=== PATIENT | female | born 1970 | race Caucasian/White ===

== ENCOUNTER 2018-12-30 08:37 | Emergency (ER) | payer OTHER ==
[2018-12-30 08:48] VITALS: PULSE 72; RESP 18
[2018-12-30] MEDS ORDERED: MORPHINE SULFATE 4 MG/ML SYRINGE IM STA (09:08)
--- NOTE | 2018-12-30 09:44 | CT ---
EXAMINATION TYPE: CT brain mike emerson con DATE OF EXAM: 12/30/2018 COMPARISON: None. HISTORY: Fall down stairs CT DLP: 1492.6 mGycm Automated exposure control for dose reduction was used. TECHNIQUE: CT scan of the head and cervical spine are performed without contrast. FINDINGS: BRAIN:Central structures are midline. There is no evidence of hydrocephalus. No acute focal lesion, m ass effect or midline shift is seen. I do not see evidence of intracranial blood. Visualized portions of the paranasal sinuses and mastoids are clear. The bony calvarium is intact. IMPRESSION: NORMAL CT SCAN OF THE BRAIN. CERVICAL SPINE: Visualized portions of the lungs are clear. There is right-sided thyromegaly with felix e calcifications within the thyroid gland. There is some shotty deep cervical adenopathy. Prevertebra l soft tissues are otherwise normal. There is a reversal normal cervical lordosis. Alignment is normal. Atlantoaxial relationships are nor mal. There is degenerative disc disease and hypertrophic spondylosis at C4-5 and C5-6. There is uncoverteb ral joint disease present at these levels. The facets are unremarkable. No definite protrusion is see n. No fracture is identified. IMPRESSION: 1. NO ACUTE OSSEOUS LESION. 2. DEGENERATIVE CHANGE. 3. RIGHT-SIDED THYROMEGALY.
--- NOTE | 2018-12-30 10:48 | ED ---
General Adult HPI - General Chief complaint: Fall Stated complaint: fall down stairs Time Seen by Provider: 12/30/18 08:49 Source: patient, RN notes reviewed Mode of arrival: ambulatory Limitations: no limitations - History of Present Illness Initial comments: 48-year-old female presents to the emergency determine for chief complaint of fall. Patient states she woke up this morning and it was dark and she tripped and fell down [address]. Triage note does say 20 but patient confirms that this is 14 and she had her daughter count. Patient states this happened this morning a couple hours ago but she was in pain so she decided to come to the emergency department. Patient did not lose consciousness but did hit her head and neck. Patient is not on any blood thinners. Patient is complaining of right shoulder pain and upper back pain head and neck pain as well as left lower leg pain. Patient denies any abdominal pain. Denies any lower back pain. No chest pain.Patient has no other complaints at this time including shortness of breath, chest pain, abdominal pain, nausea or vomiting, headache, or visual changes. - Related Data Home Medications Medication Instructions Recorded Confirmed predniSONE See Taper PO DAILY 12/30/18 12/30/18 Allergies Allergy/AdvReac Type Severity Reaction Status Date / Time wool Allergy Unknown Verified 12/30/18 09:53 Review of Systems ROS Statement: Those systems with pertinent positive or pertinent negative responses have been documented in the HPI. ROS Other: All systems not noted in ROS Statement are negative. Past Medical History Additional Past Medical History / Comment(s): Colitis History of Any Multi-Drug Resistant Organisms: None Reported Past Surgical History: Section, Orthopedic Surgery Past Psychological History: No Psychological Hx Reported Smoking Status: Current every day smoker Past Alcohol Use History: Rare Past Drug Use History: None Reported General Exam Limitations: no limitations General appearance: alert, in no apparent distress Head exam: Present: atraumatic (I do not see hematoma present on the scalp), normocephalic, normal inspection Eye exam: Present: normal appearance, PERRL, EOMI. Absent: scleral icterus, conjunctival injection, periorbital swelling ENT exam: Present: normal exam, normal oropharynx, mucous membranes moist, TM's normal bilaterally, normal external ear exam Neck exam: Present: normal inspection, tenderness (Tenderness cervical spine.), full ROM. Absent: meningismus, lymphadenopathy Respiratory exam: Present: normal lung sounds bilaterally. Absent: respiratory distress, wheezes, rales, rhonchi, stridor, chest wall tenderness (No chest wall tenderness or ecchymosis present of the chest) Cardiovascular Exam: Present: regular rate, normal rhythm, normal heart sounds. Absent: systolic murmur, diastolic murmur, rubs, gallop, clicks GI/Abdominal exam: Present: soft, normal bowel sounds. Absent: distended, tenderness, guarding, rebound, rigid, other (No ecchymosis present on the abdomen) Extremities exam: Present: other (Patient has mild amount of ecchymosis present to the right shoulder region with flexion and abduction of the right shoulder to about 90. Radial pulse 2+ in the right upper extremity. Sensation intact, hall supervisor strength 5 out of 5. Full range motion of the right elbow, no tenderness in the forearm. Patient also has ecchymosis noted to the left lower anterior tib-fib area. Is able to ambulate on this. Full range motion of the ankle and knee. Tenderness over area of ecchymosis. DP pulse 2+ bilaterally.) Back exam: Present: vertebral tenderness (She does have generalized thoracic spine tenderness, no lumbar spine tenderness, no ecchymosis present.). Absent: CVA tenderness (R), CVA tenderness (L) Neurological exam: Present: alert, oriented X3, CN II-XII intact Psychiatric exam: Present: normal affect, normal mood Course Vital Signs 12/30/18 08:42 Temperature 98 F Pulse Rate 72 Respiratory 18 Rate Blood Pressure 155/80 O2 Sat by Pulse 98 Oximetry Medical Decision Making - Medical Decision Making 48-year-old female presents to the emergency department for a chief complaint of fall down 14 stairs. No loss of consciousness. No blood thinners. Exam as documented. Brain CT shows no evidence of mass effect or midline shift. No evidence of intracranial blood. CT C-spine shows no acute osseous lesions. It does show right-sided thyromegaly which was discussed with patient. C-spine was cleared, collar removed. X-ray of the right humerus, left tib-fib, thoracic spine shows no acute osseous lesion. Chest x-ray shows a normal chest. Patient's pain is improved after morphine. Patient does have a ride home. Patient will follow-up with primary care in 1-2 days. Will return here if she has any worsening symptoms. Disposition Clinical Impression: Fall down stairs, Head injury, Shoulder injury Disposition: HOME SELF-CARE Condition: Good Instructions (If sedation given, give patient instructions): Head Injury (ED), Shoulder Pain (ED) Additional Instructions: Please follow up with primary care in 1-2 days. Take Motrin and Tylenol for pain. If you have any worsening symptoms return here to the emergency department. Is patient prescribed a controlled substance at d/c from ED?: No Referrals: Vishnu Avelar DO [Primary Care Provider] - 1-2 days Time of Disposition: 11:46
--- NOTE | 2018-12-30 10:54 | XR ---
EXAMINATION TYPE: XR chest 2V DATE OF EXAM ORDERED: 12/30/2018 HISTORY: Pain. REFERENCE: None. FINDINGS: The lungs are clear. Pleural spaces are clear. Heart size is normal. IMPRESSION: NORMAL CHEST.
--- NOTE | 2018-12-30 11:02 | XR ---
EXAMINATION TYPE: XR humerus RT , 3 VIEWS DATE OF EXAM ORDERED: 12/30/2018 HISTORY: Pain. COMPARISON: None. FINDINGS: No fracture, dislocation or other acute osseous lesion is seen. IMPRESSION: NO ACUTE OSSEOUS LESION.
--- NOTE | 2018-12-30 11:04 | XR ---
EXAMINATION TYPE: XR thoracic spine complete , 4 VIEWS DATE OF EXAM ORDERED: 12/30/2018 HISTORY: Pain. COMPARISON: None. FINDINGS: There is an S-shaped scoliosis convex to the right the upper thoracic spine and to the lef t in the lower thoracic spine. It is difficult to visualize the mid dorsal spine. Alignment appears m aintained. No definite fractures are seen. The pedicles are intact. Paraspinal soft tissues are joseph l. IMPRESSION: I DO NOT SEE AN ACUTE OSSEOUS LESION AT THIS TIME.
--- NOTE | 2018-12-30 11:06 | XR ---
EXAMINATION TYPE: XR tibia fibula LT , 2 VIEWS DATE OF EXAM ORDERED: 12/30/2018 HISTORY: Pain. COMPARISON: None. FINDINGS: No fracture, dislocation or other long bone lesion is seen. IMPRESSION: NO ACUTE OSSEOUS LESION.
[2018-12-30 11:56] VITALS: BP 130/77; TEMP 98
== END 2018-12-30 11:56 | disposition home or self-care (01) ==
LOC: EC 08:37
DX: S09.90XA Unspecified injury of head, initial encounter (principal); S49.91XA Unspecified injury of right shoulder and upper arm, initial encounter; S19.9XXA Unspecified injury of neck, initial encounter; S29.9XXA Unspecified injury of thorax, initial encounter; S89.92XA Unspecified injury of left lower leg, initial encounter; E01.0 Iodine-deficiency related diffuse (endemic) goiter; F17.200 Nicotine dependence, unspecified, uncomplicated; W10.9XXA Fall (on) (from) unspecified stairs and steps, initial encounter
CPT/HCPCS: 72072; 73060; 73590; 71046; 72125; 70450; 99284; 96372; J2270

== ENCOUNTER → 2019-01-15 | Outpatient (CLI) | payer OTHER ==
--- NOTE | 2019-01-15 12:29 | US ---
EXAMINATION TYPE: US thyroid st tissue head/neck DATE OF EXAM: 01/15/2019 COMPARISON: NONE CLINICAL HISTORY: E04.9 Nontoxic goiter, unspecified. GLAND SIZE: Right Lobe: 4.7 x 2.2 x 2.3 cm Overall Parenchyma: homogenous Left Lobe: 3.8 x 1.5 x 1.4 cm Overall Parenchyma: homogeneous Isthmus Thickness: 0.3 cm NODULES RIGHT: # of nodules measured on right: 1 1. 2.8 X 1.9 x 2.0 cm hypoechoic mixed nodule at the upper pole with well-defined margins; . This nodule is wider than tall and shows intranodular vascularity. Prior size: no prior LEFT: # of nodules measured on left: 0 Tiny 4 mm cyst on left thyroid. ISTHMUS: # of nodules measured in the isthmus: 0 Bilateral neck scanned, no evidence of lymphadenopathy. Nodule right lobe. IMPRESSION: Right-sided thyroid nodule is amenable to fine-needle aspiration if desired
== END | disposition home or self-care (01) ==
LOC: RADUSWWP 10:26
PROVIDERS: ATTEND Family Medicine
DX: E04.1 Nontoxic single thyroid nodule (principal)
CPT/HCPCS: 76536

== ENCOUNTER → 2019-06-10 | Outpatient (CLI) | payer OTHER ==
--- NOTE | 2019-06-10 13:56 | XR ---
EXAMINATION TYPE: XR cervical spine comp DATE OF EXAM: 06/10/2019 COMPARISON: NONE HISTORY: Pain TECHNIQUE: Four views are submitted. FINDINGS: The odontoid is intact. There are no compression deformities. The prevertebral soft tissue structur es are within normal limits. Calcification soft tissue the right neck likely vascular. Severe degene rative disc disease C4-5 and C5-C6 with posterior spondylosis. Foraminal encroachment both levels gre ater at C5-C6. IMPRESSION: 1. Severe degenerative disc disease C5-6 and C4-C5. Bilateral foraminal encroachment. Posterior spond ylosis C5-C6 likely results in canal stenosis recommend follow-up MRI.
== END | disposition home or self-care (01) ==
LOC: RADXRMAIN 13:37
PROVIDERS: ATTEND Family Medicine
DX: M48.02 Spinal stenosis, cervical region (principal); M50.321 Other cervical disc degeneration at C4-C5 level
CPT/HCPCS: 72050

== ENCOUNTER → 2019-06-29 | Outpatient (CLI) | payer OTHER | LOC: RADMRIMAIN 09:50 | PROVIDERS: ATTEND Family Medicine | DX: Z53.9 Procedure and treatment not carried out, unspecified reason (principal) ==

== ENCOUNTER → 2019-07-20 | Outpatient (CLI) | payer OTHER ==
--- NOTE | 2019-07-20 12:44 | MR ---
EXAMINATION TYPE: MR cervical spine wo con DATE OF EXAM: 07/20/2019 COMPARISON: X-ray 06/10/2019 CT scan [birth year]1989 HISTORY: Pain, cervical disc degeneration TECHNIQUE: Multiplanar, multisequence images of the cervical spine were acquired. C2-C3: No evidence for degenerative disc disease. No disc bulge/herniation or protrusion. No Canal stenosis. Foramina are patent bilaterally. C3-C4: No evidence for degenerative disc disease. No disc bulge/herniation or protrusion. No Canal stenosis. Foramina are patent bilaterally. C4-C5: Degenerative disc disease with broad-based disc herniation encroaching upon the anterior dao n of the spinal cord. Bilateral uncovertebral joint hypertrophy contribute to moderate to severe righ t foraminal encroachment and moderate left foraminal encroachment. There is moderate canal stenosis. C5-C6: Degenerative disc disease with uncovertebral joint hypertrophy. Moderate to severe bilateral f oraminal encroachment with mild central canal stenosis. Broad-based disc protrusion results in mild e ffacement of thecal sac. C6-C7: No evidence for degenerative disc disease. No disc bulge/herniation or protrusion. No Canal stenosis. Foramina are patent bilaterally. C7-T1: No evidence for degenerative disc disease. No disc bulge/herniation or protrusion. No Canal stenosis. Foramina are patent bilaterally. Cervical segments are intact. There is normal alignment. Cervical spinal cord is of normal signal. Craniovertebral junction relationships are within normal limits. Loss of the normal cervical lordos is noted. 2 cm right thyroid nodule. IMPRESSION: 1.C4-C5: Degenerative disc disease with broad-based disc herniation encroaching upon the anterior mar gin of the spinal cord. Bilateral uncovertebral joint hypertrophy contribute to moderate to severe ri ght foraminal encroachment and moderate left foraminal encroachment. There is moderate canal stenosis . 2. Degenerative disc disease C5-C6 with uncovertebral joint hypertrophy and moderate to severe bilate ral foraminal encroachment with mild canal stenosis. Broad-based disc protrusion results in mild effa cement of thecal sac. 3. There is a 2 cm right thyroid nodule correlate with ultrasound.
== END | disposition home or self-care (01) ==
LOC: RADMRIMAIN 10:41
PROVIDERS: ATTEND Family Medicine
DX: M48.02 Spinal stenosis, cervical region (principal); M50.31 Other cervical disc degeneration, high cervical region; M50.223 Other cervical disc displacement at C6-C7 level
CPT/HCPCS: 72141

== ENCOUNTER → 2019-10-28 | Outpatient (CLI) | payer SELFPAY | END | disposition home or self-care (01) | DX: R10.11 Right upper quadrant pain (principal) | CPT/HCPCS: 76700 ==

== ENCOUNTER → 2020-09-16 | Outpatient (CLI) | payer OTHER ==
--- NOTE | 2020-09-16 12:33 | XR ---
EXAMINATION TYPE: XR chest 2V DATE OF EXAM: 09/16/2020 COMPARISON: 12/30/2018 INDICATION: Chest pain TECHNIQUE: Frontal and lateral views of the chest are obtained. FINDINGS: The heart size is normal. The pulmonary vasculature is normal. The lungs are clear. IMPRESSION: 1. No acute pulmonary process.
== END | disposition home or self-care (01) ==
LOC: RADXRMAIN 11:55
PROVIDERS: ATTEND Family Medicine
DX: R07.89 Other chest pain (principal)
CPT/HCPCS: 71046

== ENCOUNTER → 2020-12-02 | Day surgery (SDC) | payer OTHER ==
[2020-11-27 15:37] VITALS: BMI 34.7
[~2020-12-02] MED LIST: LACTATED RINGERS 1,000 ML IV SCH; LIDOCAINE 1% (10MG/ML) FOR IV START INTRADERMA PRN; PROPOFOL 10 MG/ML 20 ML VIAL IV ONE
[2020-12-02 10:24] VITALS: TEMP 98.3
--- NOTE | 2020-12-02 11:09 | P.PCN ---
Date of Procedure: 12/02/20 Procedure(s) Performed: BRIEF HISTORY: Patient is a 50-year-old pleasant white female scheduled for an elective colonoscopy as a part of surveillance of long-standing history of ulcerative colitis diagnosed in 2011. Her last colonoscopy was in was in November 2018 which showed mild active colitis and was started on mesalamine. She is scheduled for a repeat surveillance colonoscopy today. Patient is in clinical remission. PROCEDURE PERFORMED: Colonoscopy with random biopsy. PREOPERATIVE DIAGNOSIS: Long-standing history of ulcerative colitis. IV sedation per Anesthesia. PROCEDURE: After informed consent was obtained, the patient, was brought into the endoscopy unit. IV sedation was administered by Anesthesia under continuous monitoring. Digital rectal examination was normal. Initially the Olympus CF-160 flexible video colonoscope was then inserted in the rectum, gradually advanced into the cecum without any difficulty. Careful examination was performed as the scope was gradually being withdrawn. Ileocecal valve and the appendiceal orifice were visualized and appeared normal. Prep was excellent. Mucosa of the cecum, ascending colon, transverse colon, descending colon, sigmoid colon, had diffuse mucosal erythema, cobblestoning of the mucosa loss of mucosal folds and ulcerations CONSISTENT with active colitis. Status post multiple biopsies to rule out dysplasia. There was mild erythema noted in the rectum. Retroflexion was performed in the rectum and no lesions were seen. The patient tolerated the procedure well. IMPRESSION: Diffuse active colitis noted throughout the entire colon with severe mucosal erythema, friability and loss of mucosal folds and haustrations, cobblestoning of the mucosa with mild mucosal narrowing in the sigmoid colon, consistent with with active colitis. Status post multiple random biopsies to rule out dysplasia. RECOMMENDATIONS: Findings of this examination were discussed with the patient well as her family. She was advised to follow with the biopsy results. She'll be seen in office in 2-3 weeks. Reason the biopsy results will consider biologic therapy as part of treatment of active colitis
[2020-12-02 11:24] VITALS: BP 132/78; PULSE 81; RESP 18
== END ==
LOC: ORWHC2ENDO 09:50
PROVIDERS: ATTEND Internal Medicine Gastroenterology
DX: Z12.11 Encounter for screening for malignant neoplasm of colon (principal); K51.90 Ulcerative colitis, unspecified, without complications; E03.9 Hypothyroidism, unspecified; F17.200 Nicotine dependence, unspecified, uncomplicated; Z79.899 Other long term (current) drug therapy
CPT/HCPCS: 81025; 88305; 45380; J2704

== ENCOUNTER → 2020-12-30 | Outpatient (CLI) | payer OTHER ==
[2020-12-30 15:05] LABS: African American GFR (CKD) 99.6 (60.0-200.0); Albumin 3.7 g/dL (3.80-4.90); Albumin/Globulin Ratio 1.68 (1.60-3.17); Anion Gap 6.8 mmol/L (4.00-12.00); BUN/Creat Ratio 12.5 Ratio (12.00-20.00); Calcium 8.9 mg/dL (8.7-10.3); Carbon Dioxide 25.2 mmol/L (21.6-31.8); Globulin 2.2 g/dL (1.6-3.3); Potassium 4.1 mmol/L (3.5-5.5); Total Bilirubin 0.3 mg/dL (0.2-1.2); Total Protein 5.9 g/dL (6.2-8.2)
[2020-12-30 16:25] LABS: Basophils # (A) 0.04 X 10*3/uL (0.00-0.10); Basophils % (A) 0.3 %; Eosinophils # (A) 0.17 X 10*3/uL (0.04-0.35); Eosinophils % (A) 1.3 %; HCT 41.2 % (37.2-46.3); HGB 12.6 g/dL (12.0-15.0); Lymphocytes # (A) 3.56 X 10*3/uL (0.90-5.00); Lymphocytes % (A) 27.9 %; MCH 29.2 pg (27.0-32.0); MCHC 30.6 g/dL (32.0-37.0); MCV 95.6 fL (80.0-97.0); Mean Platelet Volume 10.7 fL (9.5-12.2); Monocytes # (A) 1.15 X 10*3/uL (0.20-1.00); Neutrophils # (A) 7.78 X 10*3/uL (1.80-7.70); Platelet Count 250 X 10*3/uL (140-440); RBC 4.31 X 10*6/uL (4.10-5.20); WBC 12.76 X 10*3/uL (4.50-10.00)
[2020-12-30 17:32] LABS: Hepatitis B Surface AB- Quant <3.5 mIU/mL; Hepatitis B Surface Antibody Non-Reactive (Non-Reactive); Hepatitis B Surface Antigen Non-Reactive (Non-Reactive); Hepatitis C IgG Antibody Non-Reactive (Non-Reactive)
== END | disposition home or self-care (01) ==
LOC: LABWHC1 09:46
PROVIDERS: ATTEND Internal Medicine Gastroenterology
DX: K51.90 Ulcerative colitis, unspecified, without complications (principal)
CPT/HCPCS: 36415; 80053; 85025; 86480; 86706; 86803; 87340

== ENCOUNTER → 2021-11-12 | Outpatient (CLI) | payer OTHER ==
--- NOTE | 2021-11-12 11:30 | XR ---
EXAMINATION TYPE: XR lumbar spine 2 or 3V DATE OF EXAM: 11/12/2021 COMPARISON: None HISTORY: Sciatica TECHNIQUE: Lumbar spine is examined in 3 views FINDINGS: Vertebral body heights are preserved. There are 5 lumbar-type vertebral bodies. The pedicle s are intact. Disc heights are preserved. Alignment is normal. Vascular calcifications within the aor ta. MRI could be performed if additional evaluation would be of benefit. IMPRESSION: 1. Normal three-view lumbar spine
--- NOTE | 2021-11-12 11:34 | XR ---
EXAMINATION TYPE: XR Hip Complete LT DATE OF EXAM: 11/12/2021 COMPARISON: HISTORY: Pain in left hip TECHNIQUE: 2 view left hip FINDINGS: Femoral head articulates with the acetabulum. No acute fracture or dislocation is evident. Joint space appears preserved. Follow up exams can be performed 7-10 days from acute trauma for laurel nued pain. IMPRESSION: 1. No acute osseous abnormality left hip
== END | disposition home or self-care (01) ==
LOC: RADXRMAIN 10:48
PROVIDERS: ATTEND Family Medicine
DX: M25.552 Pain in left hip (principal); M54.31 Sciatica, right side
CPT/HCPCS: 72100; 73502

== ENCOUNTER → 2022-03-04 | Outpatient (CLI) | payer OTHER ==
--- NOTE | 2022-03-04 11:07 | XR ---
EXAMINATION TYPE: XR wrist complete LT DATE OF EXAM: 03/04/2022 CLINICAL HISTORY: pain TECHNIQUE: Frontal, lateral and oblique images of the left wrist are obtained. Scaphoid views also s ubmitted. COMPARISON: None. FINDINGS: There is no acute fracture/dislocation evident. The joint spaces appear within normal parekh its. The overlying soft tissue appears unremarkable. IMPRESSION: There is no acute fracture or dislocation seen. ICD 10 NO FRACTURE, INITIAL EVALUATION
== END | disposition home or self-care (01) ==
LOC: RADXRMAIN 10:22
PROVIDERS: ATTEND Nurse Practitioner Family
DX: M25.532 Pain in left wrist (principal)

== ENCOUNTER → 2022-05-06 | Outpatient (CLI) | payer OTHER ==
[2022-05-06 22:54] LABS: HCT 40.4 % (37.2-46.3); HGB 12.8 g/dL (12.0-15.0); MCH 30.3 pg (27.0-32.0); MCHC 31.7 g/dL (32.0-37.0); MCV 95.5 fL (80.0-97.0); Mean Platelet Volume 9.5 fL (9.5-12.2); NRBC Per 100 WBC 0 /100 WBCS (0.0-0.0); Platelet Count 328 X 10*3/uL (140-440); RBC 4.23 X 10*6/uL (4.10-5.20); RDW 12.5 % (11.5-14.5)
[2022-05-06 23:11] LABS: African American GFR (CKD) 92.2 (60.0-200.0); Anion Gap 12.7 mmol/L (10.00-18.00); Blood Urea Nitrogen 9.1 mg/dL (9.0-27.0); Carbon Dioxide 22.2 mmol/L (20.0-27.5); Non-African American GFR(CKD) 79.6 (60.0-200.0); Potassium 4.5 mmol/L (3.5-5.5)
== END | disposition home or self-care (01) ==
LOC: LABPAT 13:14
PROVIDERS: ATTEND Internal Medicine
DX: Z01.812 Encounter for preprocedural laboratory examination (principal)
CPT/HCPCS: 80051; 82565; 84520; 85027

== ENCOUNTER 2022-05-09 05:36 | Inpatient (IN) | payer OTHER ==
[2022-05-09] MEDS ORDERED: HEPARIN SODIUM,PORCINE 2,500 UNIT in SODIUM CHLORIDE 0.9% 250 ML IRRIGATION PRN (05:58)
[2022-05-09] MEDS ORDERED: ASPIRIN 325 MG TAB PO STA (05:58)
[2022-05-09] MEDS ORDERED: ATORVASTATIN 80 MG TAB PO STA (05:58)
[2022-05-09] MEDS ORDERED: ALPRAZolam 0.25 MG TAB PO PRN (05:58)
[2022-05-09] MEDS ORDERED: NITROGLYCERIN SL TABS 0.4 MG TAB SUBLINGUAL PRN (05:58)
[2022-05-09] MEDS ORDERED: ALPRAZolam 0.5 MG TAB PO PRN (05:58)
[2022-05-09] MEDS ORDERED: HEPARIN SODIUM,PORCINE 10,000 UNIT in SODIUM CHLORIDE 0.9% 1,000 ML IRRIGATION PRN (05:58)
[2022-05-09] MEDS: SODIUM CHLORIDE 0.9% 1,000 ML in EMPTY BAG 1 BAG IV SCH ×2 (06:30→18:46)
[2022-05-09 07:02] LABS: African American GFR (CKD) >90 (>60 ml/min/1.73 sqM); Anion Gap 11 mmol/L; Blood Urea Nitrogen 8 mg/dL (7-17); Calcium 9.1 mg/dL (8.4-10.2); Carbon Dioxide 22 mmol/L (22-30); Chloride 105 mmol/L (98-107); Glucose 106 mg/dL (74-99); Non-African American GFR(CKD) 90 (>60 ml/min/1.73 sqM); Potassium 4.6 mmol/L (3.5-5.1); Sodium 138 mmol/L (137-145)
[2022-05-09] MEDS ORDERED: VERAPAMIL 2.5 MG/ML 2 ML AMP ONE (07:19)
[2022-05-09 07:22] LABS: HCG,Qualitative Serum Not Detected
[2022-05-09] MEDS ORDERED: fentaNYL (PF) 50 MCG/ML 2 ML AMP ONE (07:33)
[2022-05-09] MEDS: MIDAZOLAM 2 MG/2 ML VIAL IV ONE ×2 (07:38→07:50)
[2022-05-09] MEDS ORDERED: fentaNYL (PF) 50 MCG/ML 2 ML AMP IV ONE (07:38)
[2022-05-09] MEDS ORDERED: LIDOCAINE 1% INJ 10MG/ML (30 ML VIAL-PF) SQ ONE (07:41)
[2022-05-09] MEDS: VERAPAMIL SYRINGE (5 MG/10 ML) INTRAARTER ONE ×2 (07:42→07:49)
[2022-05-09] MEDS ORDERED: NITROGLYCERIN 1000MCG/10ML SYRINGE INTRAARTER ONE (07:49)
[2022-05-09] MEDS: HEPARIN SODIUM 1,000 UN/ML (10ML VL) IV ONE ×5 (07:53→08:52)
[2022-05-09] MEDS ORDERED: TICAGRELOR 90 MG TAB ONE (08:20)
[2022-05-09] MEDS ORDERED: TICAGRELOR 90 MG TAB PO ONE (08:20)
[2022-05-09] MEDS: NITROGLYCERIN 1000MCG/10ML SYRINGE INTRACORON ONE ×4 (08:47→09:00)
[2022-05-09] MEDS ORDERED: IOPAMIDOL-370 125ML BTL INJ ONE (08:56)
[2022-05-09] MEDS ORDERED: IOPAMIDOL-370 100ML BTL INJ ONE (09:05)
[2022-05-09] MEDS ORDERED: METOPROLOL SUCCINATE (ER) 25 MG TAB.ER.24H PO STA (09:43)
[2022-05-09] MEDS ORDERED: RIMEGEPANT SULFATE PO PRN (10:16)
[2022-05-09] MEDS ORDERED: RX INFO: IV CONTRAST WAS GIVEN 1 EACH MISC MISCELLANE PRN (10:18)
[2022-05-09] MEDS ORDERED: ZOLPIDEM 5 MG TAB PO PRN (10:18)
[2022-05-09] MEDS ORDERED: MAG HYDROX/AL HYDROX/SIMETH 30 ML CUP PO PRN (10:18)
[2022-05-09] MEDS ORDERED: ATROPINE SULFATE 0.1 MG/ML 10ML SYRINGE IV PRN (10:18)
[2022-05-09] MEDS ORDERED: NITROGLYCERIN-D5W PMX 50 MG in DEXTROSE/WATER 1 250ML.BAG IV SCH (11:15)
--- NOTE | 2022-05-09 13:45 | P.PRCINT ---
Percutaneous Coronary Int. - Percutaneous Coronary Intervention Percutaneous Coronary Intervention: PROCEDURES PERFORMED: Left heart catheterization, bilateral coronary angiography, iFR RCA, PCI proximal RCA with 3.5 x 12mm Xience ARTURO, post dilated with a 3.5 NC, PCI distal RCA with a 3.0 x 12mm Xience ARTURO, CSI rotational atherectomy INDICATION: Chest pain with exertion consistent with angina, equivocal stress test CONSENT:I have discussed the risks, benefits and alternative therapies for the above-mentioned procedure and for both sedation/analgesia as well as necessary blood product administration, if indicated, as they pertain to this patient. The patient has indicated understanding and acceptance of the risks and procedures discussed. PROCEDURE: After the risks, benefits and alternatives of the above mentioned procedure explained in detail with the patient, informed consent was obtained. Patient was taken to the catheterization lab and prepped and draped in usual fashion. 1% lidocaine was used to anesthetize the right radial artery. A 6- Dominican sheath was placed in the right radial artery using modified Seldinger technique. Left coronary angiography was performed with a 5-Dominican JL 3.5 catheter and right coronary angiography was performed with a 5-Dominican JR5 catheter in various views. A 5-Dominican FR5 catheter was inserted into the left ventricle and pressure measurements were obtained. The decision was made to perform iFR of the RCA. Heparin was given for ACT greater than 250. A 6-Dominican AL 0.75 guide was used to engage the RCA. A 0.014 pressure wire was advanced into the proximal RCA and normalize. The wire was advanced 1 cm distal to the proximal lesion in noted to be abnormal at 0.84. Therefore the decision was made to perform PCI of the RCA. A 0.014 BMW wire was advanced into the distal RCA. Predilation was performed with a 2.75 x 8 mm balloon of the proximal and mid lesions. The balloon was noted to have severe underexpansion with significant calcification and therefore the decision was made to perform atherectomy. A 0.014 Viper wire is advanced into the distal RCA and CSI rotational atherectomy was performed for 3 runs low speed to the proximal and mid lesions and one run on high-speed to the proximal lesion. Next balloon angioplasty of the proximal lesion was performed with a 3.25 noncompliant balloon. Next a 3.0 x 12 mm Xience ARTURO was placed in the mid to distal RCA. Next a 3.5 x 12 mm Xience ARTURO was placed in the proximal RCA. The mid to distal portion of the stent was post dilated with a 3.5 NC balloon. Patient did have mild amount of chest discomfort which began after atherectomy which appear related to microvascular dysfunction however excellent angiographic response and chest pain had been improving. Pre-intervention there was 80% proximal RCA and 70% mid to distal RCA stenosis with DELPHINE 3 flow and postintervention there was less than 10% stenosis and DELPHINE-3 flow. The right radial sheath was removed and a TR band was placed with hemostasis achieved. The patient tolerated the procedure well. Patient was transported back to the post catheterization holding area in stable condition. Conscious Sedation: Patient was monitored under the direct supervision of vision of myself for conscious sedation using Versed and fentanyl for a total duration of 86 minutes HEMODYNAMICS: Aortic: 172/77 LV: 180/13, LVEDP 23 SELECTIVE CORONARY ARTERIOGRAPHY: LEFT MAIN: The left main is a large caliber vessel which bifurcates into the LAD and circumflex. There is no significant stenosis. LEFT ANTERIOR DESCENDING CORONARY ARTERY: LAD is a large caliber vessel which wraps around to the apex. There is proximal LAD 40% stenosis and a small caliber diagonal 1 branch with 100% stenosis and left to left collaterals. There are otherwise mild luminal irregularities. LEFT CIRCUMFLEX CORONARY ARTERY: Left circumflex is a moderate caliber vessel without significant stenosis. RIGHT CORONARY ARTERY: The right coronary artery is a large caliber vessel which gives off a PDA and PLV branch and is the dominant vessel. There is proximal RCA 80% stenosis and mid to distal RCA 70% stenosis. FINAL IMPRESSION: 1. CAD as dscribed above including proximal RCA 80%, mid to distal RCA 70%, small caliber diagonal 100% with left to left collaterals, 2. S/p PCI proximal RCA with 3.5 x 12mm Xience ARTURO, post dilated with a 3.5 NC, PCI distal RCA with a 3.0 x 12mm Xience ARTURO, CSI rotational atherectomy 3. Elevated left sided filling pressures PLAN: 1. Aggressive risk factor modification per most recent ACC/AHA guidelines. 2. Continue dual antiplatelets with aspirin and Brillinta for 12 months. 3. If patient continues to have angina, may consider PCI of diagonal branch.
[2022-05-09] MEDS: IBUPROFEN 600 MG TAB PO PRN (19:50)
[2022-05-09] MEDS: TICAGRELOR 90 MG TAB PO SCH (19:51)
[2022-05-09] MEDS ORDERED: BALSALAZIDE DISODIUM 750 MG CAPSULE PO SCH (21:00)
[2022-05-09] MEDS ORDERED: tiZANidine 4 MG TAB PO SCH (21:00)
[2022-05-09] MEDS ORDERED: ATORVASTATIN 80 MG TAB PO SCH (21:00)
[2022-05-09] MEDS ORDERED: ESCITALOPRAM 10 MG TAB PO SCH (21:00)
[2022-05-10] MEDS ORDERED: PANTOPRAZOLE 40 MG TABLET PO SCH (07:30)
[2022-05-10 08:50] LABS: Basophils # (A) 0.1 k/uL (0-0.2); Basophils % (A) 1 %; Eosinophils # (A) 0.3 k/uL (0-0.7); Eosinophils % (A) 4 %; HCT 42.8 % (34.0-46.0); HGB 13.7 gm/dL (11.4-16.0); Hypochromasia Slight; Lymphocytes # (A) 1.2 k/uL (1.0-4.8); Lymphocytes % (A) 19 %; MCH 30.7 pg (25.0-35.0); MCHC 31.9 g/dL (31.0-37.0); MCV 96.1 fL (80.0-100.0); Monocytes # (A) 0.5 k/uL (0-1.0); Monocytes % (A) 8 %; Neutrophils # (A) 4.3 k/uL (1.3-7.7); Neutrophils % (A) 67 %; Platelet Count 343 k/uL (150-450); RBC 4.45 m/uL (3.80-5.40); WBC 6.4 k/uL (3.8-10.6)
[2022-05-10] MEDS ORDERED: ASPIRIN 81 MG PO SCH (09:00)
[2022-05-10] MEDS ORDERED: METOPROLOL SUCCINATE (ER) 25 MG TAB.ER.24H PO SCH (09:00)
[2022-05-10] MEDS ORDERED: MELOXICAM 7.5 MG TAB PO SCH (09:00)
[2022-05-10 09:14] LABS: African American GFR (CKD) >90 (>60 ml/min/1.73 sqM); Anion Gap 12 mmol/L; Blood Urea Nitrogen 9 mg/dL (7-17); Calcium 8.9 mg/dL (8.4-10.2); Carbon Dioxide 20 mmol/L (22-30); Chloride 105 mmol/L (98-107); Glucose 111 mg/dL (74-99); Non-African American GFR(CKD) 85 (>60 ml/min/1.73 sqM); Potassium 4.3 mmol/L (3.5-5.1); Sodium 137 mmol/L (137-145)
[2022-05-10 09:43] VITALS: BP 130/77; PULSE 83; RESP 18; TEMP 98.7
[2022-05-10] MEDS: IBUPROFEN 600 MG TAB PO PRN (10:03)
[2022-05-10] MEDS: TICAGRELOR 90 MG TAB PO SCH (10:03)
[2022-05-10 11:48] VITALS: BMI 34.4
== END 2022-05-10 14:18 | disposition home or self-care (01) | DRG 247 ==
LOC: CATHCVL 05:36 → 3SCARD 09:06
PROVIDERS: ADMIT Internal Medicine; ATTEND Internal Medicine
PROC: 02C03ZZ Extirpation of Matter from Coronary Artery, One Artery, Percutaneous Approach (ICD-10-PCS; principal; 2022-05-09 07:30)
PROC: B2111ZZ Fluoroscopy of Multiple Coronary Arteries using Low Osmolar Contrast (ICD-10-PCS; principal; 2022-05-09 07:30)
PROC: 4A033BC Measurement of Arterial Pressure, Coronary, Percutaneous Approach (ICD-10-PCS; principal; 2022-05-09 07:30)
PROC: 4A023N7 Measurement of Cardiac Sampling and Pressure, Left Heart, Percutaneous Approach (ICD-10-PCS; principal; 2022-05-09 07:30)
PROC: 027035Z Dilation of Coronary Artery, One Artery with Two Drug-eluting Intraluminal Devices, Percutaneous Approach (ICD-10-PCS; principal; 2022-05-09 07:30)
DX: I25.119 Atherosclerotic heart disease of native coronary artery with unspecified angina pectoris (principal); E78.5 Hyperlipidemia, unspecified; Z20.822 Contact with and (suspected) exposure to COVID-19; Z28.310 Unvaccinated for COVID-19; I25.84 Coronary atherosclerosis due to calcified coronary lesion; I49.3 Ventricular premature depolarization; G62.9 Polyneuropathy, unspecified; M54.12 Radiculopathy, cervical region; F17.210 Nicotine dependence, cigarettes, uncomplicated; Z71.6 Tobacco abuse counseling; Z79.1 Long term (current) use of non-steroidal anti-inflammatories (NSAID); Z79.82 Long term (current) use of aspirin; Z79.899 Other long term (current) drug therapy; Z60.2 Problems related to living alone; Z71.3 Dietary counseling and surveillance; Z82.49 Family history of ischemic heart disease and other diseases of the circulatory system
CPT/HCPCS: 80048; 84703; 85025; 87635; 93458; 93799

== ENCOUNTER 2022-09-04 09:15 | Observation (INO) | payer OTHER ==
[2022-09-04] MEDS ORDERED: SODIUM CHLORIDE 0.9% 1,000 ML IV STA (09:29)
[2022-09-04] MEDS ORDERED: METOCLOPRAMIDE 5 MG/ML 2 ML VIAL IVP STA (09:30)
[2022-09-04] MEDS ORDERED: MECLIZINE 12.5 MG TAB PO STA (09:30)
--- NOTE | 2022-09-04 09:38 | ED ---
General Adult HPI - General Chief complaint: Dizziness Stated complaint: Dizziness Time Seen by Provider: 09/04/22 09:23 Source: patient, RN notes reviewed Mode of arrival: ambulatory Limitations: no limitations - History of Present Illness Initial comments: Patient is a pleasant 52-year-old female presenting to the emergency department with concern for dizziness. Onset of symptoms was when she woke this morning. Patient rolled over and suddenly felt spinning. He should states symptoms continue. Patient states symptoms are minimal at rest but severe with upright position and head movements. No history of similar symptoms previous.. Patient did have episode of chest discomfort lasting 10-15 minutes which was somewhat mild and resolved at this time. - Related Data Home Medications Medication Instructions Recorded Confirmed Aspirin [Adult Low Dose Aspirin EC] 81 mg PO DAILY 05/06/22 05/09/22 Escitalopram [Lexapro] 10 mg PO HS 05/06/22 05/09/22 Ibuprofen [Motrin] 600 mg PO TID PRN 05/06/22 05/09/22 Meloxicam [Mobic] 15 mg PO DAILY 05/06/22 05/09/22 Mesalamine 1.2 gm PO HS 05/06/22 05/09/22 Metoprolol Succinate [Metoprolol 25 mg PO DAILY 05/06/22 05/09/22 Succinate ER] Nitroglycerin Sl Tabs [Nitrostat] 0.4 mg SUBLINGUAL Q5M PRN 05/06/22 05/06/22 Nystatin 100,000 Unit/ml Susp 5 ml PO BID 05/06/22 05/09/22 [Mycostatin Oral Susp] Omeprazole [PriLOSEC] 20 mg PO DAILY 05/06/22 05/09/22 Rimegepant Sulfate [Nurtec Odt] 75 mg PO BID PRN 05/06/22 05/09/22 tiZANidine [Zanaflex] 4 mg PO HS 05/06/22 05/09/22 Previous Rx's Medication Instructions Recorded Atorvastatin [Lipitor] 80 mg PO HS #90 tab 05/10/22 Ticagrelor [Brilinta] 90 mg PO BID #60 tab 05/10/22 Allergies Allergy/AdvReac Type Severity Reaction Status Date / Time wool Allergy Rash/Hives Verified 09/04/22 09:22 Review of Systems ROS Statement: Those systems with pertinent positive or pertinent negative responses have been documented in the HPI. ROS Other: All systems not noted in ROS Statement are negative. Constitutional: Denies: fever Eyes: Denies: eye pain ENT: Denies: ear pain Respiratory: Denies: cough Cardiovascular: Reports: chest pain Endocrine: Denies: fatigue Gastrointestinal: Reports: nausea, vomiting. Denies: abdominal pain Genitourinary: Denies: dysuria Neurological: Reports: as per HPI, vertigo. Denies: headache, weakness, numbness, paresthesias, confusion, abnormal gait Past Medical History Past Medical History: Chest Pain / Angina, GI Bleed, Hyperlipidemia, Osteoarthritis (OA), Thyroid Disorder Additional Past Medical History / Comment(s): See Dr Edward's H&P. Chest pain going on 2 yrs, progressively worsening. Plantar Fasciitis. Colitis. Thyroid nodule. Broke neck 3 yrs ago after falling down stairs - " Have a couple of cracks in my neck." Migraines. History of Any Multi-Drug Resistant Organisms: None Reported Past Surgical History: Section, Orthopedic Surgery Additional Past Surgical History / Comment(s): Left arm surgery. Dental work. Past Anesthesia/Blood Transfusion Reactions: No Reported Reaction Additional Past Anesthesia/Blood Transfusion Reaction / Comment(s): Mom PONV. Past Psychological History: Depression Smoking Status: Current some day smoker Past Alcohol Use History: Rare Past Drug Use History: None Reported - Past Family History Mother Family Medical History: AICD/Pacemaker, Cancer Additional Family Medical History / Comment(s): Uterine cancer. General Exam Limitations: no limitations General appearance: alert, in no apparent distress Head exam: Present: atraumatic, normocephalic Eye exam: Present: normal appearance, PERRL, EOMI. Absent: nystagmus Neck exam: Present: normal inspection Respiratory exam: Present: normal lung sounds bilaterally Cardiovascular Exam: Present: regular rate, normal rhythm Expanded Peripheral pulses: 2+: Radial (R), Radial (L), Posterior Tibialis (R), Posterior Tibialis (L), Dorsalis Pedis (R), Dorsalis Pedis (L) GI/Abdominal exam: Present: soft. Absent: tenderness Extremities exam: Present: normal inspection. Absent: pedal edema, calf tenderness Neurological exam: Present: alert, oriented X3, CN II-XII intact. Absent: motor sensory deficit Expanded Neurological exam: Present: protecting the airway Patient oriented to: Present: person, place, time Speech: Present: fluid speech Cranial nerves: EOM's Intact: Normal, Facial Sensation: Normal Cerebellar function: Finger to Nose: Normal Sensory exam: Upper Extremity Light Touch: Normal, Lower Extremity Light Touch: Normal Motor strength exam: RUE: 5, LUE: 5, RLE: 5, LLE: 5 Eye Response: (4) open spontaneously Motor Response: (6) obeys commands Verbal Response: (5) oriented Psychiatric exam: Present: normal affect, normal mood Skin exam: Present: normal color Course Vital Signs 09/04/22 09:16 Temperature 98 F Pulse Rate 85 Respiratory 18 Rate Blood Pressure 172/78 Medical Decision Making - Medical Decision Making Was pt. sent in by a medical professional or institution (, PA, REPAIRER CONTROLLER TESTER, urgent care, hospital, or long term...) When possible be specific @ -No Did you speak to anyone other than the patient for history (EMS, parent, family, police, friend...)? What history was obtained from this source @ -Daughter present and helps provide history including previous cardiac history Did you review nursing and triage notes (agree or disagree)? Why? @ -I reviewed and agree with nursing and triage notes Were old charts reviewed (outside hosp., previous admission, EMS record, old EKG, old radiological studies, urgent care reports/EKG's, long term records)? Report findings @ -Previously admission reviewed Differential Diagnosis (chest pain, altered mental status, abdominal pain women, abdominal pain men, vaginal bleeding, weakness, fever, dyspnea, syncope, headache, dizziness, GI bleed, back pain, seizure, CVA, palpatations, mental health)? @ -And DM differential chest pain.Differential Weakness: Hypoglycemia, shock, sepsis, hyponatremia, anemia, infection, WI, ETOH, adverse medicine reaction, overdose, stroke, this is not meant to be an all-inclusive list.Differential Chest Pain: Stable Angina, Unstable Angina, STEMI, NSTEMI Aortic Dissection, Pneumothorax, Musculoskeletal, Esophageal Spasm GERD, Cholecystitis, Pancreatitis, Zoster, this is not meant to be an all-inclusive list. EKG interpreted by me (3pts min.). @ -As above X-rays interpreted by me (1pt min.). @ -Chest x-ray shows no acute process CT interpreted by me (1pt min.). @ -Report reviewed U/S interpreted by me (1pt. min.). @ -None done What testing was considered but not performed or refused? (CT, X-rays, U/S, labs)? Why? @ -None What meds were considered but not given or refused? Why? @ -None Did you discuss the management of the patient with other professionals (professionals i.e. DrZoya, PA, REPAIRER CONTROLLER TESTER, lab, RT, psych nurse, social media campaign manager, cyber security analyst, teacher, job placement officer, high risk case manager)? Give summary @ -Case discussed with Dr. León, who will admit for Dr. Avelar Was smoking cessation discussed for >3mins.? @ -No Was critical care preformed (if so, how long)? @ -No Were there social determinants of health that impacted care today? How? (Homelessness, low income, unemployed, alcoholism, drug addiction, transportation, low edu. Level, literacy, decrease access to med. care, senior living, rehab)? @ -No Was there de-escalation of care discussed even if they declined (Discuss DNR or withdrawal of care, Hospice)? DNR status @ -No What co-morbidities impacted this encounter? (DM, HTN, Smoking, COPD, CAD, Cancer, CVA, ARF, Chemo, Hep., AIDS, mental health diagnosis, sleep apnea, morbid obesity)? @ -Previous cardiac disease and stenting recently. All Was patient admitted / discharged? Hospital course, mention meds given and route, prescriptions, significant lab abnormalities, going to OR and other pertinent info. @ -Patient reevaluated and around 25% improved. Patient unable to tolerate Antivert and will try again. Patient also will be provided scopolamine. Patient will be admitted for cardiac evaluation and further improvement of vertigo symptoms. Admission orders written. Undiagnosed new problem with uncertain prognosis? @ -No Drug Therapy requiring intensive monitoring for toxicity (Heparin, Nitro, Insulin, Cardizem)? @ -No Were any procedures done? @ -No Diagnosis/symptom? @ -Vertigo, chest pain Acute, or Chronic, or Acute on Chronic? @ -Acute, acute Uncomplicated (without systemic symptoms) or Complicated (systemic symptoms)? @ -Uncomplicated at this time Side effects of treatment? @ -No Exacerbation, Progression, or Severe Exacerbation? @ -No Poses a threat to life or bodily function? How? (Chest pain, [place], [place], pneumonia, PE, COPD, DKA, ARF, appy, cholecystitis, CVA, Diverticulitis, Homicidal, Suicidal, threat to staff... and all critical care pts) @ -Potential threat to both and bodily function if further testing reveals more significant disease - Lab Data Result diagrams: 09/04/22 09:39 09/04/22 09:39 Lab Results 09/04/22 09/04/22 09/04/22 Range/Units 09:39 09:39 09:39 WBC 7.0 (3.8-10.6) k/uL RBC 4.37 (3.80-5.40) m/uL Hgb 11.8 (11.4-16.0) gm/dL Hct 36.2 (34.0-46.0) % MCV 82.7 (80.0-100.0) fL MCH 26.9 (25.0-35.0) pg MCHC 32.5 (31.0-37.0) g/dL RDW 13.9 (11.5-15.5) % Plt Count 306 (150-450) k/uL MPV 6.8 Neutrophils % 76 % Lymphocytes % 13 % Monocytes % 6 % Eosinophils % 3 % Basophils % 1 % Neutrophils # 5.3 (1.3-7.7) k/uL Lymphocytes # 0.9 L (1.0-4.8) k/uL Monocytes # 0.4 (0-1.0) k/uL Eosinophils # 0.2 (0-0.7) k/uL Basophils # 0.0 (0-0.2) k/uL PT 9.7 (9.0-12.0) sec INR 0.9 (<1.2) APTT 19.5 L (22.0-30.0) sec Sodium 139 (137-145) mmol/L Potassium 4.4 (3.5-5.1) mmol/L Chloride 107 (98-107) mmol/L Carbon Dioxide 23 (22-30) mmol/L Anion Gap 9 mmol/L BUN 15 (7-17) mg/dL Creatinine 0.75 (0.52-1.04) mg/dL Est GFR (CKD-EPI)AfAm >90 (>60 ml/min/1.73 sqM) Est GFR (CKD-EPI)NonAf >90 (>60 ml/min/1.73 sqM) Glucose 131 H (74-99) mg/dL Calcium 9.0 (8.4-10.2) mg/dL Magnesium 1.7 (1.6-2.3) mg/dL Total Bilirubin 0.4 (0.2-1.3) mg/dL AST 65 H (14-36) U/L ALT 44 H (4-34) U/L Alkaline Phosphatase 285 H (38-126) U/L Troponin I (0.000-0.034) ng/mL Total Protein 7.3 (6.3-8.2) g/dL Albumin 4.1 (3.5-5.0) g/dL 09/04/22 Range/Units 09:39 WBC (3.8-10.6) k/uL RBC (3.80-5.40) m/uL Hgb (11.4-16.0) gm/dL Hct (34.0-46.0) % MCV (80.0-100.0) fL MCH (25.0-35.0) pg MCHC (31.0-37.0) g/dL RDW (11.5-15.5) % Plt Count (150-450) k/uL MPV Neutrophils % % Lymphocytes % % Monocytes % % Eosinophils % % Basophils % % Neutrophils # (1.3-7.7) k/uL Lymphocytes # (1.0-4.8) k/uL Monocytes # (0-1.0) k/uL Eosinophils # (0-0.7) k/uL Basophils # (0-0.2) k/uL PT (9.0-12.0) sec INR (<1.2) APTT (22.0-30.0) sec Sodium (137-145) mmol/L Potassium (3.5-5.1) mmol/L Chloride (98-107) mmol/L Carbon Dioxide (22-30) mmol/L Anion Gap mmol/L BUN (7-17) mg/dL Creatinine (0.52-1.04) mg/dL Est GFR (CKD-EPI)AfAm (>60 ml/min/1.73 sqM) Est GFR (CKD-EPI)NonAf (>60 ml/min/1.73 sqM) Glucose (74-99) mg/dL Calcium (8.4-10.2) mg/dL Magnesium (1.6-2.3) mg/dL Total Bilirubin (0.2-1.3) mg/dL AST (14-36) U/L ALT (4-34) U/L Alkaline Phosphatase (38-126) U/L Troponin I <0.012 (0.000-0.034) ng/mL Total Protein (6.3-8.2) g/dL Albumin (3.5-5.0) g/dL Disposition Clinical Impression: Chest pain, Vertigo Disposition: ADMITTED IP TO THIS HOSP Is patient prescribed a controlled substance at d/c from ED?: No Referrals: Vishnu Avelar DO [Primary Care Provider] - 1-2 days Time of Disposition: 11:19
[2022-09-04 09:53] LABS: Basophils % (A) 1 %; Eosinophils # (A) 0.2 k/uL (0-0.7); Eosinophils % (A) 3 %; HCT 36.2 % (34.0-46.0); HGB 11.8 gm/dL (11.4-16.0); Lymphocytes # (A) 0.9 k/uL (1.0-4.8); Lymphocytes % (A) 13 %; MCH 26.9 pg (25.0-35.0); MCHC 32.5 g/dL (31.0-37.0); MCV 82.7 fL (80.0-100.0); Mean Platelet Volume 6.8; Monocytes # (A) 0.4 k/uL (0-1.0); Monocytes % (A) 6 %; Neutrophils # (A) 5.3 k/uL (1.3-7.7); Neutrophils % (A) 76 %; Platelet Count 306 k/uL (150-450); RBC 4.37 m/uL (3.80-5.40); RDW 13.9 % (11.5-15.5)
[2022-09-04 10:25] LABS: ALT 44 U/L (4-34); AST 65 U/L (14-36); African American GFR (CKD) >90 (>60 ml/min/1.73 sqM); Albumin 4.1 g/dL (3.5-5.0); Alkaline Phosphatase 285 U/L (38-126); Anion Gap 9 mmol/L; Blood Urea Nitrogen 15 mg/dL (7-17); Carbon Dioxide 23 mmol/L (22-30); Chloride 107 mmol/L (98-107); Glucose 131 mg/dL (74-99); Magnesium 1.7 mg/dL (1.6-2.3); Non-African American GFR(CKD) >90 (>60 ml/min/1.73 sqM); Potassium 4.4 mmol/L (3.5-5.1); Sodium 139 mmol/L (137-145); Total Bilirubin 0.4 mg/dL (0.2-1.3); Total Protein 7.3 g/dL (6.3-8.2)
[2022-09-04 10:29] LABS: INR 0.9 (<1.2); Prothrombin Time 9.7 sec (9.0-12.0)
[2022-09-04 10:34] LABS: Partial Thromboplastin Time 19.5 sec (22.0-30.0)
--- NOTE | 2022-09-04 11:00 | CT ---
EXAMINATION TYPE: CT brain wo con DATE OF EXAM: 09/04/2022 COMPARISON: None HISTORY: dizzy CT DLP: 1099.4 mGycm Automated exposure control for dose reduction was used. FINDINGS: The ventricles, basal cisterns and sulci over the convexities are within normal limits and there is n o mass effect or shift of the midline structures. No abnormal density is seen throughout the brain parenchyma. There is no acute intra or extra-axial h emorrhage. The posterior fossa is grossly normal. The intraorbital contents appear normal and symmetric. There is an air-fluid level within the right maxillary sinus consistent with acute sinusitis. The mastoid air cells are well aerated. IMPRESSION: 1. No acute bleed or mass effect. 2. Acute right maxillary sinusitis.
--- NOTE | 2022-09-04 11:08 | XR ---
EXAMINATION TYPE: XR chest 2V DATE OF EXAM: 09/04/2022 COMPARISON: 09/16/2020 HISTORY: Chest pain TECHNIQUE: Frontal and lateral views of the chest are obtained. FINDINGS: There is no focal air space opacity, pleural effusion, or pneumothorax seen. The cardiac silhouette size is within normal limits. The osseous structures are intact. IMPRESSION: No acute cardiopulmonary process.
[2022-09-04] MEDS ORDERED: SCOPOLAMINE 1 MG/72 HR PATCH TRANSDERM STA (11:16)
[2022-09-04] MEDS ORDERED: NITROGLYCERIN SL TABS 0.4 MG TAB SUBLINGUAL PRN ×2 (11:20→18:56)
[2022-09-04] MEDS ORDERED: ASPIRIN 81 MG PO STA (11:20)
[2022-09-04] MEDS: NITROGLYCERIN OINT 1 INCH/GM PACKET TOPICAL SCH ×3 (11:46→23:27)
--- NOTE | 2022-09-04 13:56 | P.CRDCN ---
History of Present Illness Consult date: 09/04/22 Chief complaint: Dizziness and lightheadedness/chest discomfort History of present illness: This is a 52-year-old female patient with a past medical history significant for coronary artery disease and prior stenting of the RCA was performed in April 2022 as well as hypertension and dyslipidemia. The patient is known to our service and follows with Dr. Edward regularly. She presented to the emergency department complaining of dizziness and lightheadedness. She was in her usual state of health until this morning when she workup complaining of dizziness and lightheadedness related to certain position of her head. She describes the dizziness as a spinning. No associated symptoms of presyncope or syncope and no heart racing or fluttering and no nausea or vomiting. But later after that she started experiencing discomfort in the chest. She describes the discomfort as a pressure/dull kind of discomfort in the middle of the chest with no radiation and no associated symptoms reach she states that the discomfort is clearly diff erent from what she had when she underwent stenting of the right coronary artery. The last heart catheterization was performed in April 2022 when she underwent stenting of the RCA and was found to have [id number] disease involving the left coronary system which has been treated medically. She underwent a workup during this admission including an EKG showing sinus rhythm with no significant ST or T-wave abnormalities and first set of cardiac enzymes came in to be unremarkable. Chest x-ray did not show any acute abnormalities. The rest of the blood work has been unremarkable. Currently the patient is not experiencing any chest pain or chest discomfort but she continues to have d izziness and lightheadedness with turning her head to the left sides. Past Medical History Past Medical History: Chest Pain / Angina, GI Bleed, Hyperlipidemia, Osteoarthritis (OA), Thyroid Disorder Additional Past Medical History / Comment(s): See Dr Edward's H&P. Chest pain going on 2 yrs, progressively worsening. Plantar Fasciitis. Colitis. Thyroid nodule. Broke neck 3 yrs ago after falling down stairs - " Have a couple of cr acks in my neck." Migraines. History of Any Multi-Drug Resistant Organisms: None Reported Past Surgical History: Section, Orthopedic Surgery Additional Past Surgical History / Comment(s): Left arm surgery. Dental work. Past Anesthesia/Blood Transfusion Reactions: No Reported Reaction Additional Past Anesthesia/Blood Transfusion Reaction / Comment(s): Leyla NEALV. Past Psychological History: Depression Smoking Status: Current some day smoker Past Alcohol Use History: Rare Past Drug Use History: None Reported - Past Family History Mother Family Medical History: AICD/Pacemaker, Cancer Additional Family Medical History / Comment(s): Uterine cancer. Medications and Allergies Home Medications Medication Instructions Recorded Confirmed Type Aspirin [Adult Low Dose Aspirin EC] 81 mg PO DAILY 05/06/22 09/04/22 History Escitalopram [Lexapro] 10 mg PO HS 05/06/22 09/04/22 History Ibuprofen [Motrin] 600 mg PO TID PRN 05/06/22 09/04/22 History Meloxicam [Mobic] 15 mg PO DAILY 05/06/22 09/04/22 History Mesalamine 4.8 gm PO DAILY 05/06/22 09/04/22 History Metoprolol Succinate [Metoprolol 25 mg PO DAILY 05/06/22 09/04/22 History Succinate ER] Nitroglycerin Sl Tabs [Nitrostat] 0.4 mg SL Q5M PRN 05/06/22 09/04/22 History Omeprazole [PriLOSEC] 20 mg PO DAILY 05/06/22 09/04/22 History Rimegepant Sulfate [Nurtec Odt] 75 mg PO BID PRN 05/06/22 09/04/22 History tiZANidine [Zanaflex] 4 mg PO HS 05/06/22 09/04/22 History Atorvastatin [Lipitor] 80 mg PO HS #90 tab 05/10/22 09/04/22 Rx Ticagrelor [Brilinta] 90 mg PO BID #60 tab 05/10/22 09/04/22 Rx Allergies Allergy/AdvReac Type Severity Reaction Status Date / Time wool Allergy Rash/Hives Verified 09/04/22 13:32 Physical Exam Vitals: Vital Signs Temp Pulse Resp BP Pulse Ox 09/04/22 13:10 84 15 126/66 99 09/04/22 12:00 84 15 125/66 95 09/04/22 09:16 98 F 85 18 172/78 Intake and Output 09/03/22 09/04/22 09/04/22 22:59 06:59 14:59 Other: Weight 85.275 kg - Constitutional General appearance: no acute distress - Respiratory Respiratory: bilateral: CTA - Cardiovascular Rhythm: regular Heart sounds: normal: S1, S2 Abnormal Heart Sounds: systolic murmur Results 09/04/22 09:39 09/04/22 09:39 Cardiac Enzymes 09/04/22 09/04/22 09/04/22 Range/Units 09:39 09:39 11:54 AST 65 H (14-36) U/L Troponin I <0.012 <0.012 (0.000-0.034) ng/mL Coagulation 09/04/22 Range/Units 09:39 PT 9.7 (9.0-12.0) sec APTT 19.5 L (22.0-30.0) sec CBC 09/04/22 Range/Units 09:39 WBC 7.0 (3.8-10.6) k/uL RBC 4.37 (3.80-5.40) m/uL Hgb 11.8 (11.4-16.0) gm/dL Hct 36.2 (34.0-46.0) % Plt Count 306 (150-450) k/uL Comprehensive Metabolic Panel 09/04/22 Range/Units 09:39 Sodium 139 (137-145) mmol/L Potassium 4.4 (3.5-5.1) mmol/L Chloride 107 (98-107) mmol/L Carbon Dioxide 23 (22-30) mmol/L BUN 15 (7-17) mg/dL Creatinine 0.75 (0.52-1.04) mg/dL Glucose 131 H (74-99) mg/dL Calcium 9.0 (8.4-10.2) mg/dL AST 65 H (14-36) U/L ALT 44 H (4-34) U/L Alkaline Phosphatase 285 H (38-126) U/L Total Protein 7.3 (6.3-8.2) g/dL Albumin 4.1 (3.5-5.0) g/dL Current Medications Generic Name Dose Route Start Last Admin Trade Name Freq PRN Reason Stop Dose Admin Aspirin 325 mg 09/05/22 09:00 Aspirin 325 Mg Tab PO DAILY AGUSTIN Sodium Chloride 1,000 mls @ 75 mls/hr 09/04/22 09:29 09/04/22 10:42 Saline 0.9% IV 09/04/22 22:48 75 mls/hr .[id number] STA Administration Nitroglycerin 0.4 mg 09/04/22 11:20 Nitroglycerin Sl Tabs 0.4 Mg Tab SUBLINGUAL Q5M PRN Chest Pain Nitroglycerin 1 inch 09/04/22 12:00 09/04/22 11:46 Nitroglycerin Oint 1 Inch/Gm Packet TOPICAL 1 inch Q6HR AGUSTIN Administration Intake and Output 09/03/22 09/04/22 09/04/22 22:59 06:59 14:59 Other: Weight 85.275 kg Patient Weight 09/05/22 06:59 Weight 85.275 kg 09/04/22 09:39 09/04/22 09:39 Assessment and Plan Assessment: Assessment #1 dizziness and lightheadedness/vertigo, positional, likely non-cardiac #2 chest discomfort, atypical #3 coronary artery disease #4 hypertension #5 multiple comorbid conditions Plan #1 rule out acute coronary event. We'll follow-up with the serial cardiac enzymes #2 obtain an echocardiogram with Doppler #3 continue the current medical regimen including dual antiplatelet therapy #4 the pressure was elevated when she presented to the hospital. The following blood pressure measurements came in to be within normal limits. Continue monitoring the pressure and adjust medications if we have to #5 further recommendation to follow
--- NOTE | 2022-09-04 18:53 | P.HPIM ---
History of Present Illness H&P Date: 09/04/22 Chief Complaint: Chest pain 52-year-old female patient with a past medical history significant for coronary artery disease and prior stenting of the RCA was performed in April 2022 as well as hypertension and dyslipidemia. The patient is known to our service and follows with Dr. Edward regularly. She presented to the emergency department complaining of dizziness and lightheadedness. She was in her usual state of health until this morning when she workup complaining of dizziness and lightheadedness related to certain position of her head. She describes the di zziness as a spinning. No associated symptoms of presyncope or syncope and no heart racing or fluttering and no nausea or vomiting. But later after that she started experiencing discomfort in the chest. She describes the discomfort as a pressure/dull kind of discomfort in the middle of the chest with no radiation and no associated symptoms reach she states that the discomfort is clearly different from what she had when she underwent stenting of the right coronary artery. The last heart catheterization was performed in April 2022 when she underwent stenting of the RCA and was found to have [id number] disease involving the left coronary system which has been treated medically. She underwent a workup during this admission including an EKG showing sinus rhythm with no significant ST or T-wave abnormalities and first set of cardiac enzymes came in to be unremarkable. Chest x-ray did not show any acute abnormalities. Review of Systems REVIEW OF SYSTEMS: CONSTITUTIONAL: No fever, no malaise, no fatigue. HEENT: No recent visual problems or hearing problems. Denied any sore throat. CARDIOVASCULAR: No chest pain, orthopnea, PND, no palpitations, no syncope. PULMONARY: No shortness of breath, no cough, no hemoptysis. GASTROINTESTINAL: No diarrhea, no nausea, no vomiting, no abdominal pain. NEUROLOGICAL: No headaches, no weakness, no numbness. HEMATOLOGICAL: Denies any bleeding or petechiae. GENITOURINARY: Denies any burning micturition, frequency, or urgency. MUSCULOSKELETAL/RHEUMATOLOGICAL: Denies any joint pain, swelling, or any muscle pain. ENDOCRINE: Denies any polyuria or polydipsia. The rest of the 14-point review of systems is negative. Past Medical History Past Medical History: Chest Pain / Angina, GI Bleed, Hyperlipidemia, Osteoarthritis (OA), Thyroid Disorder Additional Past Medical History / Comment(s): See Dr Edward's H&P. Chest pain going on 2 yrs, progressively worsening. Plantar Fasciitis. Colitis. Thyroid nodule. Broke neck 3 yrs ago after falling down stairs - " Have a couple of cracks in my neck." Migraines. History of Any Multi-Drug Resistant Organisms: None Reported Past Surgical History: Section, Orthopedic Surgery Additional Past Surgical History / Comment(s): Left arm surgery. Dental work. Past Anesthesia/Blood Transfusion Reactions: No Reported Reaction Additional Past Anesthesia/Blood Transfusion Reaction / Comment(s): Mom PONV. Past Psychological History: Depression Smoking Status: Current some day smoker Past Alcohol Use History: Rare Past Drug Use History: None Reported - Past Family History Mother Family Medical History: AICD/Pacemaker, Cancer Additional Family Medical History / Comment(s): Uterine cancer. Medications and Allergies Home Medications Medication Instructions Recorded Confirmed Type Aspirin [Adult Low Dose Aspirin EC] 81 mg PO DAILY 05/06/22 09/04/22 History Escitalopram [Lexapro] 10 mg PO HS 05/06/22 09/04/22 History Ibuprofen [Motrin] 600 mg PO TID PRN 05/06/22 09/04/22 History Meloxicam [Mobic] 15 mg PO DAILY 05/06/22 09/04/22 History Mesalamine 4.8 gm PO DAILY 05/06/22 09/04/22 History Metoprolol Succinate [Metoprolol 25 mg PO DAILY 05/06/22 09/04/22 History Succinate ER] Nitroglycerin Sl Tabs [Nitrostat] 0.4 mg SL Q5M PRN 05/06/22 09/04/22 History Omeprazole [PriLOSEC] 20 mg PO DAILY 05/06/22 09/04/22 History Rimegepant Sulfate [Nurtec Odt] 75 mg PO BID PRN 05/06/22 09/04/22 History tiZANidine [Zanaflex] 4 mg PO HS 05/06/22 09/04/22 History Atorvastatin [Lipitor] 80 mg PO HS #90 tab 05/10/22 09/04/22 Rx Ticagrelor [Brilinta] 90 mg PO BID #60 tab 05/10/22 09/04/22 Rx Allergies Allergy/AdvReac Type Severity Reaction Status Date / Time wool Allergy Rash/Hives Verified 09/04/22 13:32 Physical Exam Vitals: Vital Signs Temp Pulse Resp BP Pulse Ox 09/04/22 12:00 84 15 125/66 95 09/04/22 09:16 98 F 85 18 172/78 Intake and Output 09/03/22 09/04/22 09/04/22 22:59 06:59 14:59 Other: Weight 85.275 kg PHYSICAL EXAMINATION: GENERAL: The patient is alert and oriented x3, not in any acute distress. Well developed, well nourished. HEENT: Pupils are round and equally reacting to light. EOMI. No scleral icterus. No conjunctival pallor. Normocephalic, atraumatic. No pharyngeal erythema. No thyromegaly. CARDIOVASCULAR: S1 and S2 present. No murmurs, rubs, or gallops. PULMONARY: Chest is clear to auscultation, no wheezing or crackles. ABDOMEN: Soft, nontender, nondistended, normoactive bowel sounds. No palpable organomegaly. MUSCULOSKELETAL: No joint swelling or deformity. EXTREMITIES: No cyanosis, clubbing, or pedal edema. NEUROLOGICAL: Gross neurological examination did not reveal any focal deficits. SKIN: No rashes. Results CBC & Chem 7: 09/04/22 09:39 09/04/22 09:39 Labs: Abnormal Lab Results - Last 24 Hours (Table) 09/04/22 09/04/22 09/04/22 Range/Units 09:39 09:39 09:39 Lymphocytes # 0.9 L (1.0-4.8) k/uL APTT 19.5 L (22.0-30.0) sec Glucose 131 H (74-99) mg/dL AST 65 H (14-36) U/L ALT 44 H (4-34) U/L Alkaline Phosphatase 285 H (38-126) U/L Assessment and Plan Assessment: 1. Chest pain rule out acute coronary syndrome - Monitor EKG and trend troponin; recommend obtaining 2-D echo - Patient will continue with dual antiplatelet therapy with aspirin and fell into - Cardiology is consulted for further recommendations 2. Dizziness/right maxillary sinusitis; CT of the head is negative for any acute bleed or mass; does show acute maxillary sinusitis - We will add Antivert 25 mg every 6 hours when necessary; Augmentin 875 mg twice a day for sinusitis 3. Transaminitis; AST/ALT elevated at 65/44; likely related to statin use; monitor renal enzymes closely 4. Coronary artery disease; patient is status post stent placement to RCA in April 2022; remains on aspirin and related to 90 mg twice a day 5. Hyperlipidemia; Lipitor 80 mg by mouth daily at bedtime 6. Hypertension; blood 25 mg daily 7. Depression; Lexapro 10 mg by mouth daily at bedtime
[2022-09-04] MEDS ORDERED: NON FORMULARY DRUG (Rimegepant Sulfate [Nurtec Odt] 75 MG Tablet) PO PRN (18:56)
[2022-09-04] MEDS: TICAGRELOR 90 MG TAB PO SCH (20:14)
[2022-09-04] MEDS: ESCITALOPRAM 10 MG TAB PO SCH (20:14)
[2022-09-04] MEDS: ATORVASTATIN 80 MG TAB PO SCH (20:14)
[2022-09-04] MEDS: MECLIZINE 25 MG TAB PO PRN (20:14)
[2022-09-04] MEDS: tiZANidine 4 MG TAB PO SCH (20:14)
[2022-09-05] MEDS: NITROGLYCERIN OINT 1 INCH/GM PACKET TOPICAL SCH ×4 (05:05→23:44)
[2022-09-05] MEDS: PANTOPRAZOLE 40 MG TABLET PO SCH (06:36)
[2022-09-05] MEDS: ASPIRIN 81 MG PO SCH (08:33)
[2022-09-05] MEDS: MECLIZINE 25 MG TAB PO PRN (08:34)
[2022-09-05] MEDS: METOPROLOL SUCCINATE (ER) 25 MG TAB.ER.24H PO SCH (08:34)
[2022-09-05] MEDS: BALSALAZIDE DISODIUM 750 MG CAPSULE PO SCH ×3 (08:34→20:27)
[2022-09-05] MEDS: TICAGRELOR 90 MG TAB PO SCH ×2 (08:34→20:27)
[2022-09-05 08:50] LABS: Basophils # (A) 0.05 X 10*3/uL (0.00-0.10); Basophils % (A) 0.6 %; Eosinophils % (A) 3.6 %; HCT 34.8 % (37.2-46.3); HGB 10.3 g/dL (12.0-15.0); Immature Grans, Automated 0.2 %; Lymphocytes # (A) 2.03 X 10*3/uL (0.90-5.00); Lymphocytes % (A) 24.2 %; MCH 25.9 pg (27.0-32.0); MCHC 29.6 g/dL (32.0-37.0); MCV 87.4 fL (80.0-97.0); Mean Platelet Volume 9.5 fL (9.5-12.2); Monocytes # (A) 0.87 X 10*3/uL (0.20-1.00); Monocytes % (A) 10.4 %; NRBC Per 100 WBC 0 /100 WBCS (0.0-0.0); Neutrophils # (A) 5.12 X 10*3/uL (1.80-7.70); Platelet Count 330 X 10*3/uL (140-440); RBC 3.98 X 10*6/uL (4.10-5.20); RDW 13.7 % (11.5-14.5); WBC 8.39 X 10*3/uL (4.50-10.00)
[2022-09-05] MEDS ORDERED: ASPIRIN 325 MG TAB PO SCH (09:00)
[2022-09-05 09:02] LABS: African American GFR (CKD) 115.5 (60.0-200.0); BUN/Creat Ratio 18.14 Ratio (12.00-20.00); Blood Urea Nitrogen 12.7 mg/dL (9.0-27.0); Calcium 8.6 mg/dL (8.7-10.3); Carbon Dioxide 23.1 mmol/L (20.0-27.5); Chloride 106 mmol/L (96-109); Chol/HDL Ratio 3.23 Ratio; Glucose 108 mg/dL (70-110); LDL Cholesterol,Calculated 80.3 mg/dL (0.0-131.0); Non-African American GFR(CKD) 99.6 (60.0-200.0); Potassium 4.3 mmol/L (3.5-5.5); Sodium 137 mmol/L (135-145); VLDL Calculation 19.12 mg/dL (5.00-40.00)
--- NOTE | 2022-09-05 09:58 | P.PN ---
Subjective Progress Note Date: 09/05/22 History of present illness: This is a 52-year-old female patient with a past medical history significant for coronary artery disease and prior stenting of the RCA was performed in April 2022 as well as hypertension and dyslipidemia. The patient is known to our service and follows with Dr. Edward regularly. She presented to the emergency department complaining of dizziness and lightheadedness. She was in her usual state of health until this morning when she workup complaining of dizziness and lightheadedness related to certain position of her head. She describes the dizziness as a spinning. No associated symptoms of presyncope or syncope and no heart racing or fluttering and no nausea or vomiting. But later after that she started experiencing discomfort in the chest. She describes the discomfort as a pressure/dull kind of discomfort in the middle of the chest with no radiation and no associated symptoms reach she states that the discomfort is clearly different from what she had when she underwent stenting of the right coronary artery. The last heart catheterization was performed in April 2022 when she underwent stenting of the RCA and was found to have [id number] disease involving the left coronary system which has been treated medically. She underwent a workup during this admission including an EKG showing sinus rhythm with no significant ST or T-wave abnormalities and first set of cardiac enzymes came in to be unremarkable. Chest x-ray did not show any acute abnormalities. The rest of the blood work has been unremarkable. Currently the patient is not experiencing any chest pain or chest discomfort but she continues to have dizziness and lightheadedness with turning her head to the left sides. 09/05 The patient continues to complain of dizziness but no chest pain.patient has been started on Antivert. Echocardiogram is pending. Blood pressure 143/82, heart rate in the 80s, pulse ox 95% on room air. Repeat blood work reveals hemoglobin of 10.3. Potassium 4.3, BUN 12 and creatinine 0.7. Triglycerides 95, cholesterol 144, LDL 80, HDL 44. Troponins negative 3. Physical examination: Gen: This is a 50-year-old female. She is resting in bed appears to be comfortable and in no acute distress. VS: reviewed HEENT: Head is atraumatic, normocephalic. Pupils equal, round. Sclerae is anicteric. NECK: Supple. No JVD. LUNGS: Clear to auscultation. No wheezes or rhonchi. No intercostal retractions. HEART: Regular rate and rhythm. Systolic murmur. ABDOMEN: Soft. No tenderness. EXTREMITIES: No pedal edema. NEUROLOGICAL: Patient is awake, alert and oriented x3. Assessment: dizziness and lightheadedness/vertigo, positional, likely non-cardiac chest discomfort, atypical coronary artery disease hypertension multiple comorbid conditions Plan: ruled out acute coronary event. obtain an echocardiogram with Doppler continue the current medical regimen including dual antiplatelet therapy Monitor blood pressure closely and make changes to her medication regime as appropriate If echocardiogram is within normal limits, patient may be cleared for discharge home. Nurse practitioner note has been reviewed, I agree with documented findings and plan of care. Patient was seen and examined. Objective - Vital Signs Vital signs: Vital Signs Temp 98 F 09/05/22 07:00 Pulse 87 09/05/22 07:00 Resp 16 09/05/22 07:00 BP 143/82 09/05/22 07:00 Pulse Ox 94 L 09/05/22 07:03 FiO2 Intake & Output 09/04/22 09/05/22 09/05/22 18:59 06:59 18:59 Weight 85.275 kg Other: Voiding Method Toilet # Voids 1 2 - Labs CBC & Chem 7: 09/05/22 05:55 09/05/22 05:55 Labs: Abnormal Lab Results - Last 24 Hours (Table) 09/04/22 09/04/22 09/04/22 Range/Units 09:39 09:39 09:39 RBC (4.10-5.20) X 10*6/uL Hgb (12.0-15.0) g/dL Hct (37.2-46.3) % MCH (27.0-32.0) pg MCHC (32.0-37.0) g/dL Lymphocytes # 0.9 L (1.0-4.8) k/uL APTT 19.5 L (22.0-30.0) sec Anion Gap (10.00-18.00) mmol/L Glucose 131 H (74-99) mg/dL Calcium (8.7-10.3) mg/dL AST 65 H (14-36) U/L ALT 44 H (4-34) U/L Alkaline Phosphatase 285 H (38-126) U/L 09/05/22 09/05/22 Range/Units 05:55 05:55 RBC 3.98 L (4.10-5.20) X 10*6/uL Hgb 10.3 L (12.0-15.0) g/dL Hct 34.8 L (37.2-46.3) % MCH 25.9 L (27.0-32.0) pg MCHC 29.6 L (32.0-37.0) g/dL Lymphocytes # (1.0-4.8) k/uL APTT (22.0-30.0) sec Anion Gap 7.90 L (10.00-18.00) mmol/L Glucose (74-99) mg/dL Calcium 8.6 L (8.7-10.3) mg/dL AST (14-36) U/L ALT (4-34) U/L Alkaline Phosphatase (38-126) U/L
[2022-09-05] MEDS ORDERED: BUTALB/APAP/CAFF 50-325-40MG TAB PO PRN (10:18)
[2022-09-05] MEDS ORDERED: BUTALB/APAP/CAFF 50-325-40MG TAB PO STA (10:18)
--- NOTE | 2022-09-05 11:06 | CA ---
Transthoracic Echo Report Name: Rama Ramires Age: 52 Gender: F : 1970 Exam Date: 09/05/2022 08:56 Exam Location: [facility] Ht (in): 62 Wt (lb): 186 Ordering Physician: Andre Gómez MD ([id number]) Attending/Referring Phys: Check Viewer Kae Sharp RDCS Procedure CPT: Indications: Chest Pain Cardiac Hx: Technical Quality: Contrast 1: Total Dose (mL): Contrast 2: Total Dose (mL): MEASUREMENTS (Male / Female) Normal Values 2D ECHO LV Diastolic Diameter PLAX 3.7 cm 4.2 - 5.9 / 3.9 - 5.3 cm LV Systolic Diameter PLAX 3.6 cm IVS Diastolic Thickness 1.2 cm 0.6 - 1.0 / 0.6 - 0.9 cm LVPW Diastolic Thickness 1.4 cm 0.6 - 1.0 / 0.6 - 0.9 cm LV Relative Wall Thickness 0.7 RV Internal Dim ED PLAX 2.8 cm LA Systolic Diameter LX 3.1 cm 3.0 - 4.0 / 2.7 - 3.8 cm LV Diastolic Volume MOD BP 64.2 cm??? 67 - 155 / 56 - 104 cm??? LV Systolic Volume MOD BP 23.5 cm??? 22 - 58 / 19 - 49 cm??? LV Ejection Fraction MOD BP 63.4 % >= 55 % LV Diastolic Volume MOD 4C 56.5 cm??? LV Systolic Volume MOD 4C 18.9 cm??? LV Ejection Fraction MOD 4C 66.6 % LV Diastolic Length 4C 7.4 cm LV Systolic Length 4C 6.4 cm LV Diastolic Volume MOD 2C 73.0 cm??? LV Systolic Volume MOD 2C 27.2 cm??? LV Ejection Fraction MOD 2C 62.8 % LV Diastolic Length 2C 7.4 cm LV Systolic Length 2C 5.9 cm LA Volume 45.6 cm??? 18 - 58 / 22 - 52 cm??? M-MODE Aortic Root Diameter MM 2.6 cm LA Systolic Diameter MM 3.9 cm LA Ao Ratio MM 1.5 MV E Point Septal Separation 0.5 cm AV Cusp Separation MM 2.1 cm DOPPLER MV E' Velocity 6.5 cm/s TR Peak Velocity 243.3 cm/s TR Peak Gradient 23.7 mmHg Right Ventricular Systolic Press 28.0 mmHg FINDINGS Left Ventricle Mildly increased septal wall thicknes left ventricular cavity size normal. Left ventricular ejection fraction is estimated at 60 %. Right Ventricle Normal right ventricular size and function. Right ventricular systolic pressure within normal limits. Right Atrium Normal right atrial size. Left Atrium Normal left atrial size. Mitral Valve Structurally normal mitral valve. Mild mitral regurgitation. Aortic Valve Trileaflet aortic valve. Tricuspid Valve Structurally normal tricuspid valve. Mild tricuspid regurgitation. Pulmonic Valve Pulmonic valve not well visualized. Pericardium Echo free space anterior to the right ventricle likely represents a fat pad. Aorta Normal size aortic root and proximal ascending aorta. CONCLUSIONS Normal LV systolic function Mild mitral and tricuspid regurgitation Previewed by: Dr. Higinio Garcia MD (Electronically Signed) Final Date: 05 September 2022 11:05
[2022-09-05] MEDS: LORATADINE 10 MG TAB PO SCH (11:44)
--- NOTE | 2022-09-05 13:02 | P.PN ---
Subjective 52-year-old female patient with a past medical history significant for coronary artery disease and prior stenting of the RCA was performed in April 2022 as well as hypertension and dyslipidemia. The patient is known to our service and follows with Dr. Edward regularly. She presented to the emergency department complaining of dizziness and lightheadedness. She was in her usual state of health until this morning when she workup complaining of dizziness and lightheadedness related to certain position of her head. She describes the dizz iness as a spinning. No associated symptoms of presyncope or syncope and no heart racing or fluttering and no nausea or vomiting. But later after that she started experiencing discomfort in the chest. She describes the discomfort as a pressure/dull kind of discomfort in the middle of the chest with no radiation and no associated symptoms reach she states that the discomfort is clearly different from what she had when she underwent stenting of the right coronary artery. The last heart catheterization was performed in April 2022 when she underwent stenting of the RCA and was found to have [id number] disease involving the left coronary system which has been treated medically. She underwent a workup during this admission including an EKG showing sinus rhythm with no significant ST or T-wave abnormalities and first set of cardiac enzymes came in to be unremarkable. Chest x-ray did not show any acute abnormalities. 09/05/2022 This is a pleasant 52 years old female from community who presents initially because of chest pain and dizziness. Currently patient states that her chest pain has improved but she still complains from dizziness although he feels better than when she came syndrome. Her Dizziness As the Room Spinning Especially When She Turns Her Head to the Left Side. She Is Complaining of from the Mild Swelling or Congestion in Her Right Cheek and Mild Right Headache, but no sneezing. No abdominal pain or right upper quadrant pain or tenderness. No weakness or numbness. Patient states that she has history of migraine. No vomiting diarrhea or urinary symptoms. Vitals stable. Hemoglobin 11.8 and 10.3, LFTs mildly elevated. Ejection fraction 60%. Objective - Vital Signs Vital signs: Vital Signs Temp 98 F 09/05/22 07:00 Pulse 87 09/05/22 07:00 Resp 16 09/05/22 07:00 BP 143/82 09/05/22 07:00 Pulse Ox 94 L 09/05/22 07:03 FiO2 Intake & Output 09/04/22 09/05/22 09/05/22 18:59 06:59 18:59 Intake Total 118 Balance 118 Weight 85.275 kg Intake: Oral 118 Other: Voiding Method Toilet # Voids 1 2 - Exam GENERAL: The patient is alert and oriented x3, not in any acute distress. Well developed, well nourished. HEENT: Pupils are round and equally reacting to light. EOMI. No scleral icterus. No conjunctival pallor. Normocephalic, atraumatic. No pharyngeal erythema. No thyromegaly. CARDIOVASCULAR: S1 and S2 present. No murmurs, rubs, or gallops. PULMONARY: Chest is clear to auscultation, no wheezing or crackles. ABDOMEN: Soft, nontender, nondistended, normoactive bowel sounds. No palpable organomegaly. MUSCULOSKELETAL: No joint swelling or deformity. EXTREMITIES: No cyanosis, clubbing, or pedal edema. NEUROLOGICAL: Gross neurological examination did not reveal any focal deficits. SKIN: No rashes. no petechiae. - Labs CBC & Chem 7: 09/05/22 05:55 09/05/22 05:55 Labs: Abnormal Lab Results - Last 24 Hours (Table) 09/05/22 09/05/22 Range/Units 05:55 05:55 RBC 3.98 L (4.10-5.20) X 10*6/uL Hgb 10.3 L (12.0-15.0) g/dL Hct 34.8 L (37.2-46.3) % MCH 25.9 L (27.0-32.0) pg MCHC 29.6 L (32.0-37.0) g/dL Anion Gap 7.90 L (10.00-18.00) mmol/L Calcium 8.6 L (8.7-10.3) mg/dL Assessment and Plan Assessment: 1. Chest pain, resolved - Cardiology is consulted for further recommendations, counter maker recommended if echocardiogram is normal then they cleared her for discharge 2. Dizziness/right maxillary sinusitis; CT of the head is negative for any acute bleed or mass; does show acute maxillary sinusitis - We will add Antivert 25 mg every 6 hours when necessary; and loratadine a day for sinusitis - Consult neurology service for vertigo 3. Transaminitis; AST/ALT elevated at 65/44; monitor renal enzymes closely 4. Coronary artery disease; patient is status post stent placement to RCA in April 2022; remains on aspirin and related to 90 mg twice a day 5. Hyperlipidemia; Lipitor 80 mg by mouth daily at bedtime 6. Hypertension; blood 25 mg daily 7. Depression; Lexapro 10 mg by mouth daily at bedtime
--- NOTE | 2022-09-05 14:43 | P.CNNES ---
History of Present Illness Consult date: 09/05/22 Requesting physician: Waylon Thompson Reason for Consult: Vertigo History of Present Illness: Patient is a 52-year-old right-handed female, with history of CAD, came to the hospital yesterday at 9:15 AM for acute onset of vertigo. Patient states that she usually sleeps on her stomach. Yesterday morning she woke up at 7:30 to 8 AM, and she lifted her head to look at the watch, and everything started spinning. She felt like she was in a runcl-dv-yoddz. She sat on the edge of the bed and the vertigo persisted. Her chest was hurting. She called her sister and her daughter, and they brought her to the hospital. She was having nausea, vomiting. The vertigo was worse, when she was switching one side to another, particularly rolling over to the left side. Patient denies any sinus congestion, although when she gets up in the morning, she has to blow up her nose, as she feels left side of the nose is full. Then she rest of the day she is fine. Patient admits to having slight headache. Patient denies any hearing loss, or tinnitus. The vertigo is worse, when she rolls over to the left, but not as bad when she rolls to the right. Vital signs on arrival blood pressure 172/78, which came down to 125/66, pulse rate 85 temperature 98.0. Blood test shows normal CBC, PT/PTT all normal Chem- 7. AST is 65 and ALT mildly elevated 44. Troponins are negative. Cholesterol 144, LDL 80, HDL 44 and triglycerides 95. EKG shows sinus rhythm CT head showed no acute bleed or mass effect. Acute right maxillary sinusitis. I personally reviewed CT head, agree with the findings. Evidence of an acute right maxillary sinusitis with air-fluid level. This maxillary sinusitis was not present in the CT head from 12/30/2018. Also evidence of old small hypodensity in the left external capsule, but was also present in CT head from 12/30/2018. 2-D echo revealed normal left ventricular systolic function. Mild mitral and tricuspid regurgitation. EF is 60%. Left atrial size is normal. Patient's home medications include Lexapro 10 mg, Zanaflex 4 mg, aspirin 81 mg, omeprazole 20 mg, Nurtec ODT 75 mg twice a day when necessary, metoprolol, mesalamine, meloxicam,Brilinta 90 mg twice a day and Lipitor 80 mg at bedtime. Patient has history of CAD, status post stenting on 05/09/2022. She smokes 1-6 cigarettes per day only when she is driving. Never been a heavy smoker. Patient has history of migraines. Review of Systems Constitutional: Denies chills, Denies fever Eyes: denies blurred vision, denies pain Ears: deny: decreased hearing, ear discharge, earache, tinnitus Ears, nose, mouth and throat: Reports headache, Denies sore throat Cardiovascular: Reports chest pain, Denies shortness of breath Respiratory: Denies cough Gastrointestinal: Reports nausea, Reports vomiting Genitourinary: Denies dysuria, Denies hematuria Musculoskeletal: Denies myalgias Integumentary: Denies pruritus, Denies rash Neurological: Reports as per HPI, Denies ataxia, Denies double vision, Denies numbness, Denies weakness Psychiatric: Denies anxiety, Denies depression Past Medical History Past Medical History: Chest Pain / Angina, GI Bleed, Hyperlipidemia, Osteo arthritis (OA), Thyroid Disorder Additional Past Medical History / Comment(s): See Dr Edward's H&P. Chest pain going on 2 yrs, progressively worsening. Plantar Fasciitis. Colitis. Thyroid nodule. Broke neck 3 yrs ago after falling down stairs - " Have a couple of cracks in my neck." Migraines. History of Any Multi-Drug Resistant Organisms: None Reported Past Surgical History: Section, Orthopedic Surgery Additional Past Surgical History / Comment(s): Left arm surgery. Dental work. Past Anesthesia/Blood Transfusion Reactions: No Reported Reaction Additional Past Anesthesia/Blood Transfusion Reaction / Comment(s): Mom PONV. Date of Last Stent Placement:: 05/09/2022 Past Psychological History: Depression Smoking Status: Current some day smoker Past Alcohol Use History: Rare Past Drug Use History: None Reported - Past Family History Mother Family Medical History: AICD/Pacemaker, Cancer Additional Family Medical History / Comment(s): Uterine cancer. Medications and Allergies Home Medications Medication Instructions Recorded Confirmed Type Aspirin [Adult Low Dose Aspirin EC] 81 mg PO DAILY 05/06/22 09/04/22 History Escitalopram [Lexapro] 10 mg PO HS 05/06/22 09/04/22 History Ibuprofen [Motrin] 600 mg PO TID PRN 05/06/22 09/04/22 History Meloxicam [Mobic] 15 mg PO DAILY 05/06/22 09/04/22 History Mesalamine 4.8 gm PO DAILY 05/06/22 09/04/22 History Metoprolol Succinate [Metoprolol 25 mg PO DAILY 05/06/22 09/04/22 History Succinate ER] Nitroglycerin Sl Tabs [Nitrostat] 0.4 mg SL Q5M PRN 05/06/22 09/04/22 History Omeprazole [PriLOSEC] 20 mg PO DAILY 05/06/22 09/04/22 History Rimegepant Sulfate [Nurtec Odt] 75 mg PO BID PRN 05/06/22 09/04/22 History tiZANidine [Zanaflex] 4 mg PO HS 05/06/22 09/04/22 History Atorvastatin [Lipitor] 80 mg PO HS #90 tab 05/10/22 09/04/22 Rx Ticagrelor [Brilinta] 90 mg PO BID #60 tab 05/10/22 09/04/22 Rx Allergies Allergy/AdvReac Type Severity Reaction Status Date / Time wool Allergy Rash/Hives Verified 09/04/22 13:32 Physical Examination - Vital Signs Vital Signs: Vital Signs Temp Pulse Pulse Resp BP BP Pulse Ox 09/05/22 07:03 94 L 09/05/22 07:00 98 F 87 16 143/82 95 09/05/22 04:17 98.1 F 75 16 124/74 94 L 09/04/22 20:08 98.0 F 83 16 127/66 93 L 09/04/22 17:51 98.4 F 80 16 135/77 95 09/04/22 13:26 98.1 F 85 16 142/76 95 09/04/22 13:10 84 15 126/66 99 Intake and Output 09/04/22 09/05/22 09/05/22 22:59 06:59 14:59 Intake Total 118 Balance 118 Intake: Oral 118 Other: Voiding Method Toilet # Voids 1 2 Patient is a middle aged female, in no acute distress. Patient is alert, awake oriented to time place and person. Speech and language functions are normal. Patient can name and repeat very well. No aphasia or dysarthria. Attention, concentration and fund of knowledge is adequate. On cranial nerve examination, pupils are equal, round and reacting to light, visual riojas are full on confrontation, with no neglect on double simultaneous stimulation. Extraocular muscles are intact with no nystagmus. Face is symmetric, tongue protrudes to the midline. Palatal elevation and sensation normal, hearing is normal for finger rubbing bilaterally and shoulder shrug normal, facial sensation normal. On muscle strength testing, there is no pronator drift and the strength is normal in arms and legs distally and proximally. Deep tendon reflexes are symmetric 2 in the upper and lower limbs and plantars are questionably up bilaterally. Sensory to touch is equal with no neglect on double simultaneous stimulation. Cerebellar function showed no ataxia for [id number] testing. No dysdiadochokinesia. No ataxia for yrdc-tp-[id number] testing on either side. Tone and bulk of muscles normal. Gait deferred.. On general examination, there is no carotid bruit or murmur, S1-S2 audible. Chest is clear on consultation. Abdomen is soft nontender. No organomegaly, bowel sounds present. Peripheral pulses are present. No edema. Results - Laboratory Findings CBC and BMP: 09/05/22 05:55 09/05/22 05:55 Abnormal Lab Findings: Abnormal Labs 09/04/22 09/04/22 09/04/22 09:39 09:39 09:39 RBC Hgb Hct MCH MCHC Lymphocytes # 0.9 L APTT 19.5 L Anion Gap Glucose 131 H Calcium AST 65 H ALT 44 H Alkaline Phosphatase 285 H 09/05/22 09/05/22 05:55 05:55 RBC 3.98 L Hgb 10.3 L Hct 34.8 L MCH 25.9 L MCHC 29.6 L Lymphocytes # APTT Anion Gap 7.90 L Glucose Calcium 8.6 L AST ALT Alkaline Phosphatase Assessment and Plan Assessment: * Acute onset of vertigo, probably due to peripheral vestibular dysfunction. * Acute right maxillary sinusitis with evidence of air-fluid level. * Coronary artery disease * Hyperlipidemia * Light smoker Plan: * Patient has acute right maxillary sinusitis. Patient probably has peripheral vestibular dysfunction leading to vertigo. * Patient will be started on Augmentin 1 tablet twice a day for 7-10 days. * Meclizine as needed. * B12, folate. * Carotid Doppler. * Continue dual antiplatelet medication and high-dose statins as per cardiology. * Recommended tobacco cessation. * Neurology will follow. Thank you for the consult.
--- NOTE | 2022-09-05 15:18 | US ---
EXAMINATION TYPE: US carotid duplex BILAT DATE OF EXAM: 09/05/2022 COMPARISON: NONE CLINICAL HISTORY: vertigo. No HTN per patient. TECHNIQUE: Carotid duplex ultrasound examination. Indirect Doppler criteria was utilized. FINDINGS: EXAM MEASUREMENTS: RIGHT: Peak Systolic Velocity (PSV) cm/sec ----- Right CCA: 117.0 ----- Right ICA: 128.0 ----- Right ECA: 282.0 ICA/CCA ratio: 1.1 RIGHT: End Diastole cm/sec ----- Right CCA: 22.1 ----- Right ICA: 16.4 ----- Right ECA: 10.1 LEFT: Peak Systolic Velocity (PSV) cm/sec ----- Left CCA: 128.0 ----- Left ICA: 147.0 ----- Left ECA: 131.0 ICA/CCA ratio: 1.2 LEFT: End Diastole cm/sec ----- Left CCA: 23.0 ----- Left ICA: 25.3 ----- Left ECA: 6.1 VERTEBRALS (direction of flow): Right Vertebral: Antegrade Left Vertebral: Antegrade Rhythm: Normal VAULT MAKER NOTES: Bilateral wall thickening. No significant stenosis. Plaque in right bulb. [place] abril right ECA and left mid ICA velocity. Focal moderate eccentric plaque right carotid bulb. Elevated peak systolic velocities bilateral commo n and internal carotid arteries. No abnormal ratio or elevated end-diastolic velocities. IMPRESSION: Suspect underlying uncontrolled hypertension. Correlate clinically. No hemodynamically s ignificant stenosis in either internal carotid artery identified. Criteria for Assigning % of Stenosis / Diameter reduction (Estimation based on the indirect measurements of the internal carotid artery velocities (ICA PSV). 1. Normal (no stenosis)=ICA PSV < 125 cm/s: ratio < 2.0: ICA EDV<40 cm/s. 2. Less than 50% stenosis=ICA PSV < 125 cm/s: ratio < 2.0: ICA EDV<40 cm/s. 3. 50 to 69% stenosis=ICA PSV of 125 to 230 cm/s: ration 2.0 ? 4.0: ICA EDV 40-100 cm/s. 4. Greater than 70% stenosis to near occlusion= ICA PSV > 230 cm/s: ratio > 4.0: ICA EDV > 100 cm/s. 5. Near occlusion= ICA PSV velocities may be low or undetectable: variable ratio and ICA EDV. 6. Total occlusion=unable to detect flow.
[2022-09-05] MEDS: AMOXIC-POT CLAV 875-125MG 1 EACH TAB PO SCH ×2 (15:47→22:05)
[2022-09-05] MEDS: ATORVASTATIN 80 MG TAB PO SCH (20:27)
[2022-09-05] MEDS: ESCITALOPRAM 10 MG TAB PO SCH (20:27)
[2022-09-05] MEDS: tiZANidine 4 MG TAB PO SCH (20:27)
[2022-09-06 04:15] VITALS: RESP 17
[2022-09-06] MEDS: NITROGLYCERIN OINT 1 INCH/GM PACKET TOPICAL SCH ×2 (05:02→11:26)
[2022-09-06] MEDS: PANTOPRAZOLE 40 MG TABLET PO SCH (06:20)
[2022-09-06 08:09] VITALS: BP 150/72; PULSE 73; TEMP 98
[2022-09-06] MEDS: AMOXIC-POT CLAV 875-125MG 1 EACH TAB PO SCH (08:27)
[2022-09-06] MEDS: LORATADINE 10 MG TAB PO SCH (08:28)
[2022-09-06] MEDS: TICAGRELOR 90 MG TAB PO SCH (08:28)
[2022-09-06] MEDS: BALSALAZIDE DISODIUM 750 MG CAPSULE PO SCH (08:28)
[2022-09-06] MEDS: METOPROLOL SUCCINATE (ER) 25 MG TAB.ER.24H PO SCH (08:28)
[2022-09-06] MEDS: ASPIRIN 81 MG PO SCH (08:28)
[2022-09-06 10:18] LABS: Basophils # (A) 0.06 X 10*3/uL (0.00-0.10); Basophils % (A) 0.8 %; Eosinophils # (A) 0.35 X 10*3/uL (0.04-0.35); Eosinophils % (A) 4.9 %; HCT 34.7 % (37.2-46.3); HGB 10.6 g/dL (12.0-15.0); Immature Grans, Automated 0.3 %; Lymphocytes # (A) 1.22 X 10*3/uL (0.90-5.00); Lymphocytes % (A) 17.2 %; MCH 26.3 pg (27.0-32.0); MCHC 30.5 g/dL (32.0-37.0); MCV 86.1 fL (80.0-97.0); Mean Platelet Volume 9.4 fL (9.5-12.2); Monocytes # (A) 0.67 X 10*3/uL (0.20-1.00); Monocytes % (A) 9.4 %; NRBC Per 100 WBC 0 /100 WBCS (0.0-0.0); Neutrophils # (A) 4.79 X 10*3/uL (1.80-7.70); Neutrophils % (A) 67.4 %; Platelet Count 333 X 10*3/uL (140-440); RBC 4.03 X 10*6/uL (4.10-5.20); RDW 13.6 % (11.5-14.5); WBC 7.11 X 10*3/uL (4.50-10.00)
[2022-09-06] MEDS ORDERED: CYANOCOBALAMIN 1,000 MCG/ML 1 ML VIAL IM ONE (10:36)
[2022-09-06] MEDS ORDERED: FOLIC ACID 1 MG TAB PO SCH (10:45)
[2022-09-06 10:49] LABS: ALT 33 U/L (8-44); AST 48 U/L (13-35); Albumin 3.8 g/dL (3.8-4.9); Albumin/Globulin Ratio 1.52 (1.60-3.17); Alkaline Phosphatase 255 U/L (41-126); Bilirubin, Conjugated <0.20 mg/dL (0.20-0.40); Globulin 2.5 g/dL (1.6-3.3); Total Protein 6.3 g/dL (6.2-8.2)
--- NOTE | 2022-09-06 11:32 | P.PN ---
Subjective Progress Note Date: 09/06/22 History of present illness: This is a 52-year-old female patient with a past medical history significant for coronary artery disease and prior stenting of the RCA was performed in April 2022 as well as hypertension and dyslipidemia. The patient is known to our service and follows with Dr. Edward regularly. She presented to the emergency department complaining of dizziness and lightheadedness. She was in her usual state of health until this morning when she workup complaining of dizziness and lightheadedness related to certain position of her head. She describes the dizziness as a spinning. No associated symptoms of presyncope or syncope and no heart racing or fluttering and no nausea or vomiting. But later after that she started experiencing discomfort in the chest. She describes the discomfort as a pressure/dull kind of discomfort in the middle of the chest with no radiation and no associated symptoms reach she states that the discomfort is clearly different from what she had when she underwent stenting of the right coronary artery. The last heart catheterization was performed in April 2022 when she underwent stenting of the RCA and was found to have thsm-ir-[id number] disease involving the left coronary system which has been treated medically. She underwent a workup during this admission including an EKG showing sinus rhythm with no significant ST or T-wave abnormalities and first set of cardiac enzymes came in to be unremarkable. Chest x-ray did not show any acute abnormalities. The rest of the blood work has been unremarkable. Currently the patient is not experiencing any chest pain or chest discomfort but she continues to have dizziness and lightheadedness with turning her head to the left sides. 09/05 The patient continues to complain of dizziness but no chest pain.patient has been started on Antivert. Echocardiogram is pending. Blood pressure 143/82, heart rate in the 80s, pulse ox 95% on room air. Repeat blood work reveals hemoglobin of 10.3. Potassium 4.3, BUN 12 and creatinine 0.7. Triglycerides 95, cholesterol 144, LDL 80, HDL 44. Troponins negative 3. 09/06 Echocardiogram reveals EF of 60%, mild mitral and tricuspid regurgitation. Patient denies having any chest pain. Her dizziness is improved from yesterday.heart rate in the 70s, blood pressure 150/72, pulse ox 94% on room air. pvc monitor sinus rhythm. Carotid ultrasound revealed suspected underlying hypertension. No hemodynamically significant stenosis in either internal carotid artery. Physical examination: Gen: This is a 50-year-old female. She is resting in bed appears to be comfortable and in no acute distress. VS: reviewed HEENT: Head is atraumatic, normocephalic. Pupils equal, round. Sclerae is anicteric. NECK: Supple. No JVD. LUNGS: Clear to auscultation. No wheezes or rhonchi. No intercostal retractions. HEART: Regular rate and rhythm. Systolic murmur. ABDOMEN: Soft. No tenderness. EXTREMITIES: No pedal edema. NEUROLOGICAL: Patient is awake, alert and oriented x3. Assessment: dizziness and lightheadedness/vertigo, positional, non-cardiac chest discomfort, atypical coronary artery disease hypertension multiple comorbid conditions Plan: ruled out acute coronary event. continue the current medical regimen including dual antiplatelet therapy Patient is cleared for discharge home from cardiology. Nurse practitioner note has been reviewed, I agree with documented findings and plan of care. Patient was seen and examined. Objective - Vital Signs Vital signs: Vital Signs Temp 98.0 F 09/06/22 07:00 Pulse 73 09/06/22 07:00 Resp 17 09/06/22 07:00 BP 150/72 09/06/22 07:00 Pulse Ox 94 L 09/06/22 07:00 FiO2 Intake & Output 09/05/22 09/06/22 09/06/22 18:59 06:59 18:59 Intake Total 118 Balance 118 Intake: Intake, IV Titration 0 Amount Sodium Chloride 0.9% 1, 0 000 ml @ 75 mls/hr IV . [id number] STA Rx#:[id number] Oral 118 Other: Voiding Method Toilet # Voids 2 2 - Labs CBC & Chem 7: 09/06/22 07:10 09/05/22 05:55 Labs: Abnormal Lab Results - Last 24 Hours (Table) 09/06/22 09/06/22 Range/Units 07:10 07:10 RBC 4.03 L (4.10-5.20) X 10*6/uL Hgb 10.6 L (12.0-15.0) g/dL Hct 34.7 L (37.2-46.3) % MCH 26.3 L (27.0-32.0) pg MCHC 30.5 L (32.0-37.0) g/dL MPV 9.4 L (9.5-12.2) fL Conjugated Bilirubin <0.20 L (0.20-0.40) mg/dL AST 48 H (13-35) U/L Alkaline Phosphatase 255 H (41-126) U/L Albumin/Globulin Ratio 1.52 L (1.60-3.17) g/dL
--- NOTE | 2022-09-06 22:28 | P.DS ---
Providers Date of admission: 09/04/22 11:20 Attending physician: Katlyn Goodwin MD Consults: 09/04/22 11:20 Consult Physician Urgent Consulting Provider: Andre Gómez Consult Reason/Comments: cp Do you want consulting provider notified?: Yes 09/05/22 10:17 Consult Physician Routine Consulting Provider: Radha Black Consult Reason/Comments: vertigo Do you want consulting provider notified?: Yes Primary care physician: Vishnu Avelar Hospital Course: Diagnoses: 1. Chest pain, resolved, sample sewer cleared her for discharge 2. Dizziness secondary to right maxillary sinusitis; CT of the head is negative for any acute bleed or mass; does show acute maxillary sinusitis, patient evaluated by neurologist and cleared for discharge 3. Transaminitis; improving 4. Coronary artery disease; patient is status post stent placement to RCA in April 2022; remains on aspirin and related to 90 mg twice a day 5. Hyperlipidemia; 6. Hypertension; 7. Depression; Hospital course 52-year-old female patient with a past medical history significant for coronary artery disease and prior stenting of the RCA was performed in April 2022 as well as hypertension and dyslipidemia. The patient is known to our service and follows with Dr. Ashley regularly. She presented to the emergency department complaining of dizziness and lightheadedness. Transmission Engineer evaluated her for Drew fraction is normal at 60% on echocardiogram and cardiology cleared her for discharge. Also neurologist evaluated patient for vertigo, edges peripheral in etiology, suspected secondary to right maxillary sinusitis. Patient started on loratadine and short course of oral antibiotics of Augmentin. Patient she feels much better and she wants to go home today. She denies any other urinary or GI symptoms. Patient was cleared for discharge by sample sewer and the neurologist. Patient denies any other new symptoms. Problems and management plan were discussed with the patient and he verbalized understanding and acceptance Patient was found stable and can be discharged home in guarded prognosis however he needs follow-up as an outpatient. Patient was instructed to follow up with PCP Dr. Avelar within one week and patient agrees Patient was instructed to follow up with her sample sewer Dr. Ashley in 1-2 weeks and she agrees. She does not have the neurologist dr. Roldan is suggested for her to follow up in 1-2 weeks and she is agreeable to call and make appointment Physical exam Gen: patient is a AAOx3, no distress CVS: S1-S2, RRR, no murmur Lungs: B/L CTA, no wheezing Abdomen: soft, no distention, no tenderness, positive bowel sounds Extremity: no leg edema or induration Time spent more than 35 minutes Patient Condition at Discharge: Good Plan - Discharge Summary Discharge Rx Participant: No New Discharge Prescriptions: New Loratadine [Claritin] 10 mg PO DAILY 15 Days #15 tab Cyanocobalamin [Vitamin B-12] 500 mcg PO DAILY #30 tab Meclizine [Antivert] 25 mg PO QID PRN 5 Days #15 tab PRN Reason: Vertigo Amoxic-Pot Clav 875-125Mg [Augmentin 875-125] 1 each PO Q12HR 7 Days #14 tab Folic Acid 1 mg PO DAILY #30 tab Continue Nitroglycerin Sl Tabs [Nitrostat] 0.4 mg SL Q5M PRN PRN Reason: Chest Pain Escitalopram [Lexapro] 10 mg PO HS tiZANidine [Zanaflex] 4 mg PO HS Aspirin [Adult Low Dose Aspirin EC] 81 mg PO DAILY Ticagrelor [Brilinta] 90 mg PO BID #60 tab Omeprazole [PriLOSEC] 20 mg PO DAILY Rimegepant Sulfate [Nurtec Odt] 75 mg PO BID PRN PRN Reason: Migraine Headache Metoprolol Succinate [Metoprolol Succinate ER] 25 mg PO DAILY Mesalamine 4.8 gm PO DAILY Atorvastatin [Lipitor] 80 mg PO HS #90 tab Discontinued Ibuprofen [Motrin] 600 mg PO TID PRN PRN Reason: Pain Meloxicam [Mobic] 15 mg PO DAILY Discharge Medication List Aspirin [Adult Low Dose Aspirin EC] 81 mg PO DAILY 05/06/22 [History] Escitalopram [Lexapro] 10 mg PO HS 05/06/22 [History] Mesalamine 4.8 gm PO DAILY 05/06/22 [History] Metoprolol Succinate [Metoprolol Succinate ER] 25 mg PO DAILY 05/06/22 [History] Nitroglycerin Sl Tabs [Nitrostat] 0.4 mg SL Q5M PRN 05/06/22 [History] Omeprazole [PriLOSEC] 20 mg PO DAILY 05/06/22 [History] Rimegepant Sulfate [Nurtec Odt] 75 mg PO BID PRN 05/06/22 [History] tiZANidine [Zanaflex] 4 mg PO HS 05/06/22 [History] Atorvastatin [Lipitor] 80 mg PO HS #90 tab 05/10/22 [Rx] Ticagrelor [Brilinta] 90 mg PO BID #60 tab 05/10/22 [Rx] Amoxic-Pot Clav 875-125Mg [Augmentin 875-125] 1 each PO Q12HR 7 Days #14 tab 09/06/22 [Rx] Cyanocobalamin [Vitamin B-12] 500 mcg PO DAILY #30 tab 09/06/22 [Rx] Folic Acid 1 mg PO DAILY #30 tab 09/06/22 [Rx] Loratadine [Claritin] 10 mg PO DAILY 15 Days #15 tab 09/06/22 [Rx] Meclizine [Antivert] 25 mg PO QID PRN 5 Days #15 tab 09/06/22 [Rx] Follow up Appointment(s)/Referral(s): Vishnu Avelar DO [Primary Care Provider] - 1-2 days Samreen Roldan MD [Medical Doctor] - 10 Days (NEUROLOGIST. Please call and make appointment!) Higinio Garcia MD [STAFF PHYSICIAN] - 09/20/22 2:45 pm (with dr ashley ) Patient Instructions/Handouts: Meclizine (By mouth), Loratadine (By mouth), Cyanocobalamin (By injection), Amoxicillin/Clavulanate Potassium (By mouth), Folic Acid (By mouth), Sinusitis (GEN), Dizziness (GEN) Activity/Diet/Wound Care/Special Instructions: Heart healthy diet, low carbohydrate diet 1600 kcal per day activity is restricted until you see your doctor Discharge Disposition: HOME SELF-CARE
[2022-09-07] MEDS ORDERED: CYANOCOBALAMIN 500 MCG TAB PO SCH (09:00)
== END 2022-09-06 13:20 | disposition home or self-care (01) ==
LOC: EC 09:15 → 6NMEDSUR 11:20
PROVIDERS: ADMIT Internal Medicine; ATTEND Internal Medicine
DX: R07.89 Other chest pain (principal); J01.00 Acute maxillary sinusitis, unspecified; R74.01 Elevation of levels of liver transaminase levels; I25.10 Atherosclerotic heart disease of native coronary artery without angina pectoris; E78.5 Hyperlipidemia, unspecified; I10 Essential (primary) hypertension; F32.A Depression, unspecified; G43.909 Migraine, unspecified, not intractable, without status migrainosus; F17.210 Nicotine dependence, cigarettes, uncomplicated; Z95.5 Presence of coronary angioplasty implant and graft; Z79.82 Long term (current) use of aspirin; Z79.1 Long term (current) use of non-steroidal anti-inflammatories (NSAID); Z79.02 Long term (current) use of antithrombotics/antiplatelets; Z79.899 Other long term (current) drug therapy
CPT/HCPCS: 96361 ×3; 96372; 96374; 99285; 36415; 94760; 93005; 93306; 97162; 97165; 80061; 80053; 80048; 80076; 82607; 82746; 83735; 84484; 85025 ×3; 85610; 85730; 71046; 93880; 70450; G0378 ×3; J3420; J2765

== ENCOUNTER → 2023-03-15 | Outpatient (CLI) | payer OTHER ==
[2023-03-15 16:53] LABS: ALT 6 U/L (8-49); AST 11 U/L (13-35); Chol/HDL Ratio 4.96 Ratio; LDL Cholesterol,Calculated 130.9 mg/dL (0.0-131.0)
== END | disposition home or self-care (01) ==
LOC: LABWHC1 11:19
PROVIDERS: ATTEND Internal Medicine
DX: E78.2 Mixed hyperlipidemia (principal)
CPT/HCPCS: 36415; 80061; 84450; 84460

== ENCOUNTER 2023-03-18 16:54 | Inpatient (IN) | payer OTHER ==
--- NOTE | 2023-03-18 17:08 | ED ---
General Adult HPI - General Chief complaint: Abdominal Pain Stated complaint: Abd pain Time Seen by Provider: 03/18/23 17:07 Source: patient Mode of arrival: wheelchair Limitations: no limitations - History of Present Illness Initial comments: Patient presents to the ED with her sister for evaluation. Patient states that she has a history of ulcerative colitis, and she states that she has had "a UC flare" for the past 8-9 days. Patient states that her symptoms have become worse over the past 2 days. Patient reports having symptoms of lower abdominal pain, nausea and bloody bowel movements. Patient states that her bowel movements are always loose. Patient is on Brilinta. Patient denies trauma or injury, fever or chills, headache, chest pain, dyspnea, cough or cold symptoms, palpitations, dizziness, upper abdominal pain, vomiting, dysuria/h ematuria/urinary frequency/urinary symptoms, or any other symptoms or complaints. Patient rates her pain at 4/10 currently. - Related Data Home Medications Medication Instructions Recorded Confirmed Aspirin [Adult Low Dose Aspirin EC] 81 mg PO DAILY 05/06/22 03/14/23 Escitalopram [Lexapro] 10 mg PO HS 05/06/22 03/14/23 Mesalamine 4.8 gm PO DAILY 05/06/22 03/14/23 Metoprolol Succinate [Metoprolol 25 mg PO DAILY 05/06/22 03/14/23 Succinate ER] Nitroglycerin Sl Tabs [Nitrostat] 0.4 mg SL Q5M PRN 05/06/22 03/14/23 Omeprazole [PriLOSEC] 20 mg PO DAILY 05/06/22 03/14/23 Rimegepant Sulfate [Nurtec Odt] 75 mg PO BID PRN 05/06/22 03/14/23 tiZANidine [Zanaflex] 4 mg PO HS 05/06/22 03/14/23 Previous Rx's Medication Instructions Recorded Atorvastatin [Lipitor] 80 mg PO HS #90 tab 05/10/22 Ticagrelor [Brilinta] 90 mg PO BID #60 tab 05/10/22 Cyanocobalamin [Vitamin B-12] 500 mcg PO DAILY #30 tab 09/06/22 Folic Acid 1 mg PO DAILY #30 tab 09/06/22 Loratadine [Claritin] 10 mg PO DAILY 15 Days #15 tab 09/06/22 Meclizine [Antivert] 25 mg PO QID PRN 5 Days #15 tab 09/06/22 Allergies Allergy/AdvReac Type Severity Reaction Status Date / Time wool Allergy Rash/Hives Verified 03/18/23 17:03 Review of Systems ROS Statement: Those systems with pertinent positive or pertinent negative responses have been documented in the HPI. ROS Other: All systems not noted in ROS Statement are negative. Past Medical History Past Medical History: Chest Pain / Angina, GI Bleed, Hyperlipidemia, Osteoarthritis (OA), Thyroid Disorder Additional Past Medical History / Comment(s): See Dr Edward's H&P. Chest pain going on 2 yrs, progressively worsening. Plantar Fasciitis. Colitis. Thyroid nodule. Broke neck 3 yrs ago after falling down stairs - " Have a couple of cracks in my neck." Migraines. History of Any Multi-Drug Resistant Organisms: None Reported Past Surgical History: Section, Heart Catheterization With Stent, Orthopedic Surgery Additional Past Surgical History / Comment(s): Left arm surgery. Dental work. Past Anesthesia/Blood Transfusion Reactions: No Reported Reaction Additional Past Anesthesia/Blood Transfusion Reaction / Comment(s): Mom PONV. Date of Last Stent Placement:: apr Past Psychological History: Depression Smoking Status: Current some day smoker Past Alcohol Use History: None Reported Past Drug Use History: None Reported - Past Family History Mother Family Medical History: AICD/Pacemaker, Cancer Additional Family Medical History / Comment(s): Uterine cancer. General Exam Limitations: no limitations General appearance: alert, in no apparent distress Head exam: Present: normocephalic ENT exam: Present: mucous membranes dry Neck exam: Present: other (Trachea is in midline) Respiratory exam: Present: normal lung sounds bilaterally. Absent: respiratory distress, wheezes, rales, rhonchi, stridor Cardiovascular Exam: Present: normal rhythm, tachycardia, normal heart sounds, other (normal radial pulses bilaterally) GI/Abdominal exam: Present: soft, normal bowel sounds, other (Mild diffuse lower abdominal tenderness). Absent: distended, guarding, rebound Extremities exam: Absent: tenderness, pedal edema, calf tenderness Back exam: Absent: CVA tenderness (R), CVA tenderness (L) Neurological exam: Present: alert, oriented X3 Psychiatric exam: Present: normal affect, normal mood Skin exam: Present: warm, dry, intact, normal color Course Vital Signs 03/18/23 03/18/23 03/18/23 16:59 17:20 18:00 Temperature 98.6 F Pulse Rate 137 H 118 H 103 H Respiratory 20 Rate Blood Pressure 117/74 147/90 134/85 O2 Sat by Pulse 98 97 97 Oximetry 03/18/23 19:00 Temperature Pulse Rate 95 Respiratory Rate Blood Pressure 143/81 O2 Sat by Pulse 96 Oximetry - Reevaluation(s) Reevaluation #1: 03/18/23 21:17 Case, H&P, test results and ED management thus far were discussed with Dr. Goodwin. She accepts hospital admission. She has no further recommendations at this time. 03/18/23 21:21 Patient states that her pain/symptoms have improved with ED treatment. Patient denies development of any new symptoms while in the ED. Patient continues to have a soft and nonsurgical abdominal exam. Patient and sister are aware the patient's test results, and they both agree with hospital admission at this time. EKG Findings - EKG Comments: EKG Findings:: ED physician interpretation (interpreted by me): Sinus tachycardia, ventricular rate of 130 bpm, no ectopy, normal [place] and QRS intervals, normal QT interval, no ST or T-wave abnormality Medical Decision Making - Medical Decision Making Was pt. sent in by a medical professional or institution (, PA, REGISTERED NURSE CARDIAC TELEMETRY, urgent care, hospital, or half-way...) When possible be specific @ -No Did you speak to anyone other than the patient for history (EMS, parent, family, police, friend...)? What history was obtained from this source @ -No Did you review nursing and triage notes (agree or disagree)? Why? @ -I reviewed and agree with nursing and triage notes Were old charts reviewed (outside hosp., previous admission, EMS record, old EKG, old radiological studies, urgent care reports/EKG's, half-way records)? Report findings @ -No old charts were reviewed Differential Diagnosis (chest pain, altered mental status, abdominal pain women, abdominal pain men, vaginal bleeding, weakness, fever, dyspnea, syncope, headache, dizziness, GI bleed, back pain, seizure, CVA, palpatations, mental health, musculoskeletal)? @ -Differential Abdominal Pain Women: Appendicitis, diverticulosis, diverticulitis, colitis, inflammatory bowel di sease, ischemic bowel, pancreatitis, hepatitis, UTI, gastroenteritis, AAA, bowel obstruction, peptic ulcer disease, perforated viscus, rectal bleeding, GI bleeding, anemia, thrombocytopenia, coagulopathy, this is not meant to be an all-inclusive list EKG interpreted by me (3pts min.). @ -None done X-rays interpreted by me (1pt min.). @ -None done CT interpreted by me (1pt min.). @ -CT abdomen/pelvis was reviewed myself and demonstrates findings of colitis. I agree with the radiologist's interpretation as above. U/S interpreted by me (1pt. min.). @ -None done What testing was considered but not performed or refused? (CT, X-rays, U/S, labs)? Why? @ -None What meds were considered but not given or refused? Why? @ -None Did you discuss the management of the patient with other professionals (professionals i.e. , PA, REGISTERED NURSE CARDIAC TELEMETRY, lab, RT, psych nurse, licensed social worker, agency sales development associate, teacher, commanding officer homicide squad, case maker)? Give summary @ -No Was smoking cessation discussed for >3mins.? @ -No Was critical care preformed (if so, how long)? @ -No Were there social determinants of health that impacted care today? How? (Homelessness, low income, unemployed, alcoholism, drug addiction, transportation, low edu. Level, literacy, decrease access to med. care, longterm, rehab)? @ -No Was there de-escalation of care discussed even if they declined (Discuss DNR or withdrawal of care, Hospice)? DNR status @ -No What co-morbidities impacted this encounter? (DM, HTN, Smoking, COPD, CAD, Cancer, CVA, ARF, Chemo, Hep., AIDS, mental health diagnosis, sleep apnea, morbid obesity)? @ -History of ulcerative colitis Was patient admitted / discharged? Hospital course, mention meds given and route, prescriptions, significant lab abnormalities, going to OR and other pertinent info. @ -Given the patient's history and CT findings, I suspect that the patient's symptoms are likely due to ulcerative colitis. Patient reports that the bleeding, but her hemoglobin is stable. Patient's tachycardia has currently resolved. Patient is afebrile and without leukocytosis. Patient has a nonsurgical abdominal exam. Patient has been treated with IV fluids, IV pain meds, IV antiemetics and IV steroids in the ED. Patient's potassium level is mildly low, and she has also been treated with oral potassium repletion. Dr. Goodwin has accepted hospital admission. Undiagnosed new problem with uncertain prognosis? @ -No Drug Therapy requiring intensive monitoring for toxicity (Heparin, Nitro, Insulin, Cardizem)? @ -No Were any procedures done? @ -No Diagnosis/symptom? @ -Ulcerative colitis exacerbation with abdominal pain and rectal bleeding Acute, or Chronic, or Acute on Chronic? @ -Acute Uncomplicated (without systemic symptoms) or Complicated (systemic symptoms)? @ -default Side effects of treatment? @ -No Exacerbation, Progression, or Severe Exacerbation? @ -No Poses a threat to life or bodily function? How? (Chest pain, [place], [place], pneumonia, PE, COPD, DKA, ARF, appy, cholecystitis, CVA, Diverticulitis, Homicidal, Suicidal, threat to staff... and all critical care pts) @ -No Diagnosis/symptom? @ -Hypokalemia Acute, or Chronic, or Acute on Chronic? @ -default Uncomplicated (without systemic symptoms) or Complicated (systemic symptoms)? @ -default Side effects of treatment? @ -none Exacerbation, Progression, or Severe Exacerbation] @ -no Poses a threat to life or bodily function? @ -no - Lab Data Result diagrams: 03/18/23 17:40 03/18/23 17:40 Lab Results 03/18/23 03/18/23 03/18/23 Range/Units 17:40 17:40 17:40 WBC 8.5 (3.8-10.6) k/uL RBC 4.72 (3.80-5.40) m/uL Hgb 12.8 (11.4-16.0) gm/dL Hct 37.5 (34.0-46.0) % MCV 79.4 L (80.0-100.0) fL MCH 27.1 (25.0-35.0) pg MCHC 34.2 (31.0-37.0) g/dL RDW 16.7 H (11.5-15.5) % Plt Count 429 (150-450) k/uL MPV 7.0 Neutrophils % 71 % Lymphocytes % 14 % Monocytes % 11 % Eosinophils % 1 % Basophils % 1 % Neutrophils # 6.0 (1.3-7.7) k/uL Lymphocytes # 1.2 (1.0-4.8) k/uL Monocytes # 1.0 (0-1.0) k/uL Eosinophils # 0.1 (0-0.7) k/uL Basophils # 0.1 (0-0.2) k/uL Anisocytosis Slight Microcytosis Slight PT 10.4 (9.0-12.0) sec INR 1.0 (<1.2) APTT 23.0 (22.0-30.0) sec Sodium 133 L (137-145) mmol/L Potassium 3.1 L (3.5-5.1) mmol/L Chloride 99 (98-107) mmol/L Carbon Dioxide 21 L (22-30) mmol/L Anion Gap 13 mmol/L BUN 10 (7-17) mg/dL Creatinine 0.98 (0.52-1.04) mg/dL Est GFR (CKD-EPI)AfAm 77 (>60 ml/min/1.73 sqM) Est GFR (CKD-EPI)NonAf 67 (>60 ml/min/1.73 sqM) Glucose 122 H (74-99) mg/dL Calcium 8.9 (8.4-10.2) mg/dL Total Bilirubin 0.8 (0.2-1.3) mg/dL AST 15 (14-36) U/L ALT 10 (4-34) U/L Alkaline Phosphatase 121 (38-126) U/L Total Protein 6.6 (6.3-8.2) g/dL Albumin 3.5 (3.5-5.0) g/dL Lipase 35 (23-300) U/L - Radiology Data CT abdomen/pelvis with IV contrast: 1. Diffuse wall thickening throughout the colon with some extension into the terminal ileum. Correlate for ulcerative colitis versus colitis or C. difficile. Disposition Clinical Impression: Abdominal pain, Hypokalemia, Ulcerative colitis, Rectal bleeding Disposition: ADMITTED IP TO THIS HOSP Condition: Stable Is patient prescribed a controlled substance at d/c from ED?: No Referrals: Vishnu Avelar DO [Primary Care Provider] - 1-2 days Time of Disposition: 21:18
[2023-03-18] MEDS ORDERED: ONDANSETRON 4 MG/2 ML VIAL IVP STA (17:23)
[2023-03-18] MEDS ORDERED: SODIUM CHLORIDE 0.9% 1,000 ML IV STA (17:23)
[2023-03-18] MEDS ORDERED: MORPHINE SULFATE 4 MG/ML SYRINGE IVP STA (17:24)
[2023-03-18 18:02] LABS: ALT 10 U/L (4-34); AST 15 U/L (14-36); African American GFR (CKD) 77 (>60 ml/min/1.73 sqM); Albumin 3.5 g/dL (3.5-5.0); Alkaline Phosphatase 121 U/L (38-126); Anion Gap 13 mmol/L; Blood Urea Nitrogen 10 mg/dL (7-17); Calcium 8.9 mg/dL (8.4-10.2); Carbon Dioxide 21 mmol/L (22-30); Chloride 99 mmol/L (98-107); Glucose 122 mg/dL (74-99); Lipase 35 U/L (23-300); Non-African American GFR(CKD) 67 (>60 ml/min/1.73 sqM); Potassium 3.1 mmol/L (3.5-5.1); Prothrombin Time 10.4 sec (9.0-12.0); Sodium 133 mmol/L (137-145); Total Bilirubin 0.8 mg/dL (0.2-1.3); Total Protein 6.6 g/dL (6.3-8.2)
[2023-03-18 18:13] LABS: Anisocytosis Slight; Basophils # (A) 0.1 k/uL (0-0.2); Basophils % (A) 1 %; Eosinophils # (A) 0.1 k/uL (0-0.7); Eosinophils % (A) 1 %; HCT 37.5 % (34.0-46.0); HGB 12.8 gm/dL (11.4-16.0); Lymphocytes # (A) 1.2 k/uL (1.0-4.8); Lymphocytes % (A) 14 %; MCH 27.1 pg (25.0-35.0); MCHC 34.2 g/dL (31.0-37.0); MCV 79.4 fL (80.0-100.0); Microcytosis Slight; Monocytes % (A) 11 %; Neutrophils % (A) 71 %; Platelet Count 429 k/uL (150-450); RBC 4.72 m/uL (3.80-5.40); RDW 16.7 % (11.5-15.5); WBC 8.5 k/uL (3.8-10.6)
[2023-03-18] MEDS ORDERED: POTASSIUM CHLORIDE ER 20 MEQ TAB.ER PO STA (18:48)
--- NOTE | 2023-03-18 20:07 | CT ---
EXAMINATION TYPE: CT abdomen pelvis w con DATE OF EXAM: 03/18/2023 COMPARISON: None INDICATION: Abdominal pain. Bloody stools. DLP: 1474.5 mGycm, Automated exposure control for dose reduction was used. CONTRAST: 100 ml mL of Isovue 300. Study performed without Oral Contrast TECHNIQUE: Axial images were obtained from above the diaphragm to the pubic rami in the axial plane a t 5 mm thick sections. Reconstructed images are reviewed on the computer in the coronal plane. FINDINGS: Limited CT sections are obtained the lung bases. The lung bases are clear. CT ABDOMEN: Liver: Normal Spleen: Normal. Splenules adjacent to the spleen Pancreas: Normal Adrenal glands: The adrenal glands are normal. Gallbladder: Normal Kidneys: No masses are evident. No hydronephrosis is present. No cysts are present. Aorta: Vascular calcification is within the aorta. Inferior vena cava: Normal. CT PELVIS: Extensive wall thickening is through the colon from the terminal ileum extending to the cecum through the ascending transverse and descending colon with additional thickening of the sigmoid colon and re ctum. Correlate for ulcerative colitis. Clinical correlation recommended for C. difficile. Small bowel loops are nondilated. There are a few small bowel loops containing fluid. There are loops of bowel which are incompletely distended or lack oral contrast limiting their evaluation. Appendix: Not identified. No dilated tubular structure or inflammatory change in the expected region of the appendix is identified. Urinary bladder: Decompressed with limited evaluation Genitourinary structures: Uterus is normal. Adnexa are normal. Osseous structures: No suspicious lytic or sclerotic lesions. IMPRESSIONS: 1. Diffuse wall thickening throughout the colon with some extension into the terminal ileum. Correla te for ulcerative colitis versus colitis or C. difficile.
[2023-03-18] MEDS ORDERED: methylPREDNISolone SOD SUCCI 125 MG/2 ML VIAL IV STA (21:16)
[2023-03-18] MEDS ORDERED: ONDANSETRON 4 MG/2 ML VIAL IVP PRN (21:18)
[2023-03-18] MEDS ORDERED: NALOXONE 0.4 MG/ML 1 ML VIAL IV PRN (21:18)
[2023-03-18] MEDS: SODIUM CHLORIDE 0.9% 1,000 ML IV SCH (21:46)
[2023-03-18] MEDS: MORPHINE SULFATE 4 MG/ML SYRINGE IV PRN (21:50)
[2023-03-19] MEDS: MORPHINE SULFATE 4 MG/ML SYRINGE IV PRN ×3 (01:57→19:43)
[2023-03-19 04:50] LABS: Anisocytosis Slight; Basophils % (A) 0 %; Eosinophils % (A) 0 %; HCT 32.6 % (34.0-46.0); HGB 10.8 gm/dL (11.4-16.0); Hypochromasia Slight; Lymphocytes # (A) 0.6 k/uL (1.0-4.8); Lymphocytes % (A) 8 %; MCH 27.1 pg (25.0-35.0); MCHC 33.1 g/dL (31.0-37.0); MCV 81.6 fL (80.0-100.0); Monocytes # (A) 0.2 k/uL (0-1.0); Monocytes % (A) 3 %; Neutrophils # (A) 6.2 k/uL (1.3-7.7); Neutrophils % (A) 87 %; Platelet Count 356 k/uL (150-450); RBC 3.99 m/uL (3.80-5.40); RDW 16.4 % (11.5-15.5); WBC 7.1 k/uL (3.8-10.6)
[2023-03-19 05:01] LABS: ALT 8 U/L (4-34); AST 13 U/L (14-36); African American GFR (CKD) 84 (>60 ml/min/1.73 sqM); Blood Urea Nitrogen 9 mg/dL (7-17); Carbon Dioxide 22 mmol/L (22-30); Non-African American GFR(CKD) 73 (>60 ml/min/1.73 sqM); Potassium 4.5 mmol/L (3.5-5.1); Sodium 133 mmol/L (137-145); Total Bilirubin 0.5 mg/dL (0.2-1.3); Total Protein 5.7 g/dL (6.3-8.2)
[2023-03-19 05:03] LABS: Glucose 159 mg/dL (74-99)
[2023-03-19 05:39] LABS: Alkaline Phosphatase 97 U/L (38-126); Anion Gap 9 mmol/L; Calcium 8.6 mg/dL (8.4-10.2); Chloride 102 mmol/L (98-107)
[2023-03-19] MEDS: SODIUM CHLORIDE 0.9% 1,000 ML IV SCH ×2 (11:19→23:25)
[2023-03-19] MEDS: methylPREDNISolone SOD SUCCI 40 MG/ML 1 ML VIAL IV SCH ×2 (12:39→19:44)
--- NOTE | 2023-03-19 13:03 | P.HPIM ---
History of Present Illness H&P Date: 03/18/23 Chief Complaint: Abdominal Pain 52 yo female Patient, with history of hypertension, hyperlipidemia, migraine headaches, GERD, coronary artery disease with stent placement, presents to the ED with her sister for evaluation. Patient states that she has a history of ulcerative colitis, and she states that she has had "a UC flare" for the past 8- 9 days. Patient states that her symptoms have become worse over the past 2 days. Patient reports having symptoms of lower abdominal pain, nausea and bloody bowel movements. Patient states that her bowel movements are always loo se. Patient is on Brilinta. Patient denies trauma or injury, fever or chills, headache, chest pain, dyspnea, cough or cold symptoms, palpitations, dizziness, upper abdominal pain, vomiting, dysuria/hematuria/urinary frequency/urinary symptoms, or any other symptoms or complaints. Patient rates her pain at 4/10 currently. Blood work completed immediately with a sodium of 133, potassium 4.1, BUN /creatinine of 10/0.98 and blood glucose of 122; WBC 8.5, hemoglobin 12.8 and platelet count of 420 CT abdomen/pelvis was reviewed myself and demonstrates findings of colitis In the ED patient reported Rectal bleeding but hemoglobin is stable. Patient's tachycardia has currently resolved. Patient is afebrile and without leukocytosis. Patient has a nonsurgical abdominal exam. Patient has been treated with IV fluids, IV pain meds, IV antiemetics and IV steroids in the ED. Patient's potassium level is mildly low, and she has also been treated with oral potassium repletion. Review of Systems REVIEW OF SYSTEMS: CONSTITUTIONAL: No fever, no malaise, no fatigue. HEENT: No recent visual problems or hearing problems. Denied any sore throat. CARDIOVASCULAR: No chest pain, orthopnea, PND, no palpitations, no syncope. PULMONARY: No shortness of breath, no cough, no hemoptysis. GASTROINTESTINAL: No diarrhea, no nausea, no vomiting, no abdominal pain. Normoactive bowel sounds. NEUROLOGICAL: No headaches, no weakness, no numbness. HEMATOLOGICAL: Denies any bleeding or petechiae. GENITOURINARY: Denies any burning micturition, frequency, or urgency. MUSCULOSKELETAL/RHEUMATOLOGICAL: Denies any joint pain, swelling, or any muscle pain. ENDOCRINE: Denies any polyuria or polydipsia. The rest of the 14-point review of systems is negative. Past Medical History Past Medical History: Chest Pain / Angina, GI Bleed, Hyperlipidemia, Osteoarthritis (OA), Thyroid Disorder Additional Past Medical History / Comment(s): See Dr Edward's H&P. Chest pain going on 2 yrs, progressively worsening. Plantar Fasciitis. Colitis. Thyroid nodule. Broke neck 3 yrs ago after falling down stairs - " Have a couple of cracks in my neck." Migraines. History of Any Multi-Drug Resistant Organisms: None Reported Past Surgical History: Section, Heart Catheterization With Stent, Orthopedic Surgery Additional Past Surgical History / Comment(s): Left arm surgery. Dental work. Past Anesthesia/Blood Transfusion Reactions: No Reported Reaction Additional Past Anesthesia/Blood Transfusion Reaction / Comment(s): Mom PONV. Date of Last Stent Placement:: apr Past Psychological History: Depression Smoking Status: Current some day smoker Past Alcohol Use History: None Reported Past Drug Use History: None Reported - Past Family History Mother Family Medical History: AICD/Pacemaker, Cancer Additional Family Medical History / Comment(s): Uterine cancer. Medications and Allergies Home Medications Medication Instructions Recorded Confirmed Type Aspirin [Adult Low Dose Aspirin EC] 81 mg PO DAILY 05/06/22 03/18/23 History Escitalopram [Lexapro] 10 mg PO DAILY 05/06/22 03/18/23 History Mesalamine 4.8 gm PO DAILY 05/06/22 03/18/23 History Metoprolol Succinate [Metoprolol 25 mg PO DAILY 05/06/22 03/18/23 History Succinate ER] Nitroglycerin Sl Tabs [Nitrostat] 0.4 mg SL Q5M PRN 05/06/22 03/18/23 History Omeprazole [PriLOSEC] 20 mg PO DAILY 05/06/22 03/18/23 History Rimegepant Sulfate [Nurtec Odt] 75 mg PO BID PRN 05/06/22 03/18/23 History tiZANidine [Zanaflex] 4 mg PO HS 05/06/22 03/18/23 History Atorvastatin [Lipitor] 80 mg PO HS #90 tab 05/10/22 03/18/23 Rx Ticagrelor [Brilinta] 90 mg PO BID #60 tab 09/27/22 08/05/23 Rx Ibuprofen [Motrin] 600 mg PO TID-W/MEALS PRN 03/18/23 03/18/23 History Allergies Allergy/AdvReac Type Severity Reaction Status Date / Time wool Allergy Rash/Hives Verified 03/18/23 21:57 Physical Exam Vitals: Vital Signs Temp Pulse Resp BP Pulse Ox 03/18/23 21:44 101 H 16 131/74 96 03/18/23 19:00 95 143/81 96 03/18/23 18:00 103 H 134/85 97 03/18/23 17:20 118 H 147/90 97 03/18/23 16:59 98.6 F 137 H 20 117/74 98 Intake and Output 03/18/23 03/18/23 03/18/23 06:59 14:59 22:59 Other: Weight 90.718 kg General appearance: alert, in no apparent distress Head exam: Present: normocephalic ENT exam: Present: mucous membranes dry Neck exam: Present: other (Trachea is in midline) Respiratory exam: Present: normal lung sounds bilaterally. Absent: respiratory distress, wheezes, rales, rhonchi, stridor Cardiovascular Exam: Present: normal rhythm, tachycardia, normal heart sounds, other (normal radial pulses bilaterally) GI/Abdominal exam: Present: soft, normal bowel sounds, other (Mild diffuse lower abdominal tenderness). Absent: distended, guarding, rebound Extremities exam: Absent: tenderness, pedal edema, calf tenderness Back exam: Absent: CVA tenderness (R), CVA tenderness (L) Neurological exam: Present: alert, oriented X3 Psychiatric exam: Present: normal affect, normal mood Skin exam: Present: warm, dry, intact, normal color Results CBC & Chem 7: 03/19/23 03:47 03/19/23 03:47 Labs: Abnormal Lab Results - Last 24 Hours (Table) 03/18/23 03/18/23 Range/Units 17:40 17:40 MCV 79.4 L (80.0-100.0) fL RDW 16.7 H (11.5-15.5) % Sodium 133 L (137-145) mmol/L Potassium 3.1 L (3.5-5.1) mmol/L Carbon Dioxide 21 L (22-30) mmol/L Glucose 122 H (74-99) mg/dL Assessment and Plan Assessment: 1. Abdominal pain/rectal bleeding/ acute flare of ulcerative colitis - CT of the abdomen reveals diffuse wall thickening throughout the colon with some extension into terminal ileum, correlate for ulcerative colitis versus C. diff colitis versus acute colitis; patient does report rectal bleeding; white b lood count remains normal; hemoglobin is currently stable - Patient received Solu-Medrol 125 mg IV 1 in ED; we will start patient on 40 mg IV every 8 hours with plans to transition to oral prednisone and slow taper once patient improves clinically; mesalamine 4.8 mg by mouth daily - Monitor CBC, CRP and pro-calcitonin 2. Rectal bleed; likely related to acute exacerbation of ulcerative colitis; no episodes in the hospital; hemoglobin is currently within normal limits - We will consult general surgery for further evaluation if patient continues to have rectal bleeding with hemoglobin continues to drop - We will monitor CBC closely; type crossmatch and transfuse packed RBCs if hemoglobin is less than 7.0 3. Hypokalemia; supplemented in ED; we'll continue to monitor electrolytes closely and supplement as needed 4. Hypertension; metoprolol 25 mg daily 5. Hyperlipidemia; Lipitor 80 mg by mouth daily at bedtime 6. Coronary artery disease; patient is status post stent placement; remains on dual antiplatelet therapy with aspirin and Brilinta; continue Lipitor and metoprolol; nitroglycerin sublingual 0.4 mg every 5 minutes when necessary 7. Depression/anxiety; Lexapro 10 mg daily at bedtime DVT prophylaxis; SCDs CODE STATUS; full code
[2023-03-19 13:59] LABS: African American GFR (CKD) >90 (>60 ml/min/1.73 sqM); Anion Gap 10 mmol/L; Blood Urea Nitrogen 9 mg/dL (7-17); Calcium 8.5 mg/dL (8.4-10.2); Carbon Dioxide 17 mmol/L (22-30); Chloride 103 mmol/L (98-107); Glucose 168 mg/dL (74-99); Non-African American GFR(CKD) >90 (>60 ml/min/1.73 sqM); Potassium 4.1 mmol/L (3.5-5.1); Sodium 130 mmol/L (137-145)
[2023-03-19 14:04] LABS: Anisocytosis Slight; HCT 29.2 % (34.0-46.0); HGB 9.5 gm/dL (11.4-16.0); Hypochromasia Slight; MCH 26.9 pg (25.0-35.0); MCHC 32.7 g/dL (31.0-37.0); MCV 82.4 fL (80.0-100.0); Mean Platelet Volume 6.9; Platelet Count 351 k/uL (150-450); RBC 3.54 m/uL (3.80-5.40); RDW 16.6 % (11.5-15.5); WBC 6.3 k/uL (3.8-10.6)
[2023-03-19 14:15] LABS: C Reactive Protein 13.4 mg/dL (<1.0)
[2023-03-19 14:45] LABS: Band Neutrophils % 22 %; Eosinophils # (M) 0.19 k/uL (0-0.7); Lymphocytes # (M) 1.01 k/uL (1.0-4.8); Monocytes # (M) 0.38 k/uL (0-1.0); Neutrophils % (M) 53 %; Nucleated Red Blood Cells 0 /100 WBC (0-0); Total Cells Counted 100
--- NOTE | 2023-03-19 14:49 | P.GSCN ---
History of Present Illness Consult date: 03/19/23 History of present illness: She has personal history of ulcerative colitis. Her GI doctor is Dr Martínez She reports improvement of her abdominal pain as she had previous attacks She is on steroids She has nausea now improved. Past Medical History Past Medical History: Chest Pain / Angina, GI Bleed, Hyperlipidemia, Osteoarthritis (OA), Thyroid Disorder Additional Past Medical History / Comment(s): See Dr Edward's H&P. Chest pain going on 2 yrs, progressively worsening. Plantar Fasciitis. Colitis. Thyroid nodule. Broke neck 3 yrs ago after falling down stairs - " Have a couple of cracks in my neck." Migraines. History of Any Multi-Drug Resistant Organisms: None Reported Past Surgical History: Section, Heart Catheterization With Stent, Ort hopedic Surgery Additional Past Surgical History / Comment(s): Left arm surgery. Dental work. Past Anesthesia/Blood Transfusion Reactions: No Reported Reaction Additional Past Anesthesia/Blood Transfusion Reaction / Comm: Mom PONV. Date of Last Stent Placement:: apr Past Psychological History: Depression Smoking Status: Current some day smoker Past Alcohol Use History: None Reported Past Drug Use History: None Reported - Past Family History Mother Family Medical History: AICD/Pacemaker, Cancer Additional Family Medical History / Comment(s): Uterine cancer. Medications and Allergies Home Medications Medication Instructions Recorded Confirmed Type Aspirin [Adult Low Dose Aspirin EC] 81 mg PO DAILY 05/06/22 03/18/23 History Escitalopram [Lexapro] 10 mg PO DAILY 05/06/22 03/18/23 History Mesalamine 4.8 gm PO DAILY 05/06/22 03/18/23 History Metoprolol Succinate [Metoprolol 25 mg PO DAILY 05/06/22 03/18/23 History Succinate ER] Nitroglycerin Sl Tabs [Nitrostat] 0.4 mg SL Q5M PRN 05/06/22 03/18/23 History Omeprazole [PriLOSEC] 20 mg PO DAILY 05/06/22 03/18/23 History Rimegepant Sulfate [Nurtec Odt] 75 mg PO BID PRN 05/06/22 03/18/23 History tiZANidine [Zanaflex] 4 mg PO HS 05/06/22 03/18/23 History Atorvastatin [Lipitor] 80 mg PO HS #90 tab 05/10/22 03/18/23 Rx Ticagrelor [Brilinta] 90 mg PO BID #60 tab 05/10/22 03/18/23 Rx Ibuprofen [Motrin] 600 mg PO TID-W/MEALS PRN 03/18/23 03/18/23 History Allergies Allergy/AdvReac Type Severity Reaction Status Date / Time wool Allergy Rash/Hives Verified 03/18/23 21:57 Surgical - Exam Vital Signs Temp Pulse Resp BP Pulse Ox 98.6 F 137 H 20 117/74 98 03/18/23 16:59 03/18/23 16:59 03/18/23 16:59 03/18/23 16:59 03/18/23 16:59 Results - Labs 03/19/23 13:01 03/19/23 13:01 Abnormal Lab Results - Last 24 Hours (Table) 03/18/23 03/18/23 03/19/23 Range/Units 17:40 17:40 03:47 RBC (3.80-5.40) m/uL Hgb 10.8 L (11.4-16.0) gm/dL Hct 32.6 L (34.0-46.0) % MCV 79.4 L (80.0-100.0) fL RDW 16.7 H 16.4 H (11.5-15.5) % Lymphocytes # 0.6 L (1.0-4.8) k/uL Sodium 133 L (137-145) mmol/L Potassium 3.1 L (3.5-5.1) mmol/L Carbon Dioxide 21 L (22-30) mmol/L Glucose 122 H (74-99) mg/dL AST (14-36) U/L C-Reactive Protein (<1.0) mg/dL Total Protein (6.3-8.2) g/dL Albumin (3.5-5.0) g/dL 03/19/23 03/19/23 03/19/23 Range/Units 03:47 13:01 13:01 RBC 3.54 L (3.80-5.40) m/uL Hgb 9.5 L (11.4-16.0) gm/dL Hct 29.2 L (34.0-46.0) % MCV (80.0-100.0) fL RDW 16.6 H (11.5-15.5) % Lymphocytes # (1.0-4.8) k/uL Sodium 133 L 130 L (137-145) mmol/L Potassium (3.5-5.1) mmol/L Carbon Dioxide 17 L (22-30) mmol/L Glucose 159 H 168 H (74-99) mg/dL AST 13 L (14-36) U/L C-Reactive Protein 13.4 H (<1.0) mg/dL Total Protein 5.7 L (6.3-8.2) g/dL Albumin 3.0 L (3.5-5.0) g/dL Diabetes panel 03/18/23 03/19/23 03/19/23 Range/Units 17:40 03:47 13:01 Sodium 133 L 133 L 130 L (137-145) mmol/L Potassium 3.1 L 4.5 4.1 (3.5-5.1) mmol/L Chloride 99 102 103 (98-107) mmol/L Carbon Dioxide 21 L 22 17 L (22-30) mmol/L BUN 10 9 9 (7-17) mg/dL Creatinine 0.98 0.91 0.75 (0.52-1.04) mg/dL Glucose 122 H 159 H 168 H (74-99) mg/dL Calcium 8.9 8.6 8.5 (8.4-10.2) mg/dL AST 15 13 L (14-36) U/L ALT 10 8 (4-34) U/L Alkaline Phosphatase 121 97 (38-126) U/L Total Protein 6.6 5.7 L (6.3-8.2) g/dL Albumin 3.5 3.0 L (3.5-5.0) g/dL Calcium panel 03/18/23 03/19/23 03/19/23 Range/Units 17:40 03:47 13:01 Calcium 8.9 8.6 8.5 (8.4-10.2) mg/dL Albumin 3.5 3.0 L (3.5-5.0) g/dL Pituitary panel 03/18/23 03/19/23 03/19/23 Range/Units 17:40 03:47 13:01 Sodium 133 L 133 L 130 L (137-145) mmol/L Potassium 3.1 L 4.5 4.1 (3.5-5.1) mmol/L Chloride 99 102 103 (98-107) mmol/L Carbon Dioxide 21 L 22 17 L (22-30) mmol/L BUN 10 9 9 (7-17) mg/dL Creatinine 0.98 0.91 0.75 (0.52-1.04) mg/dL Glucose 122 H 159 H 168 H (74-99) mg/dL Calcium 8.9 8.6 8.5 (8.4-10.2) mg/dL Adrenal panel 03/18/23 03/19/23 03/19/23 Range/Units 17:40 03:47 13:01 Sodium 133 L 133 L 130 L (137-145) mmol/L Potassium 3.1 L 4.5 4.1 (3.5-5.1) mmol/L Chloride 99 102 103 (98-107) mmol/L Carbon Dioxide 21 L 22 17 L (22-30) mmol/L BUN 10 9 9 (7-17) mg/dL Creatinine 0.98 0.91 0.75 (0.52-1.04) mg/dL Glucose 122 H 159 H 168 H (74-99) mg/dL Calcium 8.9 8.6 8.5 (8.4-10.2) mg/dL Total Bilirubin 0.8 0.5 (0.2-1.3) mg/dL AST 15 13 L (14-36) U/L ALT 10 8 (4-34) U/L Alkaline Phosphatase 121 97 (38-126) U/L Total Protein 6.6 5.7 L (6.3-8.2) g/dL Albumin 3.5 3.0 L (3.5-5.0) g/dL
[2023-03-19] MEDS: ESCITALOPRAM 10 MG TAB PO SCH (14:54)
[2023-03-19] MEDS: TICAGRELOR 90 MG TAB PO SCH ×2 (14:55→20:11)
[2023-03-19] MEDS: MESALAMINE 1.2 GM PO SCH (14:55)
[2023-03-19] MEDS ORDERED: methylPREDNISolone SOD SUCCI 40 MG/ML 1 ML VIAL IV SCH (16:00)
--- NOTE | 2023-03-19 18:30 | P.PN ---
Subjective Progress Note Date: 03/19/23 52 yo female Patient, with history of hypertension, hyperlipidemia, migraine headaches, GERD, coronary artery disease with stent placement, presents to the ED with her sister for evaluation. Patient states that she has a history of ulcerative colitis, and she states that she has had "a UC flare" for the past 8- 9 days. Patient states that her symptoms have become worse over the past 2 days. Patient reports having symptoms of lower abdominal pain, nausea and bloody bowel movements. Patient states that her bowel movements are always loose. Patient is on Brilinta. Patient denies trauma or injury, fever or chills, headache, chest pain, dyspnea, cough or cold symptoms, palpitations, dizziness, upper abdominal pain, vomiting, dysuria/hematuria/urinary frequency/urinary symptoms, or any other symptoms or complaints. Patient rates her pain at 4/10 currently. Blood work completed immediately with a sodium of 133, potassium 4.1, BUN/creatinine of 10/0.98 and blood glucose of 122; WBC 8.5, hemoglobin 12.8 and platelet count of 420 CT abdomen/pelvis was reviewed myself and demonstrates findings of colitis In the ED patient reported Rectal bleeding but hemoglobin is stable. Patient's tachycardia has currently resolved. Patient is afebrile and without leukocytosis. Patient has a nonsurgical abdominal exam. Patient has been treated with IV fluids, IV pain meds, IV antiemetics and IV steroids in the ED. Patient's potassium level is mildly low, and she has also been treated with oral potassium repletion. -- Patient has been hypotensive; received 500 mL IV normal saline bolus along with Midodrin 10 mg by mouth 3 times a day; prednisone IV antibiotics; ID and surgery service on board Objective - Vital Signs Vital signs: Vital Signs Temp 98.2 F 03/19/23 07:15 Pulse 75 03/19/23 07:15 Resp 15 03/19/23 07:15 BP 104/67 03/19/23 07:15 Pulse Ox 95 03/19/23 07:15 FiO2 Intake & Output 03/18/23 03/19/23 03/19/23 18:59 06:59 18:59 Weight 90.718 kg 90.718 kg Other: # Voids 1 - Exam General appearance: alert, in no apparent distress Head exam: Present: normocephalic ENT exam: Present: mucous membranes dry Neck exam: Present: other (Trachea is in midline) Respiratory exam: Present: normal lung sounds bilaterally. Absent: respiratory distress, wheezes, rales, rhonchi, stridor Cardiovascular Exam: Present: normal rhythm, tachycardia, normal heart sounds, other (normal radial pulses bilaterally) GI/Abdominal exam: Present: soft, normal bowel sounds, other (Mild diffuse lower abdominal tenderness). Absent: distended, guarding, rebound Extremities exam: Absent: tenderness, pedal edema, calf tenderness Back exam: Absent: CVA tenderness (R), CVA tenderness (L) Neurological exam: Present: alert, oriented X3 Psychiatric exam: Present: normal affect, normal mood Skin exam: Present: warm, dry, intact, normal color - Labs CBC & Chem 7: 03/19/23 13:01 03/19/23 13:01 Labs: Abnormal Lab Results - Last 24 Hours (Table) 03/18/23 03/18/23 03/19/23 Range/Units 17:40 17:40 03:47 Hgb 10.8 L (11.4-16.0) gm/dL Hct 32.6 L (34.0-46.0) % MCV 79.4 L (80.0-100.0) fL RDW 16.7 H 16.4 H (11.5-15.5) % Lymphocytes # 0.6 L (1.0-4.8) k/uL Sodium 133 L (137-145) mmol/L Potassium 3.1 L (3.5-5.1) mmol/L Carbon Dioxide 21 L (22-30) mmol/L Glucose 122 H (74-99) mg/dL AST (14-36) U/L Total Protein (6.3-8.2) g/dL Albumin (3.5-5.0) g/dL 03/19/23 Range/Units 03:47 Hgb (11.4-16.0) gm/dL Hct (34.0-46.0) % MCV (80.0-100.0) fL RDW (11.5-15.5) % Lymphocytes # (1.0-4.8) k/uL Sodium 133 L (137-145) mmol/L Potassium (3.5-5.1) mmol/L Carbon Dioxide (22-30) mmol/L Glucose 159 H (74-99) mg/dL AST 13 L (14-36) U/L Total Protein 5.7 L (6.3-8.2) g/dL Albumin 3.0 L (3.5-5.0) g/dL Assessment and Plan Assessment: 1. Abdominal pain/rectal bleeding/ acute flare of ulcerative colitis - CT of the abdomen reveals diffuse wall thickening throughout the colon with some extension into terminal ileum, correlate for ulcerative colitis versus C. diff colitis versus acute colitis; patient does report rectal bleeding; white blood count remains normal; hemoglobin is currently stable - Patient received Solu-Medrol 125 mg IV 1 in ED; we will start patient on 40 mg IV every 8 hours with plans to transition to oral prednisone and slow taper once patient improves clinically; mesalamine 4.8 mg by mouth daily - Monitor CBC, CRP and pro-calcitonin 2. Rectal bleed; likely related to acute exacerbation of ulcerative colitis; no episodes in the hospital; hemoglobin is currently within normal limits - We will consult general surgery for further evaluation if patient continues to have rectal bleeding with hemoglobin continues to drop - We will monitor CBC closely; type crossmatch and transfuse packed RBCs if hemoglobin is less than 7.0 3. Hypokalemia; supplemented in ED; we'll continue to monitor electrolytes closely and supplement as needed 4. Hypertension; metoprolol 25 mg daily 5. Hyperlipidemia; Lipitor 80 mg by mouth daily at bedtime 6. Coronary artery disease; patient is status post stent placement; remains on dual antiplatelet therapy with aspirin and Brilinta; continue Lipitor and metoprolol; nitroglycerin sublingual 0.4 mg every 5 minutes when necessary 7. Depression/anxiety; Lexapro 10 mg daily at bedtime DVT prophylaxis; SCDs CODE STATUS; full code
[2023-03-20] MEDS: methylPREDNISolone SOD SUCCI 40 MG/ML 1 ML VIAL IV SCH ×3 (05:22→20:47)
[2023-03-20] MEDS: ESCITALOPRAM 10 MG TAB PO SCH (07:28)
[2023-03-20] MEDS: TICAGRELOR 90 MG TAB PO SCH (07:28)
[2023-03-20] MEDS: MESALAMINE 1.2 GM PO SCH (07:30)
[2023-03-20 08:44] LABS: Blood Urea Nitrogen 9.2 mg/dL (9.0-27.0); Calcium 8.9 mg/dL (8.7-10.3); Carbon Dioxide 22.7 mmol/L (21.6-31.8); Chloride 106 mmol/L (96-109); Glucose 145 mg/dL (70-110); Potassium 4.3 mmol/L (3.5-5.5); Sodium 139 mmol/L (135-145)
[2023-03-20 08:45] LABS: HCT 27.2 % (37.2-50.0); HGB 8.4 d/dL (12.0-17.0); MCH 26.3 pg (27.0-32.0); MCHC 30.9 d/dL (32.0-37.0); MCV 85.3 FL (80.0-97.0); Mean Platelet Volume 9.2 FL (9.5-12.2); NRBC Per 100 WBC 0 X 10*3/uL (0.00-0.01); Platelet Count 362 X 10*3/uL (140-440); RBC 3.19 X 10*6/uL (4.10-5.60); RDW 16.5 % (11.5-14.5); WBC 7.05 X 10*3/uL (4.50-10.00)
[2023-03-20 09:42] LABS: Basophils # (M) 0 X 10*3/uL (0.00-0.10); Elliptocytes 2+; Eosinophils # (M) 0 X 10*3/uL (0.04-0.35); Hypochromasia (M) 2+; Lymphocytes # (M) 0.49 X 10*3/uL (0.90-5.00); Metamyelocytes % 2 % (0-0); Microcytosis (M) 2+; Monocytes # (M) 0.35 X 10*3/uL (0.20-1.00); Neutrophils # (M) 6.06 X 10*3/uL (1.80-7.70); Neutrophils % (M) 86 %
[2023-03-20] MEDS: MORPHINE SULFATE 4 MG/ML SYRINGE IV PRN ×2 (11:38→20:47)
[2023-03-20] MEDS: SODIUM CHLORIDE 0.9% 1,000 ML IV SCH (13:59)
[2023-03-20] MEDS: PANTOPRAZOLE 40 MG/10 ML VIAL IVP SCH ×2 (13:59→20:52)
--- NOTE | 2023-03-20 15:04 | P.PN ---
Subjective Progress Note Date: 03/20/23 CHIEF COMPLAINT: Abdominal pain HISTORY OF PRESENT ILLNESS: Patient being treated for ulcerative colitis. She is on steroids. She is having diarrhea and flatus. She did have episodic nausea. She reports that the stools have less blood present. They are now pink tinged. However, she is now having incontinence of stool. Hemoglobin down from 9.5-8.4. Patient initially scheduled for colonoscopy on 03/21/[address] Lara. Brilenta placed on hold. PHYSICAL EXAM: VITAL SIGNS: Reviewed GENERAL: Well-developed in no acute distress. HEENT: No sclera icterus. Extraocular movements grossly intact. Moist buccal mucosa. Head is atraumatic, normocephalic. Hears conversational speech. No nasal d rainage. NECK: Supple without lymphadenopathy. CHEST: Non-labored respirations and equal bilateral excursions. CARDIOVASCULAR: Palpable 2+ radial pulses. ABDOMEN: Soft. Nondistended. MUSCULOSKELETAL: No clubbing or cyanosis. NEUROLOGIC: No focal or lateralizing signs. Cranial nerves II through XII grossly intact. PSYCH: Appropriate affect. Alert and oriented to person, place and time. SKIN: Well perfused. Good skin turgor. ASSESSMENT: 1. Ulcerative colitis exacerbation 2. Acute GI bleed due to ulcerative colitis exacerbation PLAN: -Discussed case with GI service. GI service not available this week. Dr. Garcia recommends follow-up appointment in 1-2 weeks and at that time they can reschedule colonoscopy when she is feeling better and patient needs to be off of the Brilenta for 5 days -Continue IV steroids -Continue supportive care -Continue clear liquid diet Physician Lab Specialist note has been reviewed by physician. Signing provider agrees with the documented findings, assessment, and plan of care. Objective - Vital Signs Vital signs: Vital Signs Temp 98.5 F 03/20/23 14:00 Pulse 77 03/20/23 14:00 Resp 18 03/20/23 14:00 BP 116/70 03/20/23 14:00 Pulse Ox 94 L 03/20/23 14:00 FiO2 Intake & Output 03/19/23 03/20/23 03/20/23 18:59 06:59 18:59 Other: Voiding Method Toilet # Voids 3 3 # Bowel Movements 1 - Labs CBC & Chem 7: 03/20/23 04:21 03/20/23 04:21 Labs: Abnormal Lab Results - Last 24 Hours (Table) 03/20/23 03/20/23 Range/Units 04:21 04:21 RBC 3.19 L (4.10-5.60) X 10*6/uL Hgb 8.4 L (12.0-17.0) d/dL Hct 27.2 L (37.2-50.0) % MCH 26.3 L (27.0-32.0) pg MCHC 30.9 L (32.0-37.0) d/dL RDW 16.5 H (11.5-14.5) % MPV 9.2 L (9.5-12.2) FL Lymphocytes # (Manual) 0.49 L (0.90-5.00) X 10*3/uL Eosinophils # (Manual) 0 L (0.04-0.35) X 10*3/uL Hypochromasia (manual) 2+ A Microcytosis (manual) 2+ A Elliptocytes 2+ A BUN/Creatinine Ratio 11.50 L (12.00-20.00) Ratio Glucose 145 H (70-110) mg/dL
[2023-03-20] MEDS: ATORVASTATIN 80 MG TAB PO SCH (20:43)
[2023-03-20] MEDS: tiZANidine 4 MG TAB PO SCH (20:43)
[2023-03-21] MEDS: methylPREDNISolone SOD SUCCI 40 MG/ML 1 ML VIAL IV SCH ×3 (05:05→21:04)
[2023-03-21] MEDS: SODIUM CHLORIDE 0.9% 1,000 ML IV SCH ×2 (05:46→21:20)
[2023-03-21] MEDS: METOPROLOL SUCCINATE (ER) 25 MG TAB.ER.24H PO SCH (07:40)
[2023-03-21] MEDS: ESCITALOPRAM 10 MG TAB PO SCH (07:40)
[2023-03-21] MEDS: PANTOPRAZOLE 40 MG/10 ML VIAL IVP SCH ×2 (07:49→21:04)
[2023-03-21] MEDS: MORPHINE SULFATE 4 MG/ML SYRINGE IV PRN ×2 (07:49→21:04)
[2023-03-21] MEDS: MESALAMINE 1.2 GM PO SCH (07:54)
--- NOTE | 2023-03-21 08:44 | PN ---
PROGRESS NOTE DATE OF SERVICE: 03/20/2023 SUBJECTIVE: This 52-year-old woman was admitted with ulcerative colitis and some GI bleeding, scheduled to have the endoscopy tomorrow by Dr. Radha caldwell. OBJECTIVE: VITAL SIGNS: Pulse 88, blood pressure 116/60, and respirations 16. CHEST: Clear to auscultation. ABDOMEN: Soft, mild discomfort. No guarding, no rigidity. LABORATORY DATA: Hemoglobin 8.4, rest of the labs are noted. ASSESSMENT: 1. Abdominal pain, bleeding with acute ulcerative colitis exacerbation. 2. Rectal bleed. 3. Hypokalemia. 4. Hypertension. 5. Multiple medical issues. RECOMMENDATIONS: Recommended to continue current management, continue symptomatic treatment. Otherwise, the patient is on IV steroids. I would recommend repeat labs. Closely follow with surgery, possible colonoscopy. Further recommendations to follow. MMJYOTHIL / IJN: [id number] / MTDD
[2023-03-21] MEDS ORDERED: NON FORMULARY DRUG (Omeprazole 20 MG Capsule.Dr) PO SCH (09:00)
[2023-03-21 10:59] LABS: HCT 27.4 % (37.2-50.0); HGB 8.1 d/dL (12.0-17.0); MCH 25.6 pg (27.0-32.0); MCHC 29.6 d/dL (32.0-37.0); MCV 86.7 FL (80.0-97.0); Mean Platelet Volume 9.4 FL (9.5-12.2); NRBC Per 100 WBC 0 X 10*3/uL (0.00-0.01); Platelet Count 315 X 10*3/uL (140-440); RBC 3.16 X 10*6/uL (4.10-5.60); RDW 16.9 % (11.5-14.5); WBC 6.74 X 10*3/uL (4.50-10.00)
[2023-03-21 11:07] LABS: Blood Urea Nitrogen 11.7 mg/dL (9.0-27.0); Calcium 8.9 mg/dL (8.7-10.3); Chloride 107 mmol/L (96-109); Glucose 142 mg/dL (70-110); Potassium 4.9 mmol/L (3.5-5.5); Sodium 139 mmol/L (135-145)
[2023-03-21 12:17] LABS: Basophils # (A) 0.04 X 10*3/uL (0.00-0.10); Basophils % (A) 0.6 %; Eosinophils # (A) 0 X 10*3/uL (0.04-0.35); Eosinophils % (A) 0 %; Lymphocytes # (A) 0.65 X 10*3/uL (0.90-5.00); Lymphocytes % (A) 9.6 %; Monocytes # (A) 0.81 X 10*3/uL (0.20-1.00); Neutrophils # (A) 5.05 X 10*3/uL (1.80-7.70); RBC Morphology Normal (Normal)
--- NOTE | 2023-03-21 14:27 | P.PN ---
Subjective Progress Note Date: 03/21/23 CHIEF COMPLAINT: Abdominal pain HISTORY OF PRESENT ILLNESS: Patient being treated for ulcerative colitis. She is on steroids. Patient reports decrease in the frequency of diarrhea. Her stools She ihappened last blood in them. She does complain of lower abdominal pain. Patient initially scheduled for colonoscopy on 03/21/[address] Lara. Brilenta placed on hold. PHYSICAL EXAM: VITAL SIGNS: Reviewed GENERAL: Well-developed in no acute distress. HEENT: No sclera icterus. Extraocular movements grossly intact. Moist buccal mucosa. Head is atraumatic, normocephalic. Hears conversational speech. No nasal drainage. NECK: Supple without lymphadenopathy. CHEST: Non-labored respirations and equal bilateral excursions. CARDIOVASCULAR: Palpable 2+ radial pulses. ABDOMEN: Soft. Nondistended. MUSCULOSKELETAL: No clubbing or cyanosis. NEUROLOGIC: No focal or lateralizing signs. Cranial nerves II through XII grossly intact. PSYCH: Appropriate affect. Alert and oriented to person, place and time. SKIN: Well perfused. Good skin turgor. ASSESSMENT: 1. Ulcerative colitis exacerbation 2. Acute GI bleed due to ulcerative colitis exacerbation PLAN: -Discussed case with GI service. GI service not available this week. Dr. Garcia recommends follow-up appointment in 1-2 weeks and at that time they can reschedule colonoscopy when she is feeling better and patient needs to be off of the Brilenta for 5 days -Continue IV steroids -Continue supportive care -Advance diet to full liquids Physician State Pilot note has been reviewed by physician. Signing provider agrees with the documented findings, assessment, and plan of care. Objective - Vital Signs Vital signs: Vital Signs Temp 98.2 F 03/21/23 13:20 Pulse 58 L 03/21/23 13:20 Resp 17 03/21/23 13:20 BP 121/68 03/21/23 13:20 Pulse Ox 98 03/21/23 13:20 FiO2 Intake & Output 03/20/23 03/21/23 03/21/23 18:59 06:59 18:59 Other: Voiding Method Toilet Toilet # Voids 3 - Labs CBC & Chem 7: 03/21/23 03:50 03/21/23 03:50 Labs: Abnormal Lab Results - Last 24 Hours (Table) 03/21/23 03/21/23 Range/Units 03:50 03:50 RBC 3.16 L (4.10-5.60) X 10*6/uL Hgb 8.1 L (12.0-17.0) d/dL Hct 27.4 L (37.2-50.0) % MCH 25.6 L (27.0-32.0) pg MCHC 29.6 L (32.0-37.0) d/dL RDW 16.9 H (11.5-14.5) % MPV 9.4 L (9.5-12.2) FL Lymphocytes # 0.65 L (0.90-5.00) X 10*3/uL Eosinophils # 0 L (0.04-0.35) X 10*3/uL Glucose 142 H (70-110) mg/dL
--- NOTE | 2023-03-21 20:17 | PN ---
PROGRESS NOTE DATE OF SERVICE: 03/21/2023 SUBJECTIVE: This is a 52-year-old woman, who was admitted with abdominal pain with acute ulcerative colitis. She still has some diarrhea. No more bleeding is noted. No chest pain or palpitation. OBJECTIVE: VITAL SIGNS: Pulse is 58, blood pressure 120/60, respirations 17. CHEST: Clear. CARDIOVASCULAR: S1 and S2. ABDOMEN: Soft and nontender. LABORATORY DATA: Hemoglobin 8.1. ASSESSMENT: 1. Abdominal pain with bleeding with acute ulcerative colitis exacerbation. 2. Rectal bleeding. 3. Hypokalemia. 4. Hypertension. 5. Multiple medical issues. RECOMMENDATIONS: Recommend to continue current medications. Continue symptomatic treatment. Otherwise, repeat labs. Closely follow. Further recommendations to follow. MMODL / IJN: [id number] /
[2023-03-21] MEDS: tiZANidine 4 MG TAB PO SCH (21:04)
[2023-03-21] MEDS: ATORVASTATIN 80 MG TAB PO SCH (21:04)
[2023-03-22] MEDS: methylPREDNISolone SOD SUCCI 40 MG/ML 1 ML VIAL IV SCH ×2 (04:54→13:49)
[2023-03-22] MEDS: SODIUM CHLORIDE 0.9% 1,000 ML IV SCH (04:59)
[2023-03-22 08:22] VITALS: BP 137/79; PULSE 69; RESP 15; TEMP 98.1
[2023-03-22] MEDS: METOPROLOL SUCCINATE (ER) 25 MG TAB.ER.24H PO SCH (08:25)
[2023-03-22] MEDS: PANTOPRAZOLE 40 MG/10 ML VIAL IVP SCH (08:26)
[2023-03-22] MEDS: ESCITALOPRAM 10 MG TAB PO SCH (08:26)
[2023-03-22 09:30] LABS: HCT 27.8 % (37.2-50.0); HGB 8.3 d/dL (12.0-17.0); MCH 25.5 pg (27.0-32.0); MCHC 29.9 d/dL (32.0-37.0); MCV 85.3 FL (80.0-97.0); Mean Platelet Volume 9.2 FL (9.5-12.2); NRBC Per 100 WBC 0.03 X 10*3/uL (0.00-0.01); Platelet Count 296 X 10*3/uL (140-440); RBC 3.26 X 10*6/uL (4.10-5.60); RDW 16.6 % (11.5-14.5); WBC 5.66 X 10*3/uL (4.50-10.00)
[2023-03-22 10:07] LABS: Basophils # (M) 0 X 10*3/uL (0.00-0.10); Eosinophils # (M) 0 X 10*3/uL (0.04-0.35); Lymphocytes # (M) 0.68 X 10*3/uL (0.90-5.00); Metamyelocytes % 3 % (0-0); Monocytes # (M) 0.91 X 10*3/uL (0.20-1.00); Myelocytes % 3 % (0-0); Neutrophils # (M) 3.74 X 10*3/uL (1.80-7.70); Neutrophils % (M) 66 %; RBC Morphology Normal (Normal)
[2023-03-22] MEDS: MESALAMINE 1.2 GM PO SCH (10:49)
[2023-03-22 11:05] LABS: BUN/Creat Ratio 15.11 Ratio (12.00-20.00); Blood Urea Nitrogen 13.6 mg/dL (9.0-27.0); Calcium 8.6 mg/dL (8.7-10.3); Carbon Dioxide 21.3 mmol/L (21.6-31.8); Chloride 105 mmol/L (96-109); Glucose 163 mg/dL (70-110); Potassium 4.7 mmol/L (3.5-5.5); Sodium 139 mmol/L (135-145)
[2023-03-22] MEDS ORDERED: ACETAMINOPHEN TAB 325 MG TAB PO PRN (12:26)
--- NOTE | 2023-03-22 14:57 | P.PN ---
Subjective Progress Note Date: 03/22/23 CHIEF COMPLAINT: Abdominal pain HISTORY OF PRESENT ILLNESS: Patient being treated for ulcerative colitis. Patient reports no further blood in her stools. Abdominal pain has improved. Medicine service planning discharge today. She is tolerating diet. Afebrile. WBC 5.66 Hgb 8.3 PHYSICAL EXAM: VITAL SIGNS: Reviewed GENERAL: Well-developed in no acute distress. HEENT: No sclera icterus. Extraocular movements grossly intact. Moist buccal mucosa. Head is atraumatic, normocephalic. Hears conversational speech. No nasal drainage. NECK: Supple without lymphadenopathy. CHEST: Non-labored respirations and equal bilateral excursions. CARDIOVASCULAR: Palpable 2+ radial pulses. ABDOMEN: Soft. Nondistended. MUSCULOSKELETAL: No clubbing or cyanosis. NEUROLOGIC: No focal or lateralizing signs. Cranial nerves II through XII grossly intact. PSYCH: Appropriate affect. Alert and oriented to person, place and time. SKIN: Well perfused. Good skin turgor. ASSESSMENT: 1. Ulcerative colitis exacerbation 2. Acute GI bleed due to ulcerative colitis exacerbation PLAN: -Discussed case with GI service. GI service not available this week. Dr. Garcia recommends follow-up appointment in 1-2 weeks and at that time they can reschedule colonoscopy when she is feeling better and patient needs to be off of the Brilenta for 5 days -Continue prednisone taper at discharge -Continue supportive care -Continue full liquid diet and advance as tolerated Physician Oven Baker note has been reviewed by physician. Signing provider agrees with the documented findings, assessment, and plan of care. Objective - Vital Signs Vital signs: Vital Signs Temp 98.1 F 03/22/23 07:04 Pulse 69 03/22/23 07:04 Resp 15 03/22/23 07:04 BP 137/79 03/22/23 07:04 Pulse Ox 95 03/22/23 07:04 FiO2 Intake & Output 03/21/23 03/22/23 03/22/23 18:59 06:59 18:59 Intake Total 1080 Balance 1080 Intake: Oral 1080 Other: Voiding Method Toilet # Voids 3 2 - Labs CBC & Chem 7: 03/22/23 04:43 03/22/23 04:43 Labs: Abnormal Lab Results - Last 24 Hours (Table) 03/22/23 03/22/23 Range/Units 04:43 04:43 RBC 3.26 L (4.10-5.60) X 10*6/uL Hgb 8.3 L (12.0-17.0) d/dL Hct 27.8 L (37.2-50.0) % MCH 25.5 L (27.0-32.0) pg MCHC 29.9 L (32.0-37.0) d/dL RDW 16.6 H (11.5-14.5) % MPV 9.2 L (9.5-12.2) FL Lymphocytes # (Manual) 0.68 L (0.90-5.00) X 10*3/uL Eosinophils # (Manual) 0 L (0.04-0.35) X 10*3/uL NRBC/100 WBC Diff 0.03 H (0.00-0.01) X 10*3/uL Carbon Dioxide 21.3 L (21.6-31.8) mmol/L Anion Gap 12.70 H (4.00-12.00) mmol/L Glucose 163 H (70-110) mg/dL Calcium 8.6 L (8.7-10.3) mg/dL
--- NOTE | 2023-03-23 13:37 | P.DS ---
Providers Date of admission: 03/18/23 21:18 Expected date of discharge: 03/22/23 Attending physician: Katlyn Goodwin MD Consults: 03/19/23 13:04 Consult Physician Routine Consulting Provider: Yu Zheng Consult Reason/Comments: Rectal bleed/anemia Do you want consulting provider notified?: Yes 03/20/23 07:01 Consult Physician Routine Consulting Provider: Yu Garcia Consult Reason/Comments: Ulcerative colitis scope for 03/21 Do you want consulting provider notified?: Yes Primary care physician: Vishnu Avelar [facility] Course: Final diagnosis Abdominal pain with rectal bleeding with acute ulcerative colitis exacerbation Rectal bleeding Hypokalemia, improved Hypertension history Hyperlipidemia History of thyroid disorder Obesity with a BMI of 36.6 GI prophylaxis DVT prophylaxis Full code Discharge disposition Patient is being discharged in a stable condition with guarded prognosis to home. Patient will follow-up with in the outpatient setting upon discharge. Patient is to continue with hemodialysis as scheduled. Total time taken is greater than 35 minutes. Hospital course This is a 52-year-old female who was recently admitted with abdominal pain found to have acute ulcerative colitis. Patient reports some loose stools although no bleeding noted. Patient is continued on symptomatic treatment and being advanced on diet with no plans for colonoscopy at this time. Patient to follow- up with GI outpatient to reschedule colonoscopy in the next few weeks. Hemoglobin is stable above 8 and recommend outpatient labs in the next few days to monitor kidney functions and hemoglobin. Patient has been cleared by consultations for discharge. Please refer to consultation notes for further HPI. Currently no reports of chest pain, shortness of breath, or palpitations. Patient is afebrile. No reports of nausea or vomiting and patient is tolerating diet. Patient will be discharged home today. Guarded prognosis. Physical exam: Gen: This is a 52-year-old female who is awake, alert and oriented 3, well- developed, well-nourished, obese HEENT: Head is atraumatic, normocephalic. Pupils equal, round. Sclerae is anicteric. NECK: Supple. No JVD. No lymphadenopathy. No thyromegaly. LUNGS: Diminished breath sounds bilaterally with no wheezes or rhonchi. No intercostal retractions. HEART: S1, S2 are muffled ABDOMEN: Soft. Obese. Bowel sounds are present. No masses. No tenderness. EXTREMITIES: No pedal edema. No calf tenderness. NEUROLOGICAL: Patient is awake, alert and oriented x3. Cranial nerves 2 through 12 are grossly intact. Please refer to medication reconciliation sheet for a list of medications. The impression and plan of care has been dictated by Mariajose Rincon, Nurse Practitioner as directed. Dr. Kashmir MD I have performed a history and examination and MDM of this patient, discussed the same with the dictator, and agree with the dictator's assessment and plan as written ,documented as a scribe. Based on total visit time, I have performed more than 50% of the visit. Patient Condition at Discharge: Stable Plan - Discharge Summary Discharge Rx Participant: Yes New Discharge Prescriptions: New Pantoprazole [Protonix] 40 mg PO DAILY #30 tab predniSONE [Deltasone] 60 mg PO DAILY #70 tab Continue Nitroglycerin Sl Tabs [Nitrostat] 0.4 mg SL Q5M PRN PRN Reason: Chest Pain Escitalopram [Lexapro] 10 mg PO DAILY tiZANidine [Zanaflex] 4 mg PO HS Atorvastatin [Lipitor] 80 mg PO HS #90 tab Omeprazole [PriLOSEC] 20 mg PO DAILY Rimegepant Sulfate [Nurtec Odt] 75 mg PO BID PRN PRN Reason: Migraine Headache Metoprolol Succinate [Metoprolol Succinate ER] 25 mg PO DAILY Mesalamine 4.8 gm PO DAILY Discontinued Aspirin [Adult Low Dose Aspirin EC] 81 mg PO DAILY Ticagrelor [Brilinta] 90 mg PO BID #60 tab Ibuprofen [Motrin] 600 mg PO TID-W/MEALS PRN PRN Reason: Pain Or Fever > 100.5 Discharge Medication List Escitalopram [Lexapro] 10 mg PO DAILY 05/06/22 [History] Mesalamine 4.8 gm PO DAILY 05/06/22 [History] Metoprolol Succinate [Metoprolol Succinate ER] 25 mg PO DAILY 05/06/22 [History] Nitroglycerin Sl Tabs [Nitrostat] 0.4 mg SL Q5M PRN 05/06/22 [History] Omeprazole [PriLOSEC] 20 mg PO DAILY 05/06/22 [History] Rimegepant Sulfate [Nurtec Odt] 75 mg PO BID PRN 05/06/22 [History] tiZANidine [Zanaflex] 4 mg PO HS 05/06/22 [History] Atorvastatin [Lipitor] 80 mg PO HS #90 tab 03/22/23 [Rx] Pantoprazole [Protonix] 40 mg PO DAILY #30 tab 03/22/23 [Rx] predniSONE [Deltasone] 60 mg PO DAILY #70 tab 03/22/23 [Rx] Follow up Appointment(s)/Referral(s): Yu Garcia MD [STAFF PHYSICIAN] - 1 Week (office not answering Please call to schedule appointment ) Vishnu Avelar DO [Primary Care Provider] - 03/29/23 1:45 pm Ambulatory/Diagnostic Orders: Complete Blood Count w/diff [LAB.AMB] Time Frame: 3 Days, Location: None Selected Patient Instructions/Handouts: Ulcerative Colitis (DC) Activity/Diet/Wound Care/Special Instructions: Activity Limited until follow-up Follow-up primary care provider and discharge Follow-up with GI outpatient for colonoscopy Continue medications as prescribed Continue to hold Brilinta and aspirin until follow-up Continue full liquid diet as instructed until follow-up Recommend repeat labs Discharge Disposition: HOME SELF-CARE
== END 2023-03-22 15:28 | disposition home or self-care (01) | DRG 245 ==
LOC: EC 16:54 → 4SSUR 21:18
PROVIDERS: ADMIT Internal Medicine; ATTEND Internal Medicine
DX: K51.811 Other ulcerative colitis with rectal bleeding (principal); E87.6 Hypokalemia; I25.119 Atherosclerotic heart disease of native coronary artery with unspecified angina pectoris; I10 Essential (primary) hypertension; Z79.899 Other long term (current) drug therapy; I25.10 Atherosclerotic heart disease of native coronary artery without angina pectoris; F17.210 Nicotine dependence, cigarettes, uncomplicated; D50.0 Iron deficiency anemia secondary to blood loss (chronic); F32.A Depression, unspecified; E78.5 Hyperlipidemia, unspecified; M19.90 Unspecified osteoarthritis, unspecified site; N39.0 Urinary tract infection, site not specified; Z95.5 Presence of coronary angioplasty implant and graft; M72.2 Plantar fascial fibromatosis; G43.909 Migraine, unspecified, not intractable, without status migrainosus; R11.0 Nausea; K21.9 Gastro-esophageal reflux disease without esophagitis; D69.6 Thrombocytopenia, unspecified; E66.9 Obesity, unspecified; F41.9 Anxiety disorder, unspecified; Z68.36 Body mass index [BMI] 36.0-36.9, adult; Z79.02 Long term (current) use of antithrombotics/antiplatelets; Z79.82 Long term (current) use of aspirin; Z91.81 History of falling; Z91.048 Other nonmedicinal substance allergy status
CPT/HCPCS: 36415; 74177; 80048; 80053; 83690; 85025; 85610; 85730; 86140; 86850; 86900; 86901; 93005; 96361; 96374; 96375; 96376; 99285

== ENCOUNTER → 2023-04-05 | Outpatient (CLI) | payer OTHER ==
--- NOTE | 2023-04-06 08:13 | MM ---
Reason for Exam: Screening (asymptomatic). Last mammogram was performed 4 year(s) and 1 month(s) ago. Patient History: Menarche at age 11. First Full-Term at age 19. Perimenopausal. 1993, Benign Excisional Biopsy on the left side. Risk Values: Tashia 5 year model risk: 1.0%. NCI Lifetime model risk: 8.1%. Prior Study Comparison: 01/29/2009 Bilateral Screening Mammogram, [facility]. 02/08/2012 Bilateral Screening Mammogram, [facility]. 02/13/2019 Bilateral Screening Mammogram, [facility]. Tissue Density: There are scattered fibroglandular densities. Findings: Analyzed By CAD. There is no suspicious group of microcalcifications or new suspicious mass in either breast. Benign calcifications within both breasts. Overall Assessment: Benign, BI-RAD 2 Management: Screening Mammogram of both breasts in 1 year. A clinical breast exam by your physician is recommended on an annual basis and results should be correlated with mammographic findings. Note on Tashia scores and lifetime risk: 1. A Tashia score greater than 3% is considered moderate risk. If this is the case, consider specialist referral to assess eligibility for a risk reducing agent. If overall lifetime risk for the development of breast cancer is 20% or higher, the patient may qualify for future screening with alternating mammogram and breast MRI. Electronically signed and approved by: You Lyman D.O.
== END | disposition home or self-care (01) ==
LOC: RADMAMWWP 12:43
PROVIDERS: ATTEND Family Medicine
DX: Z12.31 Encounter for screening mammogram for malignant neoplasm of breast (principal)
CPT/HCPCS: 77067

== ENCOUNTER 2023-04-21 12:22 | Day surgery (SDC) | payer OTHER ==
[2023-04-20 08:49] VITALS: BMI 36.6
[2023-04-21 13:29] VITALS: RESP 16; TEMP 96.5
[2023-04-21] MEDS ORDERED: LIDOCAINE 1% (10MG/ML) FOR IV START INTRADERMA ONE (13:29)
[2023-04-21] MEDS: LACTATED RINGERS 1,000 ML IV SCH ×2 (13:29→14:18)
[2023-04-21 13:45] LABS: Glucose,Whole Blood 82 mg/dL (70-110)
[2023-04-21] MEDS ORDERED: PROPOFOL 10 MG/ML 20 ML VIAL IV ONE (14:20)
[2023-04-21 15:05] VITALS: BP 151/73; PULSE 83
--- NOTE | 2023-04-21 15:17 | P.PCN ---
Date of Procedure: 04/21/23 Procedure(s) Performed: BRIEF HISTORY: Patient is a 52-year-old pleasant white female scheduled for an elective colonoscopy as a part of evaluation of long-standing history of ulcerative colitis diagnosed in 1999.. Her last colonoscopy 2 years ago revealed mild active colitis. His been maintained on mesalamine 4.8 g daily and in December of this year had a flareup and was treated with course of prednisone. She is scheduled for a surveillance colonoscopy today. PROCEDURE PERFORMED: Colonoscopy with random biopsies. PREOPERATIVE DIAGNOSIS: History of ulcerative colitis diagnosed in 2013. IV sedation per Anesthesia. PROCEDURE: After informed consent was obtained, the patient, was brought into the endoscopy unit. IV sedation was administered by Anesthesia under continuous monitoring. Digital rectal examination was normal. Initially the Olympus CF-160 flexible video colonoscope was then inserted in the rectum, gradually advanced into the cecum without any difficulty. Careful examination was performed as the scope was gradually being withdrawn. Ileocecal valve and the appendiceal orifice were visualized and appeared normal. Prep was excellent. Terminal ileum was intubated and 20 cm visualized and appeared normal. Mucosa of the cecum, ascending colon, transverse colon, descending colon, sigmoid colon, and has diffuse colitis with mucosal erythema friability granularity, multiple pseudopolyps and some narrowing of the lumen especially in the descending colon CONSISTENT with severe active colitis. Multiple biopsies were done from this area. The rectum appeared normal. Retroflexion was performed in the rectum and no lesions were seen. The patient tolerated the procedure well. IMPRESSION: Diffuse active colitis involving the entire colon with sparing of the rectum with mucosal erythema, friability, multiple pseudopolyps and ulcerations consistent with active colitis, status post multiple biopsies to evaluate for Crohn's colitis Appearing terminal ileum. RECOMMENDATIONS: Findings of this examination were discussed with the patient as well as a family. She was advised to follow with the biopsies as. She'll be seen in office in one to 2 weeks and will discuss Biologics as a part of treatment of inflammatory bowel disease..
== END 2023-04-21 15:30 | disposition home or self-care (01) ==
LOC: ORWHC2ENDO 12:22
PROVIDERS: ATTEND Internal Medicine Gastroenterology
DX: K51.90 Ulcerative colitis, unspecified, without complications (principal); K21.9 Gastro-esophageal reflux disease without esophagitis; I25.10 Atherosclerotic heart disease of native coronary artery without angina pectoris; E07.9 Disorder of thyroid, unspecified; E78.5 Hyperlipidemia, unspecified; M19.90 Unspecified osteoarthritis, unspecified site; G43.909 Migraine, unspecified, not intractable, without status migrainosus; F17.210 Nicotine dependence, cigarettes, uncomplicated; Z79.84 Long term (current) use of oral hypoglycemic drugs; Z79.899 Other long term (current) drug therapy; Z79.811 Long term (current) use of aromatase inhibitors; Z79.52 Long term (current) use of systemic steroids; Z79.82 Long term (current) use of aspirin
CPT/HCPCS: 45380; J2704; 88305

== ENCOUNTER 2023-04-27 01:15 | Inpatient (IN) | payer OTHER ==
[2023-04-27 01:52] LABS: Anisocytosis Slight; Basophils % (A) 0 %; Eosinophils % (A) 0 %; HCT 30.3 % (34.0-46.0); HGB 9.2 gm/dL (11.4-16.0); Hypochromasia Marked; Lymphocytes # (A) 0.5 k/uL (1.0-4.8); Lymphocytes % (A) 9 %; MCHC 30.2 g/dL (31.0-37.0); MCV 82.8 fL (80.0-100.0); Mean Platelet Volume 7.6; Monocytes # (A) 0.5 k/uL (0-1.0); Monocytes % (A) 9 %; Neutrophils # (A) 4.9 k/uL (1.3-7.7); Neutrophils % (A) 81 %; Platelet Count 398 k/uL (150-450); Poikilocytosis Slight; RBC 3.66 m/uL (3.80-5.40); WBC 6.1 k/uL (3.8-10.6)
[2023-04-27 02:08] LABS: INR 0.9 (<1.2); Prothrombin Time 9.6 sec (9.0-12.0)
[2023-04-27 02:09] LABS: ALT 19 U/L (4-34); AST 22 U/L (14-36); African American GFR (CKD) 74 (>60 ml/min/1.73 sqM); Albumin 3.5 g/dL (3.5-5.0); Alkaline Phosphatase 130 U/L (38-126); Anion Gap 14 mmol/L; Blood Urea Nitrogen 19 mg/dL (7-17); Calcium 8.9 mg/dL (8.4-10.2); Carbon Dioxide 17 mmol/L (22-30); Chloride 105 mmol/L (98-107); Glucose 288 mg/dL (74-99); Magnesium 1.8 mg/dL (1.6-2.3); Non-African American GFR(CKD) 64 (>60 ml/min/1.73 sqM); Sodium 136 mmol/L (137-145); Total Bilirubin 0.4 mg/dL (0.2-1.3); Total Protein 6.3 g/dL (6.3-8.2)
[2023-04-27 02:10] LABS: Partial Thromboplastin Time 21.9 sec (22.0-30.0)
--- NOTE | 2023-04-27 02:58 | ED ---
Chest Pain HPI - General Source: patient Mode of arrival: wheelchair Limitations: no limitations <Marlon Sanchez - Last Filed: 04/27/23 02:57> <Constantino Ortiz - Last Filed: 04/27/23 05:14> - General Chief Complaint: Chest Pain Stated Complaint: Chest Pain Time Seen by Provider: 04/27/23 01:33 - History of Present Illness Initial Comments: 52-year-old female presented chief complaint of chest pain that started tonight. No shortness of breath. (Marlon Sanchez) Dictation was produced using [employer] dictation software. please excuse any grammatical, word or spelling errors. Chief Complaint: 52-year-old female presents to the ER for chest pain History of Present Illness: 52-year-old female she has past medical history of coronary artery disease. Patient states that today she experience chest pain. States this pressure. Initially it went down her left arm however it resolved. She still however has some mild chest symptoms at the bedside. Patient states that she did for nauseated with the chest pain occurred earlier. Patient is otherwise feeling well. The ROS documented in this emergency department record has been reviewed and confirmed by me. Those systems with pertinent positive or negative responses have been documented in the HPI. All other systems are other negative and/or noncontributory. (Constantino Ortiz) - Related Data Home Medications Medication Instructions Recorded Confirmed Escitalopram [Lexapro] 10 mg PO DAILY 05/06/22 04/20/23 Mesalamine 4.8 gm PO DAILY 05/06/22 04/20/23 Metoprolol Succinate [Metoprolol 25 mg PO DAILY 05/06/22 04/20/23 Succinate ER] Nitroglycerin Sl Tabs [Nitrostat] 0.4 mg SL Q5M PRN 05/06/22 04/20/23 Omeprazole [PriLOSEC] 20 mg PO DAILY 05/06/22 04/20/23 Rimegepant Sulfate [Nurtec Odt] 75 mg PO BID PRN 05/06/22 04/20/23 tiZANidine [Zanaflex] 4 mg PO HS 05/06/22 04/20/23 Aspirin EC [Ecotrin Low Dose] 81 mg PO DAILY 04/20/23 04/20/23 Ticagrelor [Brilinta] 90 mg PO BID 04/20/23 04/20/23 predniSONE [Deltasone] See Taper PO DAILY 04/20/23 04/20/23 Previous Rx's Medication Instructions Recorded Atorvastatin [Lipitor] 80 mg PO HS #90 tab 03/22/23 Pantoprazole [Protonix] 40 mg PO DAILY #30 tab 03/22/23 Allergies Allergy/AdvReac Type Severity Reaction Status Date / Time wool Allergy Rash/Hives Verified 04/21/23 13:24 Review of Systems ROS Other: All systems not noted in ROS Statement are negative. <Marlon Sanchez - Last Filed: 04/27/23 02:57> ROS Other: All systems not noted in ROS Statement are negative. <Constantino Ortiz - Last Filed: 04/27/23 05:14> ROS Statement: Those systems with pertinent positive or pertinent negative responses have been documented in the HPI. Past Medical History Past Medical History: Chest Pain / Angina, GI Bleed, Hyperlipidemia, Osteoarthritis (OA), Thyroid Disorder Additional Past Medical History / Comment(s): See Dr Edward's H&P. . Plantar Fasciitis. Colitis. Thyroid nodule. Broke neck 3 yrs ago after falling down stairs - " Have a couple of cracks in my neck." Migraines. LT THUMB TENDONITIS, History of Any Multi-Drug Resistant Organisms: None Reported Past Surgical History: Section, Heart Catheterization With Stent, Orthopedic Surgery Additional Past Surgical History / Comment(s): Left arm surgery. Dental work. Past Anesthesia/Blood Transfusion Reactions: No Reported Reaction, Family History of Problems w/ Anesthesia Additional Past Anesthesia/Blood Transfusion Reaction / Comment(s): Mom PONV. Date of Last Stent Placement:: apr Past Psychological History: Depression Smoking Status: Current some day smoker - Past Family History Mother Family Medical History: AICD/Pacemaker, Cancer Additional Family Medical History / Comment(s): Uterine cancer. <Marlon Sanchez - Last Filed: 04/27/23 02:57> General Exam Limitations: no limitations <Marlon Sanchez - Last Filed: 04/27/23 02:57> <Constantino Ortiz - Last Filed: 04/27/23 05:14> - General Exam Comments Initial Comments: Visual Physical Exam Vital signs reviewed General: Well-appearing, nontoxic, no acute distress. Head: Normocephalic, atraumatic Eyes: PERRLA, EOMI ENT: Airway patent Chest: Nonlabored breathing Skin: No visual rash, normal skin tone Neuro: Alert and oriented 3 Musculoskeletal: No gross abnormalities (Marlon Sanchez) PHYSICAL EXAM: General Impression: Alert and oriented x3, not in acute distress HEENT: Normocephalic atraumatic, extra-ocular movements intact, pupils equal and reactive to light bilaterally, mucous membranes moist. Cardiovascular: Heart regular rate and rhythm Chest: Able to complete full sentences, no retractions, no tachypnea Abdomen: abdomen soft, non-tender, non-distended, no organomegaly Musculoskeletal: Pulses present and equal in all extremities, no peripheral edema Motor: no focal deficits noted Neurological: CN II-XII grossly intact, no focal motor or sensory deficits noted Skin: Intact with no visualized rashes Psych: Normal affect and mood (Constantino Ortiz) Course Vital Signs 04/27/23 04/27/23 01:18 04:28 Temperature 97.6 F Pulse Rate 125 H 103 H Respiratory 18 18 Rate Blood Pressure 188/109 147/84 O2 Sat by Pulse 100 97 Oximetry Chest Pain MDM <Constantino Ortiz - Last Filed: 04/27/23 05:14> - MDM Was pt. sent in by a medical professional or institution (JAMAAL Lau, MACHINE FELLER, urgent care, hospital, or halfway...) When possible be specific @ -[No] Did you speak to anyone other than the patient for history (EMS, parent, family, police, friend...)? What history was obtained from this source @ -[No] Did you review nursing and triage notes (agree or disagree)? Why? @ -[I reviewed and agree with nursing and triage notes] Were old charts reviewed (outside hosp., previous admission, EMS record, old EKG, old radiological studies, urgent care reports/EKG's, halfway records)? Report findings @ -[No old charts were reviewed] Differential Diagnosis (chest pain, altered mental status, abdominal pain women, abdominal pain men, vaginal bleeding, musculoskeletal, weakness, fever, dyspnea, syncope, headache, dizziness, GI bleed, back pain, seizure, CVA, palpatations, mental health)? @ -Differential Chest Pain: Stable Angina, Unstable Angina, STEMI, NSTEMI Aortic Dissection, Pneumothorax, Musculoskeletal, Esophageal Spasm GERD, Cholecystitis, Pancreatitis, Zoster, this is not meant to be an all-inclusive list. EKG interpreted by me (3pts min.). @ -My EKG interpretation: Ventricular rate 116, sinus tachycardia, QRS 70, QTC 388. no QTC prolongation, no ST or T-wave changes noted. Overall, this EKG is unremarkable X-rays interpreted by me (1pt min.). @ -Chest x-ray was unremarkable CT interpreted by me (1pt min.). @ -[None done] U/S interpreted by me (1pt. min.). @ -[None done] What testing was considered but not performed or refused? (CT, X-rays, U/S, labs)? Why? @ -[None] What meds were considered but not given or refused? Why? @ -[None] Did you discuss the management of the patient with other professionals (professionals i.e. , PA, MACHINE FELLER, lab, RT, psych nurse, criminal justice social worker, software lead, teacher, banking officer, counseling case manager)? Give summary @ -discussed with hospitalist for admission Was smoking cessation discussed for >3mins.? @ -[No] Was critical care preformed (if so, how long)? @ -[No] Were there social determinants of health that impacted care today? How? (Homelessness, low income, unemployed, alcoholism, drug addiction, transportation, low edu. Level, literacy, decrease access to med. care, halfway, rehab)? @ -[No] Was there de-escalation of care discussed even if they declined (Discuss DNR or withdrawal of care, Hospice)? DNR status @ -[No] What co-morbidities impacted this encounter? (DM, HTN, Smoking, COPD, CAD, Cancer, CVA, ARF, Chemo, Hep., AIDS, mental health diagnosis, sleep apnea, morbid obesity)? @ -[None] Was patient admitted / discharged? Hospital course, mention meds given and route, prescriptions, significant lab abnormalities, going to OR and other pertinent info. @ -52-year-old female with known history of coronary artery disease presents to the ER for chest pain concerning for acute coronary syndrome. Patient feels close to baseline at the bedside. She does report very mild chest symptoms at the bedside. Laboratory evaluation obtained. He was able 9.2. D-dimer 0.55, metabolic panel shows mild acidosis. Troponin 0.023. Patient given aspirin and nitro. Patient be admitted Undiagnosed new problem with uncertain prognosis? @ -[No] Drug Therapy requiring intensive monitoring for toxicity (Heparin, Nitro, Insulin, Cardizem)? @ -[No] Were any procedures done? @ -[No] Diagnosis/symptom? Acute, or Chronic, or Acute on Chronic? Uncomplicated (without systemic symptoms) or Complicated (systemic symptoms)? @ -Chest pain Side effects of treatment? @ -[No] Exacerbation, Progression, or Severe Exacerbation? @ -[No] Poses a threat to life or bodily function? How? (Chest pain, [place], OR, pneumonia, PE, COPD, DKA, ARF, appy, cholecystitis, CVA, Diverticulitis, Homicidal, Suicidal, threat to staff... and all critical care pts) @ -Yes (Constantino Ortiz) Disposition <Marlon Sanchez - Last Filed: 04/27/23 02:57> Decision Time: 05:14 <Constantino Ortiz - Last Filed: 04/27/23 05:14> Clinical Impression: Chest pain Disposition[facility] Condition: Fair Referrals: Vishnu Avelar DO [Primary Care Provider] - 1-2 days
--- NOTE | 2023-04-27 03:57 | XR ---
EXAM: XR Chest, 2 Views CLINICAL HISTORY: ITS.REASON XR Reason: Chest Pain TECHNIQUE: Frontal and lateral views of the chest. COMPARISON: No relevant prior studies available. FINDINGS: Lungs: No consolidation or mass. Pleural space: No effusion. Heart: No cardiomegaly. Bones/joints: No acute findings. IMPRESSION: No acute cardiopulmonary process.
[2023-04-27] MEDS ORDERED: ASPIRIN 81 MG PO STA (05:09)
[2023-04-27] MEDS ORDERED: NITROGLYCERIN SL TABS 0.4 MG TAB SUBLINGUAL PRN (05:09)
[2023-04-27] MEDS ORDERED: NITROGLYCERIN SL TABS 0.4 MG TAB SUBLINGUAL STA (05:10)
[2023-04-27] MEDS ORDERED: NON FORMULARY DRUG (Rimegepant Sulfate [Nurtec Odt] 75 MG Tablet) PO PRN (09:55)
[2023-04-27] MEDS ORDERED: HEPARIN SODIUM 1,000 UN/ML (10ML VL) IV PRN (10:00)
[2023-04-27] MEDS ORDERED: HEPARIN SODIUM 1,000 UN/ML (10ML VL) IV ONE (10:00)
[2023-04-27] MEDS: PANTOPRAZOLE 40 MG TABLET PO SCH (10:50)
[2023-04-27] MEDS: TICAGRELOR 90 MG TAB PO SCH ×2 (10:50→20:14)
[2023-04-27] MEDS: ASPIRIN 81 MG PO SCH (10:50)
[2023-04-27] MEDS: ESCITALOPRAM 10 MG TAB PO SCH (10:51)
[2023-04-27] MEDS: METOPROLOL SUCCINATE (ER) 25 MG TAB.ER.24H PO SCH (10:51)
[2023-04-27] MEDS ORDERED: HEPARIN SODIUM 1,000 UN/ML (10ML VL) IVP STA (10:57)
[2023-04-27] MEDS: HEPARIN SOD,PORK IN 0.45% NACL 25,000 UNIT in 0.45% NACL 1 250ML.BAG IV SCH (11:07)
[2023-04-27 11:38] LABS: Anisocytosis Slight; Basophils % (A) 0 %; Eosinophils # (A) 0.1 k/uL (0-0.7); Eosinophils % (A) 1 %; HCT 28.3 % (34.0-46.0); HGB 8.4 gm/dL (11.4-16.0); Hypochromasia Marked; Lymphocytes # (A) 1.7 k/uL (1.0-4.8); Lymphocytes % (A) 22 %; MCH 24.6 pg (25.0-35.0); MCHC 29.8 g/dL (31.0-37.0); MCV 82.3 fL (80.0-100.0); Monocytes # (A) 0.8 k/uL (0-1.0); Monocytes % (A) 11 %; Neutrophils # (A) 5.2 k/uL (1.3-7.7); Neutrophils % (A) 65 %; Platelet Count 390 k/uL (150-450); Poikilocytosis Slight; RBC 3.43 m/uL (3.80-5.40); RDW 18.1 % (11.5-15.5)
[2023-04-27 11:52] LABS: INR 0.9 (<1.2); Prothrombin Time 9.6 sec (9.0-12.0)
[2023-04-27 12:04] LABS: Partial Thromboplastin Time 21.6 sec (22.0-30.0)
[2023-04-27] MEDS: BALSALAZIDE DISODIUM 750 MG CAPSULE PO SCH ×3 (12:11→20:15)
--- NOTE | 2023-04-27 12:50 | P.HPIM ---
History of Present Illness H&P Date: 04/27/23 Chief Complaint: Chest pain * 52-year-old lady with past medical history significant for coronary artery disease, history of hyperlipidemia, hypertension, history of GI bleed, ulcerative colitis, hypothyroid presented to the emergency department with complaints of chest pain * Patient complained of midsternal chest pain, radiating down her left arm. This was associated with nausea, chest pain was brief in duration. And resolved. Patient also presents complained of associated palpitations * Workup initiated in ER including EKG showed tachycardia with heart rate of [address] segment changes * Blood work in ER showed CBC with hemoglobin of 9.0 hematocrit 30 platelet 398. D-dimer 0.55 * Serum chemistry sodium 136 potassium 4 carbon dioxide 14 BUN 19 creatinine 1.01 * Troponin obtained 1.430, serial troponins ordered * In regards to start off atrial flutter patient started on IV heparin and admitted to medical floor with consultation from cardiology * Please note patient was recently admitted with ulcerative colitis and concern for gastrointestinal bleed and was seen by gastroenterology. She had a recent colonoscopy completed last week. Patient has been on tapered dose of prednisone on 20 mg daily for 7 days followed by 10 mg daily REVIEW OF SYSTEMS: Chest pain CONSTITUTIONAL: No fever, no malaise, no fatigue. HEENT: No recent visual problems or hearing problems. Denied any sore throat. CARDIOVASCULAR: No chest pain, orthopnea, PND, no palpitations, no syncope. PULMONARY: No shortness of breath, no cough, no hemoptysis. GASTROINTESTINAL: No diarrhea, no nausea, no vomiting, no abdominal pain. , Blood in stool from ulcerative colitis has improved NEUROLOGICAL: No headaches, no weakness, no numbness. HEMATOLOGICAL: Denies any bleeding or petechiae. GENITOURINARY: Denies any burning micturition, frequency, or urgency. MUSCULOSKELETAL/RHEUMATOLOGICAL: Denies any joint pain, swelling, or any muscle pain. ENDOCRINE: Denies any polyuria or polydipsia. PHYSICAL EXAMINATION: GENERAL: The patient is alert and oriented x3, not in any acute distress. Ill appearance HEENT: Pupils are round and equally reacting to light. EOMI.. CARDIOVASCULAR: S1 and S2 present. Irregular, tachycardia PULMONARY: Chest is clear to auscultation, no wheezing or crackles. ABDOMEN: Soft, nontender, nondistended, normoactive bowel sounds. No palpable organomegaly. MUSCULOSKELETAL: No joint swelling or deformity. EXTREMITIES: No cyanosis, clubbing, or pedal edema. NEUROLOGICAL: Gross neurological examination did not reveal any focal deficits. SKIN: No rashes. Past Medical History Past Medical History: Chest Pain / Angina, GI Bleed, Hyperlipidemia, Osteoarthritis (OA), Thyroid Disorder Additional Past Medical History / Comment(s): See Dr Edward's H&P. . Plantar Fasciitis. Colitis. Thyroid nodule. Broke neck 3 yrs ago after falling down stairs - " Have a couple of cracks in my neck." Migraines. LT THUMB TENDONITIS, History of Any Multi-Drug Resistant Organisms: None Reported Past Surgical History: Section, Heart Catheterization With Stent, Orthopedic Surgery Additional Past Surgical History / Comment(s): Left arm surgery. Dental work. Past Anesthesia/Blood Transfusion Reactions: No Reported Reaction, Family History of Problems w/ Anesthesia Additional Past Anesthesia/Blood Transfusion Reaction / Comment(s): Mom PONV. Date of Last Stent Placement:: apr Past Psychological History: Depression Smoking Status: Current some day smoker - Past Family History Mother Family Medical History: AICD/Pacemaker, Cancer Additional Family Medical History / Comment(s): Uterine cancer. Medications and Allergies Home Medications Medication Instructions Recorded Confirmed Type Escitalopram [Lexapro] 10 mg PO DAILY 05/06/22 04/27/23 History Mesalamine 4.8 gm PO DAILY 05/06/22 04/27/23 History Metoprolol Succinate [Metoprolol 25 mg PO DAILY 05/06/22 04/27/23 History Succinate ER] Nitroglycerin Sl Tabs [Nitrostat] 0.4 mg SL Q5M PRN 05/06/22 04/27/23 History Omeprazole [PriLOSEC] 20 mg PO DAILY 05/06/22 04/27/23 History Rimegepant Sulfate [Nurtec Odt] 75 mg PO BID PRN 05/06/22 04/27/23 History tiZANidine [Zanaflex] 4 mg PO HS 05/06/22 04/27/23 History Atorvastatin [Lipitor] 80 mg PO HS #90 tab 03/22/23 04/27/23 Rx Pantoprazole [Protonix] 40 mg PO DAILY #30 tab 03/22/23 04/27/23 Rx Aspirin EC [Ecotrin Low Dose] 81 mg PO DAILY 04/20/23 04/27/23 History Ticagrelor [Brilinta] 90 mg PO BID 04/20/23 04/27/23 History predniSONE [Deltasone] See Taper PO DAILY 04/20/23 04/27/23 History Allergies Allergy/AdvReac Type Severity Reaction Status Date / Time wool Allergy Rash/Hives Verified 04/27/23 06:52 Physical Exam Vitals: Vital Signs Temp Pulse Resp BP Pulse Ox 04/27/23 06:44 97.5 F L 100 16 149/91 99 04/27/23 05:28 100 16 97 04/27/23 05:17 97 04/27/23 04:28 103 H 18 147/84 97 04/27/23 01:18 97.6 F 125 H 18 188/109 100 Intake and Output 04/26/23 04/27/23 04/27/23 22:59 06:59 14:59 Other: Weight 92.079 kg Results CBC & Chem 7: 04/27/23 11:03 04/27/23 01:45 Labs: Abnormal Lab Results - Last 24 Hours (Table) 04/27/23 04/27/23 04/27/23 Range/Units 01:45 01:45 01:45 RBC 3.66 L (3.80-5.40) m/uL Hgb 9.2 L (11.4-16.0) gm/dL Hct 30.3 L (34.0-46.0) % MCHC 30.2 L (31.0-37.0) g/dL RDW 18.0 H (11.5-15.5) % Lymphocytes # 0.5 L (1.0-4.8) k/uL APTT 21.9 L (22.0-30.0) sec Sodium 136 L (137-145) mmol/L Carbon Dioxide 17 L (22-30) mmol/L BUN 19 H (7-17) mg/dL Glucose 288 H (74-99) mg/dL Alkaline Phosphatase 130 H (38-126) U/L Troponin I (0.000-0.034) ng/mL 04/27/23 Range/Units 07:07 RBC (3.80-5.40) m/uL Hgb (11.4-16.0) gm/dL Hct (34.0-46.0) % MCHC (31.0-37.0) g/dL RDW (11.5-15.5) % Lymphocytes # (1.0-4.8) k/uL APTT (22.0-30.0) sec Sodium (137-145) mmol/L Carbon Dioxide (22-30) mmol/L BUN (7-17) mg/dL Glucose (74-99) mg/dL Alkaline Phosphatase (38-126) U/L Troponin I 1.430 H* (0.000-0.034) ng/mL Assessment and Plan Assessment: Assessment and plan * Non-ST elevated [place], coronary artery disease with history of PCI * New onset atrial flutter * History of ulcerative colitis with gastrointestinal bleed March 2023 * Hypertension * History of depression * Hyperlipidemia * In regards to elevated troponin and new onset atrial flutter, patient started on IV heparin. Continue aspirin and brilanta. Cardiology consulted * In regards to history of ulcerative colitis and anemia continue with low intensity heparin. Continue to monitor CBC will discontinue IV anticoagulation as soon as cleared by cardiology or if starts to have worsening gastrointestinal bleed * Óscar had a recent flare of ulcerative colitis and is on tapered dose of prednisone. Continue 20 mg daily for 7 days followed by 10 mg daily * In regards to history of coronary artery disease continue aspirin, brilanta, Lipitor * In regards to history of depression continue Lexapro * CODE STATUS is full code
[2023-04-27 14:06] LABS: T4, Free (Free Thyroxine) 1.61 ng/dL (0.78-2.19)
[2023-04-27] MEDS ORDERED: ALPRAZolam 0.5 MG TAB PO PRN (14:31)
[2023-04-27] MEDS ORDERED: ALPRAZolam 0.25 MG TAB PO PRN (14:31)
[2023-04-27] MEDS ORDERED: ATORVASTATIN 80 MG TAB PO STA (14:31)
[2023-04-27] MEDS ORDERED: ASPIRIN 325 MG TAB PO STA (14:31)
--- NOTE | 2023-04-27 14:58 | P.CRDCN ---
History of Present Illness Consult date: 04/27/23 Reason for Consult (text): Elevated troponin Consult reason: chest pain History of present illness: History of present illness: This is a 52 year old female patient of Dr. Edward with past medical history of coronary artery disease status post PCI in April 2022 on Brilinta and aspirin, history of tobacco use and dependence, depression, neck injury with neuropathy, hyperlipidemia, ulcerative colitis. Patient presented to the hospital due to chest pain that started at 1045 last evening. She took a nitro glycerin sublingual and pain pills around 11 PM. By midnight she was not feeling any better but she waited until about 1:00 to come into the hospital for further evaluation. The chest pain resolved around 3 AM and has not returned. Patient does have ulcerative colitis and follows with Dr. Leroy Garcia. She recently had a colonoscopy on 04/21 which showed colitis. Patient has been resumed back on Brilinta starting this week she was off Brilinta for 2 weeks. She states she has had intermittent rectal bleeding. Patient has been a smoker but states she quit 2 weeks ago. Patient has been started on heparin drip EKG sinus rhythm tachycardic in 116 bpm Chest x-ray: No acute process WBC 8, hemoglobin 8.4, platelet count 390. INR 0.9. Sodium 136, potassium 4, but sugar 288. Alkaline phosphatase 130 otherwise liver function tests are normal. Magnesium 1.8. Troponin 0.0-30, 1.43, 1.77. TSH less than 0.015 with normal free T4 of 1.61. Stool for occult blood positive. Home cardiac medications: Aspirin 81 mg daily, Lipitor 80 mild grams at bedtime, metoprolol succinate 25 mg daily, Nitrostat as needed, Brilinta 90 mg twice daily. Cardiac catheterization 05/09/2022 revealed CAD proximal RCA 80%, mid to distal RCA 70%, small caliber diagonal 100% with left to left collaterals. Status post PCI of the proximal RCA, PCI of the distal RCA, rotational atherectomy. Echocardiogram 08/2022 revealed normal LV systolic function, mild mitral and tricuspid regurgitation. Exercise tolerance test performed in the office on 06/20/2022 revealed poor exercise tolerance. No symptoms. Nondiagnostic secondary to an adequate chronotropic response. Review Of Systems: At the time of my evaluation: Constitutional: No fever, no chills. No weakness, fatigue or lethargy. EENT: No headache. No dizziness. Lungs: No shortness of breath, cough, no sputum production. No wheezing. Cardiovascular: No chest pain, no lower extremity edema. No palpitations. No paroxysmal nocturnal dyspnea. No orthopnea. No lightheadedness or dizziness. No syncopal episodes. Abdominal: No abdominal pain. No nausea, vomiting. No diarrhea. No constipation. + Intermittent bloody stools. Genitourinary: No dysuria.. No urinary retention. Musculoskeletal: No myalgias. No muscle weakness, no frequent falls. Integumentary: No wounds. No rash. No unusual bruising. Neurologic: No aphasia. No facial droop. No change in mentation. Physical examination: Gen: This is a 52 year old obese female. She is resting on ER stretcher and appears comfortable and in no acute distress VS: reviewed HEENT: Head is atraumatic, normocephalic. Pupils equal, round. Sclerae is anicteric. NECK: Supple. No JVD. . LUNGS: Clear to auscultation. No wheezes or rhonchi. No intercostal retractions. HEART: Regular rate and rhythm. Systolic murmur. ABDOMEN: Soft No tenderness. EXTREMITIES: No pedal edema. No calf tenderness. NEUROLOGICAL: Patient is awake, alert and oriented x3. Assessment: Non-ST elevated myocardial infarction History of coronary artery disease with previous stenting to the RCA 05/09/2022 Ulcerative colitis Hyperlipidemia Tobacco use and dependence, quit 2 weeks ago Plan: Continue patient's home cardiac medications, IV heparin Monitor hemoglobin every 8 hours Obtain 2-D echocardiogram and Doppler study to assess cardiac structure and function Further recommendations to follow based upon clinical course Thank you kindly for this consultation. Nurse practitioner note has been reviewed, I agree with documented findings and plan of care. Patient was seen and examined. Past Medical History Past Medical History: Chest Pain / Angina, GI Bleed, Hyperlipidemia, Osteoarthritis (OA), Thyroid Disorder Additional Past Medical History / Comment(s): See Dr Edward's H&P. . Plantar Fasciitis. Colitis. Thyroid nodule. Broke neck 3 yrs ago after falling down stairs - " Have a couple of cracks in my neck." Migraines. LT THUMB TENDONITIS, History of Any Multi-Drug Resistant Organisms: None Reported Past Surgical History: Section, Heart Catheterization With Stent, Orthopedic Surgery Additional Past Surgical History / Comment(s): Left arm surgery. Dental work. Past Anesthesia/Blood Transfusion Reactions: No Reported Reaction, Family History of Problems w/ Anesthesia Additional Past Anesthesia/Blood Transfusion Reaction / Comment(s): Mom PONV. Date of Last Stent Placement:: apr Past Psychological History: Depression Smoking Status: Current some day smoker - Past Family History Mother Family Medical History: AICD/Pacemaker, Cancer Additional Family Medical History / Comment(s): Uterine cancer. Medications and Allergies Home Medications Medication Instructions Recorded Confirmed Type Escitalopram [Lexapro] 10 mg PO DAILY 05/06/22 04/27/23 History Mesalamine 4.8 gm PO DAILY 05/06/22 04/27/23 History Metoprolol Succinate [Metoprolol 25 mg PO DAILY 05/06/22 04/27/23 History Succinate ER] Nitroglycerin Sl Tabs [Nitrostat] 0.4 mg SL Q5M PRN 05/06/22 04/27/23 History Omeprazole [PriLOSEC] 20 mg PO DAILY 05/06/22 04/27/23 History Rimegepant Sulfate [Nurtec Odt] 75 mg PO BID PRN 05/06/22 04/27/23 History tiZANidine [Zanaflex] 4 mg PO HS 05/06/22 04/27/23 History Atorvastatin [Lipitor] 80 mg PO HS #90 tab 03/22/23 04/27/23 Rx Pantoprazole [Protonix] 40 mg PO DAILY #30 tab 03/22/23 04/27/23 Rx Aspirin EC [Ecotrin Low Dose] 81 mg PO DAILY 04/20/23 04/27/23 History Ticagrelor [Brilinta] 90 mg PO BID 04/20/23 04/27/23 History predniSONE [Deltasone] See Taper PO DAILY 04/20/23 04/27/23 History Allergies Allergy/AdvReac Type Severity Reaction Status Date / Time wool Allergy Rash/Hives Verified 04/27/23 06:52 Physical Exam Vitals: Vital Signs Temp Pulse Resp BP Pulse Ox 04/27/23 13:44 103 H 18 135/76 95 04/27/23 12:12 106 H 18 166/87 95 04/27/23 10:04 99.1 F 108 H 20 143/85 96 04/27/23 06:44 97.5 F L 100 16 149/91 99 04/27/23 05:28 100 16 97 04/27/23 05:17 97 04/27/23 04:28 103 H 18 147/84 97 04/27/23 01:18 97.6 F 125 H 18 188/109 100 Intake and Output 04/26/23 04/27/23 04/27/23 22:59 06:59 14:59 Other: Weight 92.079 kg Results 04/27/23 11:03 04/27/23 01:45 Cardiac Enzymes 04/27/23 04/27/23 04/27/23 Range/Units 01:45 01:45 07:07 AST 22 (14-36) U/L Troponin I 0.023 1.430 H* (0.000-0.034) ng/mL 04/27/23 Range/Units 11:03 AST (14-36) U/L Troponin I 1.770 H* (0.000-0.034) ng/mL Coagulation 04/27/23 04/27/23 Range/Units 01:45 11:03 PT 9.6 9.6 (9.0-12.0) sec APTT 21.9 L 21.6 L (22.0-30.0) sec CBC 04/27/23 04/27/23 Range/Units 01:45 11:03 WBC 6.1 8.0 (3.8-10.6) k/uL RBC 3.66 L 3.43 L (3.80-5.40) m/uL Hgb 9.2 L 8.4 L (11.4-16.0) gm/dL Hct 30.3 L 28.3 L (34.0-46.0) % Plt Count 398 390 (150-450) k/uL Comprehensive Metabolic Panel 04/27/23 Range/Units 01:45 Sodium 136 L (137-145) mmol/L Potassium 4.0 (3.5-5.1) mmol/L Chloride 105 (98-107) mmol/L Carbon Dioxide 17 L (22-30) mmol/L BUN 19 H (7-17) mg/dL Creatinine 1.01 (0.52-1.04) mg/dL Glucose 288 H (74-99) mg/dL Calcium 8.9 (8.4-10.2) mg/dL AST 22 (14-36) U/L ALT 19 (4-34) U/L Alkaline Phosphatase 130 H (38-126) U/L Total Protein 6.3 (6.3-8.2) g/dL Albumin 3.5 (3.5-5.0) g/dL Current Medications Generic Name Dose Route Start Last Admin Trade Name Freq PRN Reason Stop Dose Admin Aspirin 81 mg 04/27/23 10:15 04/27/23 10:50 Aspirin 81 Mg PO 81 mg DAILY AGUSTIN Administration Atorvastatin Calcium 80 mg 04/27/23 21:00 Atorvastatin 80 Mg Tab PO HS AGUSTIN Balsalazide 2,250 mg 04/27/23 10:30 04/27/23 12:11 Balsalazide Disodium 750 Mg Capsule PO 2,250 mg TID AGUSTIN Administration Escitalopram Oxalate 10 mg 04/27/23 10:00 04/27/23 10:51 Escitalopram 10 Mg Tab PO 10 mg DAILY [facility] Administration Heparin Sodium (Porcine) 0 unit 04/27/23 10:00 Heparin Sodium 1,000 Un/Ml (10ml Vl) IV PER PROTOCOL PRN Low PTT Protocol Heparin Sodium/Sodium Chloride 250 mls @ 11.049 mls/hr 04/27/23 10:30 04/27/23 11:07 25,000 unit/ Sodium Chloride IV 12 units/kg/hr .[id number] AGUSTIN 11.049 mls/hr Administration Protocol 12 UNITS/KG/HR Metoprolol Succinate 25 mg 04/27/23 10:00 04/27/23 10:51 Metoprolol Succinate (Er) 25 Mg Tab.Er.24h PO 25 mg DAILY [facility] Administration Nitroglycerin 0.4 mg 04/27/23 05:09 Nitroglycerin Sl Tabs 0.4 Mg Tab SUBLINGUAL Q5M PRN Chest Pain Non-Formulary Medication 75 mg 04/27/23 09:55 Rimegepant Sulfate [Nurtec Odt] PO BID PRN Migraine Headache Pantoprazole Sodium 40 mg 04/27/23 10:30 04/27/23 10:50 Pantoprazole 40 Mg Tablet PO 40 mg [id number] AGUSTIN Administration Prednisone 20 mg 04/28/23 09:00 Prednisone 20 Mg Tab PO DAILY [facility] Ticagrelor 90 mg 04/27/23 10:30 04/27/23 10:50 Ticagrelor 90 Mg Tab PO 90 mg BID AGUSTIN Administration Tizanidine HCl 4 mg 04/27/23 21:00 Tizanidine 4 Mg Tab PO [facility] Intake and Output 04/26/23 04/27/23 04/27/23 22:59 06:59 14:59 Other: Weight 92.079 kg 04/27/23 11:03 04/27/23 01:45
[2023-04-27 17:35] LABS: Anisocytosis Slight; HGB 8.9 gm/dL (11.4-16.0); Hypochromasia Marked; MCH 24.7 pg (25.0-35.0); MCHC 29.7 g/dL (31.0-37.0); MCV 83.2 fL (80.0-100.0); Mean Platelet Volume 7.1; Platelet Count 381 k/uL (150-450); Poikilocytosis Slight; RBC 3.61 m/uL (3.80-5.40); RDW 18.1 % (11.5-15.5); WBC 7.5 k/uL (3.8-10.6)
[2023-04-27] MEDS: ATORVASTATIN 80 MG TAB PO SCH (20:14)
[2023-04-27] MEDS: tiZANidine 4 MG TAB PO SCH (20:14)
[2023-04-28 00:02] LABS: Anisocytosis Slight; HCT 26.5 % (34.0-46.0); Hypochromasia Marked; MCH 24.8 pg (25.0-35.0); MCHC 30.2 g/dL (31.0-37.0); MCV 82.2 fL (80.0-100.0); Mean Platelet Volume 6.9; Microcytosis Slight; Platelet Count 360 k/uL (150-450); Poikilocytosis Slight; RBC 3.22 m/uL (3.80-5.40); RDW 18.2 % (11.5-15.5); WBC 6.8 k/uL (3.8-10.6)
[2023-04-28 02:52] LABS: African American GFR (CKD) 88 (>60 ml/min/1.73 sqM); Anion Gap 8 mmol/L; Blood Urea Nitrogen 13 mg/dL (7-17); Calcium 8.4 mg/dL (8.4-10.2); Carbon Dioxide 22 mmol/L (22-30); Chloride 104 mmol/L (98-107); Glucose 90 mg/dL (74-99); Non-African American GFR(CKD) 76 (>60 ml/min/1.73 sqM); Potassium 3.9 mmol/L (3.5-5.1); Sodium 134 mmol/L (137-145)
[2023-04-28 03:16] LABS: INR 0.9 (<1.2); Partial Thromboplastin Time 45.2 sec (22.0-30.0)
[2023-04-28 03:32] LABS: Anisocytosis Slight; HCT 28.3 % (34.0-46.0); HGB 8.7 gm/dL (11.4-16.0); Hypochromasia Marked; MCH 25.8 pg (25.0-35.0); MCHC 30.8 g/dL (31.0-37.0); MCV 83.7 fL (80.0-100.0); Mean Platelet Volume 7.5; Platelet Count 365 k/uL (150-450); Poikilocytosis Slight; RBC 3.38 m/uL (3.80-5.40); RDW 17.9 % (11.5-15.5); WBC 7.1 k/uL (3.8-10.6)
[2023-04-28 05:15] LABS: Band Neutrophils % 2 %; Eosinophils # (M) 0.36 k/uL (0-0.7); Metamyelocytes # (M) 0.07 k/uL (0); Metamyelocytes % 1 %; Monocytes # (M) 0.64 k/uL (0-1.0); Neutrophils % (M) 39 %; Nucleated Red Blood Cells 0 /100 WBC (0-0); Total Cells Counted 200
[2023-04-28 05:18] LABS: Polychromasia Present
[2023-04-28] MEDS: HEPARIN SOD,PORK IN 0.45% NACL 25,000 UNIT in 0.45% NACL 1 250ML.BAG IV SCH (05:30)
[2023-04-28] MEDS: PANTOPRAZOLE 40 MG TABLET PO SCH (05:31)
[2023-04-28] MEDS ORDERED: ASPIRIN 325 MG TAB PO ONE (06:00)
[2023-04-28] MEDS ORDERED: ATORVASTATIN 80 MG TAB PO ONE (06:00)
[2023-04-28] MEDS ORDERED: HEPARIN SODIUM,PORCINE 10,000 UNIT in SODIUM CHLORIDE 0.9% 1,000 ML IRRIGATION PRN (07:00)
[2023-04-28] MEDS ORDERED: HEPARIN SODIUM,PORCINE (1 ML) 2,500 UNIT in SODIUM CHLORIDE 0.9% 250 ML IRRIGATION PRN (07:00)
--- NOTE | 2023-04-28 07:37 | CA ---
Transthoracic Echo Report Name: Rama Raimres Age: 52 Gender: F : 1970 Exam Date: 04/27/2023 15:24 Exam Location: [place] [facility] Ht (in): 62 Wt (lb): 200 Ordering Physician: Beti Pitts Attending/Referring Phys: [id number], Hong Ibm Bpm Developer Emmy Avilez, CIRILO Procedure CPT: Indications: LVF Cardiac Hx: Technical Quality: Good Contrast 1: Total Dose (mL): Contrast 2: Total Dose (mL): MEASUREMENTS (Male / Female) Normal Values 2D ECHO LV Diastolic Diameter PLAX 4.8 cm 4.2 - 5.9 / 3.9 - 5.3 cm LV Systolic Diameter PLAX 3.1 cm IVS Diastolic Thickness 0.9 cm 0.6 - 1.0 / 0.6 - 0.9 cm LVPW Diastolic Thickness 0.9 cm 0.6 - 1.0 / 0.6 - 0.9 cm LV Relative Wall Thickness 0.4 RV Internal Dim ED PLAX 2.7 cm LA Systolic Diameter LX 3.3 cm 3.0 - 4.0 / 2.7 - 3.8 cm LV Diastolic Volume MOD 4C 81.3 cm??? LV Systolic Volume MOD 4C 41.1 cm??? LV Ejection Fraction MOD 4C 49.5 % LV Cardiac Index MOD 4C 2054.4 cm???/min???m??? LV Diastolic Length 4C 8.9 cm LV Systolic Length 4C 7.4 cm LV Diastolic Volume MOD 2C 69.4 cm??? LV Systolic Volume MOD 2C 22.1 cm??? LV Ejection Fraction MOD 2C 68.1 % LV Cardiac Index MOD 2C 2414.6 cm???/min???m??? LV Diastolic Length 2C 8.4 cm LV Systolic Length 2C 7.3 cm LA Volume 35.4 cm??? 18 - 58 / 22 - 52 cm??? M-MODE Aortic Root Diameter MM 2.9 cm MV E Point Septal Separation 0.8 cm AV Cusp Separation MM 1.9 cm DOPPLER AV Peak Velocity 173.2 cm/s AV Peak Gradient 12.0 mmHg MV Area PHT 7.9 cm??? Mitral E Point Velocity 94.9 cm/s Mitral A Point Velocity 110.5 cm/s Mitral E to A Ratio 0.9 MV Deceleration Time 96.4 ms MV E' Velocity 5.5 cm/s Mitral E to MV E' Ratio 17.2 FINDINGS Left Ventricle Left ventricular ejection fraction is estimated at 55-60 %. Left ventricular cavity size normal. Left ventricular wall thickness normal. Right Ventricle Normal right ventricular size. Unable to estimate the right ventricular systolic pressure. Right Atrium Normal right atrial size. Left Atrium Normal left atrial size. Mitral Valve Structurally normal mitral valve. No mitral stenosis, regurgitation or prolapse. Aortic Valve Trileaflet aortic valve. No aortic valve stenosis or regurgitation. Tricuspid Valve Structurally normal tricuspid valve. No tricuspid stenosis, regurgitation or prolapse. Pulmonic Valve Structurally normal pulmonic valve. No pulmonic regurgitation. Pericardium No pericardial effusion. Aorta Normal size aortic root and proximal ascending aorta. CONCLUSIONS 1. Normal left ventricle size and systolic function 2. No significant valvular abnormalities Previewed by: Dr. Tahir Guevara MD (Electronically Signed) Final Date: 28 April 2023 07:37
[2023-04-28] MEDS: ASPIRIN 81 MG PO SCH (07:47)
[2023-04-28] MEDS ORDERED: ASPIRIN 325 MG TAB PO SCH (09:00)
[2023-04-28] MEDS: BALSALAZIDE DISODIUM 750 MG CAPSULE PO SCH ×3 (09:37→20:45)
[2023-04-28] MEDS: predniSONE 20 MG TAB PO SCH (09:37)
[2023-04-28] MEDS: TICAGRELOR 90 MG TAB PO SCH ×2 (09:37→20:44)
[2023-04-28] MEDS: METOPROLOL SUCCINATE (ER) 25 MG TAB.ER.24H PO SCH (09:38)
[2023-04-28] MEDS: ESCITALOPRAM 10 MG TAB PO SCH (09:38)
[2023-04-28 09:42] LABS: Anisocytosis Slight; HCT 27.9 % (34.0-46.0); HGB 8.1 gm/dL (11.4-16.0); Hypochromasia Marked; MCH 24.3 pg (25.0-35.0); MCHC 29.1 g/dL (31.0-37.0); MCV 83.5 fL (80.0-100.0); Mean Platelet Volume 7.2; Platelet Count 335 k/uL (150-450); Poikilocytosis Slight; RBC 3.34 m/uL (3.80-5.40); RDW 17.8 % (11.5-15.5); WBC 6.6 k/uL (3.8-10.6)
[2023-04-28] MEDS ORDERED: fentaNYL (PF) 50 MCG/ML 2 ML AMP ONE (12:23)
[2023-04-28] MEDS ORDERED: IV FLUID CONTINUATION 1,000 ML IV ONE (12:30)
[2023-04-28] MEDS ORDERED: MIDAZOLAM 2 MG/2 ML VIAL IVP ONE (12:53)
[2023-04-28] MEDS ORDERED: fentaNYL (PF) 50 MCG/ML 2 ML AMP IVP ONE (12:53)
[2023-04-28] MEDS ORDERED: LIDOCAINE 1% INJ 10MG/ML (20 ML MDV) SQ ONE (12:55)
[2023-04-28] MEDS ORDERED: VERAPAMIL SYRINGE (5 MG/10 ML) INTRAARTER ONE (12:56)
[2023-04-28] MEDS ORDERED: SODIUM CHLORIDE 0.9% 1,000 ML IV ONE (13:01)
[2023-04-28] MEDS: HEPARIN SODIUM 1,000 UN/ML (10ML VL) IV ONE ×5 (13:04→14:05)
[2023-04-28] MEDS ORDERED: TICAGRELOR 90 MG TAB PO ONE (13:34)
[2023-04-28] MEDS ORDERED: IOPAMIDOL-370 100ML BTL INJ ONE ×2 (13:48→14:12)
[2023-04-28] MEDS: NITROGLYCERIN 1000MCG/10ML SYRINGE INTRACORON ONE ×2 (13:54→14:00)
[2023-04-28] MEDS ORDERED: ATROPINE SULFATE 0.1 MG/ML 10ML SYRINGE IV PRN (14:13)
[2023-04-28] MEDS ORDERED: ZOLPIDEM 5 MG TAB PO PRN (14:13)
[2023-04-28] MEDS ORDERED: RX INFO: IV CONTRAST WAS GIVEN 1 EACH MISC MISCELLANE PRN (14:13)
[2023-04-28] MEDS ORDERED: MAG HYDROX/AL HYDROX/SIMETH 30 ML CUP PO PRN (14:13)
[2023-04-28] MEDS ORDERED: SODIUM CHLORIDE 0.9% 1,000 ML in EMPTY BAG 1 BAG IV SCH (14:15)
--- NOTE | 2023-04-28 14:21 | P.PRCINT ---
Percutaneous Coronary Int. - Percutaneous Coronary Intervention Percutaneous Coronary Intervention: PROCEDURES PERFORMED: Left heart catheterization, bilateral coronary angiography, ultrasound guided arterial access, iFR LAD, IVUS LAD, PCI LAD with a 3.0 x 33mm Xience ARTURO, post dilated with a 4.0 NC balloon INDICATION: Non-STEMI CONSENT:I have discussed the risks, benefits and alternative therapies for the above-mentioned procedure and for both sedation/analgesia as well as necessary blood product administration, if indicated, as they pertain to this patient. The patient has indicated understanding and acceptance of the risks and procedures discussed. PROCEDURE: After the risks, benefits and alternatives of the above mentioned procedure explained in detail with the patient, informed consent was obtained. Patient was taken to the catheterization lab and prepped and draped in usual fashion. Ultrasound guidance was used to assess for arterial access. 1% lidocaine was used to anesthetize the left radial artery given short aorta with difficulty engaging the left main previously from a right radial approach. A 6- [place] sheath was placed in the left radial artery using modified Seldinger technique and ultrasound guidance. Left coronary angiography was performed with a 5-[place] JL 4.0 catheter and right coronary angiography was performed with a 5-[place] AR2 catheter in various views. A 5-[place] AR2 catheter was inserted into the left ventricle and pressure measurements were obtained. Given relatively similar anatomy as well as symptoms intermittently at home and relatively unchanged diagonal branch, decision was made to perform iFR of the LAD since that supplied a big territory including the CT of the diagonal branch. Through the diagnostic catheter to a 0.014 pressure wire was advanced into the left main and then normalized. It was then advanced 1 cm distal to the longer proximal and mid LAD stenosis. iFR was abnormal at 0.81 with no drift noted. Therefore decision was made to perform PCI. A 6-[place] CLS 3.5 guide was used to engage the left main. A 0.014 BMW wire was advanced in the distal LAD. Predilation was performed with a 3.0 noncompliant balloon. Intravascular ultrasound showed diffuse calcified stenosis with proximal LAD measuring 4.0 mm and the mid LAD 3.0 mm. Therefore a 3.0 x 33 mm Xience ARTURO was placed in the proximal LAD. The proximal LAD was postdilated with a 4.0 noncompliant balloon. Repeat intravascular ultrasound showed excellent stent expansion proximally however some distal underexpansion and therefore this was postdilated with a 3.0 noncompliant balloon. Repeat intravascular ultrasound showed excellent stent apposition. The wire was pulled and final angiograms were performed.. Intervention there was 50-60% proximal and mid LAD stenosis with DELPHINE 3 flow and postintervention there was less than 10% stenosis with DELPHINE 3 flow. The left radial sheath was removed and a TR band was placed with hemostasis achieved. The patient tolerated the procedure well. Patient was transported back to the post catheterization holding area in stable condition. Conscious Sedation: Patient was monitored under the direct supervision of myself for conscious sedation using Versed and fentanyl for a total duration of 75 minutes HEMODYNAMICS: Aorta: 127/62 LV: 123/8, LVEDP 14 SELECTIVE CORONARY ARTERIOGRAPHY: LEFT MAIN: The left main is a large caliber vessel which bifurcates into the LAD and circumflex. There is no significant stenosis. LEFT ANTERIOR DESCENDING CORONARY ARTERY: LAD is a large caliber vessel which wraps around to the apex. There is diffuse proximal to mid LAD 50-60% stenosis and otherwise mild luminal irregularities of the LAD. Diagonal 1 is a small to moderate caliber vessel which is subtotally occluded proximally with left to left collaterals mainly from the apex. LEFT CIRCUMFLEX CORONARY ARTERY: Left circumflex is a moderate caliber vessel with mild luminal irregularities. RIGHT CORONARY ARTERY: The right coronary artery is a large caliber vessel which gives off a PDA and PLV branch and is the dominant vessel. There is a patent proximal and mid to distal RCA stents with otherwise diffuse 30-40% mid to distal RCA stenosis. FINAL IMPRESSION: 1. CAD as described above including proximal to mid LAD 50-60% stenosis, diagonal 1 and 100% stenosis, RCA 30-40% stenosis. 2. iFR abnormal of LAD 3. S/p PCI LAD with a 3.0 x 33mm Xience ARTURO, post dilated with a 4.0 NC balloon 4. Normal left sided filling pressures PLAN: 1. Aggressive risk factor modification per most recent ACC/AHA guidelines. 2. Continue dual antiplatelets with aspirin and Brillinta for 12 months.
--- NOTE | 2023-04-28 16:51 | P.PN ---
Subjective Progress Note Date: 04/28/23 52-year-old lady with past medical history significant for coronary artery disease, history of hyperlipidemia, hypertension, history of GI bleed, ulcerative colitis, hypothyroid presented to the emergency department with complaints of chest pain Patient complained of midsternal chest pain, radiating down her left arm. This was associated with nausea, chest pain was brief in duration. And resolved. Jorge Luis thang also presents complained of associated palpitations Workup initiated in ER including EKG showed tachycardia with heart rate of [address] segment changes Blood work in ER showed CBC with hemoglobin of 9.0 hematocrit 30 platelet 398. D-dimer 0.55 Serum chemistry sodium 136 potassium 4 carbon dioxide 14 BUN 19 creatinine 1.01 Troponin obtained 1.430, serial troponins ordered In regards to start off atrial flutter patient started on IV heparin and admitted to medical floor with consultation from cardiology -patient was recently admitted with ulcerative colitis and concern for gastrointestinal bleed and was seen by gastroenterology. She had a recent colonoscopy completed last week. Patient has been on tapered dose of prednisone on 20 mg daily for 7 days followed by 10 mg daily Objective - Vital Signs Vital signs: Vital Signs Temp 98.4 F 04/28/23 10:59 Pulse 96 04/28/23 10:59 Resp 16 04/28/23 10:59 BP 136/66 04/28/23 10:59 Pulse Ox 96 04/28/23 10:59 FiO2 21 04/28/23 08:10 Intake & Output 04/27/23 04/28/23 04/28/23 18:59 06:59 18:59 Intake Total 86.55 685.717 Balance 86.55 685.717 Weight 92.079 kg Intake: Intake, IV Titration 86.55 145.717 Amount Heparin Sod,Pork in 0.45% 86.55 145.717 NaCl 25,000 unit In 0.45 % NaCl 1 250ml.bag @ 12 UNITS/KG/HR 11.049 mls/hr IV .[id number] [facility] Rx#: [id number] Oral 540 Other: Voiding Method Toilet Toilet # Voids 2 1 # Bowel Movements 1 - Exam GENERAL: The patient is alert and oriented x3, not in any acute distress. Ill appearance HEENT: Pupils are round and equally reacting to light. EOMI.. CARDIOVASCULAR: S1 and S2 present. Irregular, tachycardia PULMONARY: Chest is clear to auscultation, no wheezing or crackles. ABDOMEN: Soft, nontender, nondistended, normoactive bowel sounds. No palpable organomegaly. MUSCULOSKELETAL: No joint swelling or deformity. EXTREMITIES: No cyanosis, clubbing, or pedal edema. NEUROLOGICAL: Gross neurological examination did not reveal any focal deficits. SKIN: No rashes. - Labs CBC & Chem 7: 04/28/23 09:29 04/28/23 02:07 Labs: Abnormal Lab Results - Last 24 Hours (Table) 04/27/23 04/27/23 04/27/23 Range/Units 11:03 11:03 11:03 RBC (3.80-5.40) m/uL Hgb (11.4-16.0) gm/dL Hct (34.0-46.0) % MCH (25.0-35.0) pg MCHC (31.0-37.0) g/dL RDW (11.5-15.5) % Metamyelocytes # (Man) (0) k/uL APTT (22.0-30.0) sec Sodium (137-145) mmol/L Hemoglobin A1c 6.2 H (<=6.0) % Troponin I 1.770 H* (0.000-0.034) ng/mL TSH <0.015 L (0.465-4.680) mIU/L 04/27/23 04/27/23 04/28/23 Range/Units 17:16 23:16 02:07 RBC 3.61 L 3.22 L 3.38 L (3.80-5.40) m/uL Hgb 8.9 L 8.0 L 8.7 L (11.4-16.0) gm/dL Hct 30.0 L 26.5 L 28.3 L (34.0-46.0) % MCH 24.7 L 24.8 L (25.0-35.0) pg MCHC 29.7 L 30.2 L 30.8 L (31.0-37.0) g/dL RDW 18.1 H 18.2 H 17.9 H (11.5-15.5) % Metamyelocytes # (Man) 0.07 H (0) k/uL APTT (22.0-30.0) sec Sodium (137-145) mmol/L Hemoglobin A1c (<=6.0) % Troponin I (0.000-0.034) ng/mL TSH (0.465-4.680) mIU/L 04/28/23 04/28/23 04/28/23 Range/Units 02:07 02:07 09:29 RBC 3.34 L (3.80-5.40) m/uL Hgb 8.1 L (11.4-16.0) gm/dL Hct 27.9 L (34.0-46.0) % MCH 24.3 L (25.0-35.0) pg MCHC 29.1 L (31.0-37.0) g/dL RDW 17.8 H (11.5-15.5) % Metamyelocytes # (Man) (0) k/uL APTT 45.2 H (22.0-30.0) sec Sodium 134 L (137-145) mmol/L Hemoglobin A1c (<=6.0) % Troponin I (0.000-0.034) ng/mL TSH (0.465-4.680) mIU/L Assessment and Plan Assessment: Assessment and plan * Non-ST elevated [place], coronary artery disease with history of PCI * New onset atrial flutter * History of ulcerative colitis with gastrointestinal bleed March 2023 * Hypertension * History of depression * Hyperlipidemia * In regards to elevated troponin and new onset atrial flutter, patient started on IV heparin. Continue aspirin and brilanta. Cardiology consulted * In regards to history of ulcerative colitis and anemia continue with low intensity heparin. Continue to monitor CBC will discontinue IV anticoagulation as soon as cleared by cardiology or if starts to have worsening gastrointestinal bleed * Óscar had a recent flare of ulcerative colitis and is on tapered dose of prednisone. Continue 20 mg daily for 7 days followed by 10 mg daily * In regards to history of coronary artery disease continue aspirin, brilanta, Lipitor * In regards to history of depression continue Lexapro * CODE STATUS is full code
[2023-04-28 20:40] LABS: Chol/HDL Ratio 2.82 Ratio; LDL Cholesterol,Calculated 34.6 mg/dL (0.0-131.0)
[2023-04-28] MEDS: ATORVASTATIN 80 MG TAB PO SCH (20:44)
[2023-04-28] MEDS: tiZANidine 4 MG TAB PO SCH (20:44)
[2023-04-29] MEDS: PANTOPRAZOLE 40 MG TABLET PO SCH (06:13)
[2023-04-29 08:15] LABS: Anisocytosis Slight; Basophils % (A) 0 %; Eosinophils # (A) 0.1 k/uL (0-0.7); Eosinophils % (A) 2 %; HCT 26.7 % (34.0-46.0); Hypochromasia Marked; Lymphocytes # (A) 1.4 k/uL (1.0-4.8); Lymphocytes % (A) 31 %; MCH 24.6 pg (25.0-35.0); MCV 81.9 fL (80.0-100.0); Mean Platelet Volume 6.3; Microcytosis Slight; Monocytes # (A) 0.7 k/uL (0-1.0); Monocytes % (A) 17 %; Neutrophils # (A) 2.1 k/uL (1.3-7.7); Neutrophils % (A) 47 %; Platelet Count 369 k/uL (150-450); Poikilocytosis Slight; RBC 3.26 m/uL (3.80-5.40); RDW 18.2 % (11.5-15.5); WBC 4.4 k/uL (3.8-10.6)
[2023-04-29] MEDS ORDERED: ACETAMINOPHEN TAB 325 MG TAB PO PRN (08:23)
[2023-04-29] MEDS: TICAGRELOR 90 MG TAB PO SCH (08:25)
[2023-04-29] MEDS: ASPIRIN 81 MG PO SCH (08:25)
[2023-04-29] MEDS: predniSONE 20 MG TAB PO SCH (08:26)
[2023-04-29] MEDS: METOPROLOL SUCCINATE (ER) 25 MG TAB.ER.24H PO SCH (08:26)
[2023-04-29] MEDS: BALSALAZIDE DISODIUM 750 MG CAPSULE PO SCH (08:26)
[2023-04-29] MEDS: ESCITALOPRAM 10 MG TAB PO SCH (08:26)
[2023-04-29 08:35] LABS: African American GFR (CKD) 84 (>60 ml/min/1.73 sqM); Anion Gap 7 mmol/L; Blood Urea Nitrogen 10 mg/dL (7-17); Calcium 8.4 mg/dL (8.4-10.2); Carbon Dioxide 23 mmol/L (22-30); Chloride 106 mmol/L (98-107); Glucose 92 mg/dL (74-99); Non-African American GFR(CKD) 73 (>60 ml/min/1.73 sqM); Potassium 3.7 mmol/L (3.5-5.1); Sodium 136 mmol/L (137-145)
[2023-04-29 12:18] VITALS: BP 126/62; PULSE 91; RESP 16; TEMP 98.4
[2023-04-29 12:51] VITALS: BMI 37.1
--- NOTE | 2023-04-29 13:03 | P.PN ---
Subjective Progress Note Date: 04/29/23 Subjective: Patient is doing well from cardiac vessel standpoint. She had her a cardiac catheterization from left radial approach without any complications. Her left radial us is intact with good perfusion in the hand. She denies having any chest pain chest pressure she feels much better since the time of admission. Physical examination: Gen: This is a 52 year old obese female. She is resting on ER stretcher and appears comfortable and in no acute distress VS: reviewed HEENT: Head is atraumatic, normocephalic. Pupils equal, round. Sclerae is anicteric. NECK: Supple. No JVD. . LUNGS: Clear to auscultation. No wheezes or rhonchi. No intercostal retractions. HEART: Regular rate and rhythm. Systolic murmur. ABDOMEN: Soft No tenderness. EXTREMITIES: No pedal edema. No calf tenderness. NEUROLOGICAL: Patient is awake, alert and oriented x3. Assessment: Non-ST elevated myocardial infarction. Status post PCI to LAD History of coronary artery disease with previous stenting to the RCA 05/09/2022 Anemia, appears to be chronic, baseline hemoglobin around 8 Ulcerative colitis Hyperlipidemia Tobacco use and dependence, quit 2 weeks ago Plan: Continue aspirin and Brilinta for next 12 months Watch for any signs of bleeding. Patient educated Start by mouth iron Obtain CBC in next 1 week Follow-up with Dr. Edward in next 1-2 weeks Continue other cardiac medications. Patient is noticed to be borderline tachycardic. I feel this is because of patient's anemia. I will not do any further beta kim therapy to suppress this physiological response. Objective - Vital Signs Vital signs: Vital Signs Temp 98.4 F 04/29/23 12:16 Pulse 91 04/29/23 12:16 Resp 16 04/29/23 12:16 BP 126/62 04/29/23 12:16 Pulse Ox 96 04/29/23 12:16 FiO2 21 04/28/23 08:10 Intake & Output 04/28/23 04/29/23 04/29/23 18:59 06:59 18:59 Intake Total 699.382 540 Output Total 1 Balance 698.382 540 Weight 92.079 kg Intake: IV 425 Intake, IV Titration 94.382 Amount Heparin Sod,Pork in 0.45% 94.382 NaCl 25,000 unit In 0.45 % NaCl 1 250ml.bag @ 12 UNITS/KG/HR 11.049 mls/hr IV .[id number] [facility] Rx#: [id number] Oral 180 540 Output: Stool 1 Other: Voiding Method Toilet Toilet Toilet # Voids 1 1 # Bowel Movements 1 - Labs CBC & Chem 7: 04/29/23 07:10 04/29/23 07:10 Labs: Abnormal Lab Results - Last 24 Hours (Table) 04/28/23 04/29/23 04/29/23 Range/Units 02:07 07:10 07:10 RBC 3.26 L (3.80-5.40) m/uL Hgb 8.0 L (11.4-16.0) gm/dL Hct 26.7 L (34.0-46.0) % MCH 24.6 L (25.0-35.0) pg MCHC 30.0 L (31.0-37.0) g/dL RDW 18.2 H (11.5-15.5) % Sodium 136 L (137-145) mmol/L Triglycerides 172.00 H (0.00-149.00) mg/dL HDL Cholesterol 38.00 L (40.00-60.00) mg/dL
--- NOTE | 2023-04-29 15:01 | P.DS ---
Providers Date of admission: 04/27/23 05:10 Expected date of discharge: 04/29/23 Attending physician: Jimenez Marlow Consults: 04/27/23 05:09 Consult Physician Urgent Consulting Provider: Robbin Edward Consult Reason/Comments: chest pain Do you want consulting provider notified?: Yes 04/28/23 14:13 Consult Physician Routine Consulting Provider: [facility] Consult Reason/Comments: Post Interventional Patient Do you want consulting provider notified?: Already Contacted Primary care physician: Vishnu Avelar [facility] Course: 52-year-old lady with past medical history significant for coronary artery disease, history of hyperlipidemia, hypertension, history of GI bleed, ulcerative colitis, hypothyroid presented to the emergency department with complaints of chest pain Patient complained of midsternal chest pain, radiating down her left arm. This was associated with nausea, chest pain was brief in duration. And resolved. Patient also presents complained of associated palpitations Workup initiated in ER including EKG showed tachycardia with heart rate of [address] segment changes Blood work in ER showed CBC with hemoglobin of 9.0 hematocrit 30 platelet 398. D-dimer 0.55 Serum chemistry sodium 136 potassium 4 carbon dioxide 14 BUN 19 creatinine 1.01 Troponin obtained 1.430, serial troponins ordered In regards to start off atrial flutter patient started on IV heparin and admitted to medical floor with consultation from cardiology -patient was recently admitted with ulcerative colitis and concern for gastrointestinal bleed and was seen by gastroenterology. She had a recent colonoscopy completed last week. Patient has been on tapered dose of prednisone on 20 mg daily for 7 days followed by 10 mg daily * Non-ST elevated [place], coronary artery disease with history of PCI * New onset atrial flutter * History of ulcerative colitis with gastrointestinal bleed March 2023 * Hypertension * History of depression * Hyperlipidemia * In regards to elevated troponin and new onset atrial flutter, patient started on IV heparin. Continue aspirin and brilanta. Cardiology consulted * In regards to history of ulcerative colitis and anemia continue with low intensity heparin. Continue to monitor CBC will discontinue IV anticoagulation as soon as cleared by cardiology or if starts to have worsening gastrointestinal bleed * Óscar had a recent flare of ulcerative colitis and is on tapered dose of prednisone. Continue 20 mg daily for 7 days followed by 10 mg daily * In regards to history of coronary artery disease continue aspirin, brilanta, Lipitor * In regards to history of depression continue Lexapro Non-ST elevated myocardial infarction. Status post PCI to LAD Continue aspirin and Brilinta for next 12 months Watch for any signs of bleeding. Patient educated Start by mouth iron Obtain CBC in next 1 week Follow-up with Dr. Edward in next 1-2 weeks Patient Condition at Discharge: Fair Plan - Discharge Summary Discharge Rx Participant: Yes New Discharge Prescriptions: Continue Nitroglycerin Sl Tabs [Nitrostat] 0.4 mg SL Q5M PRN PRN Reason: Chest Pain Escitalopram [Lexapro] 10 mg PO DAILY tiZANidine [Zanaflex] 4 mg PO HS Atorvastatin [Lipitor] 80 mg PO HS #90 tab predniSONE [Deltasone] See Taper PO DAILY Ticagrelor [Brilinta] 90 mg PO BID Aspirin EC [Ecotrin Low Dose] 81 mg PO DAILY Omeprazole [PriLOSEC] 20 mg PO DAILY Rimegepant Sulfate [Nurtec Odt] 75 mg PO BID PRN PRN Reason: Migraine Headache Metoprolol Succinate [Metoprolol Succinate ER] 25 mg PO DAILY Mesalamine 4.8 gm PO DAILY Pantoprazole [Protonix] 40 mg PO DAILY #30 tab Discharge Medication List Escitalopram [Lexapro] 10 mg PO DAILY 05/06/22 [History] Mesalamine 4.8 gm PO DAILY 05/06/22 [History] Metoprolol Succinate [Metoprolol Succinate ER] 25 mg PO DAILY 05/06/22 [History] Nitroglycerin Sl Tabs [Nitrostat] 0.4 mg SL Q5M PRN 05/06/22 [History] Omeprazole [PriLOSEC] 20 mg PO DAILY 05/06/22 [History] Rimegepant Sulfate [Nurtec Odt] 75 mg PO BID PRN 05/06/22 [History] tiZANidine [Zanaflex] 4 mg PO HS 05/06/22 [History] Atorvastatin [Lipitor] 80 mg PO HS #90 tab 03/22/23 [Rx] Pantoprazole [Protonix] 40 mg PO DAILY #30 tab 03/22/23 [Rx] Aspirin EC [Ecotrin Low Dose] 81 mg PO DAILY 04/20/23 [History] Ticagrelor [Brilinta] 90 mg PO BID 04/20/23 [History] predniSONE [Deltasone] See Taper PO DAILY 04/20/23 [History] Follow up Appointment(s)/Referral(s): Robbin Edward DO [STAFF PHYSICIAN] - 1 Week (please call and schedule appointment Monday) Vishnu Avelar DO [Primary Care Provider] - 1-2 days (please call and schedule appointment Monday) Ambulatory/Diagnostic Orders: Complete Blood Count w/diff [LAB.AMB] Location: None Selected Patient Instructions/Handouts: *Surgery [facility] - After Heart Catheterization - Vamp Creaser Instructions Activity/Diet/Wound Care/Special Instructions: Keep follow up appt with Dr Garcia, monitor for any s/s of bleeding. Discharge Disposition: HOME SELF-CARE
== END 2023-04-29 14:28 | disposition home or self-care (01) | DRG 174 ==
LOC: EC 01:15 → OBSVTOIN 05:10 → 6NMEDSUR 05:10 → 3SCARD 09:41
PROVIDERS: ADMIT Hospitalist; ATTEND Hospitalist
PROC: 4A033BC Measurement of Arterial Pressure, Coronary, Percutaneous Approach (ICD-10-PCS; 2023-04-28)
PROC: 4A023N7 Measurement of Cardiac Sampling and Pressure, Left Heart, Percutaneous Approach (ICD-10-PCS; principal; 2023-04-28 08:25)
PROC: B2111ZZ Fluoroscopy of Multiple Coronary Arteries using Low Osmolar Contrast (ICD-10-PCS; 2023-04-28 08:25)
PROC: B240ZZ3 Ultrasonography of Single Coronary Artery, Intravascular (ICD-10-PCS; 2023-04-28 08:25)
PROC: 027034Z Dilation of Coronary Artery, One Artery with Drug-eluting Intraluminal Device, Percutaneous Approach (ICD-10-PCS; 2023-04-28 08:25)
DX: I21.3 ST elevation (STEMI) myocardial infarction of unspecified site (principal); I10 Essential (primary) hypertension; I48.92 Unspecified atrial flutter; I25.110 Atherosclerotic heart disease of native coronary artery with unstable angina pectoris; F32.A Depression, unspecified; E03.9 Hypothyroidism, unspecified; E78.5 Hyperlipidemia, unspecified; D64.89 Other specified anemias; R00.0 Tachycardia, unspecified; G62.9 Polyneuropathy, unspecified; I08.1 Rheumatic disorders of both mitral and tricuspid valves; M19.90 Unspecified osteoarthritis, unspecified site; Z95.5 Presence of coronary angioplasty implant and graft; Z79.899 Other long term (current) drug therapy; Z79.82 Long term (current) use of aspirin; Z79.02 Long term (current) use of antithrombotics/antiplatelets; Z79.52 Long term (current) use of systemic steroids; Z91.048 Other nonmedicinal substance allergy status; Z87.19 Personal history of other diseases of the digestive system; Z87.891 Personal history of nicotine dependence
CPT/HCPCS: 36415; 71046; 80048; 80053; 80061; 82272; 83036; 83735; 84439; 84443; 84484; 85025; 85027; 85379; 85610; 85730; 92978; 93005; 93306; 93458; 93799; 94760; 96365; 96366; 99285

== ENCOUNTER → 2023-09-15 | Outpatient (CLI) | payer OTHER ==
[2023-09-15 16:33] LABS: ALT 30 U/L (8-49); AST 27 U/L (13-35); Chol/HDL Ratio 3.13 Ratio; LDL Cholesterol,Calculated 63.6 mg/dL (0.0-131.0)
== END | disposition home or self-care (01) ==
LOC: LABWHC1 11:00
PROVIDERS: ATTEND Internal Medicine
DX: E78.2 Mixed hyperlipidemia (principal)
CPT/HCPCS: 36415; 80061; 84450; 84460

== ENCOUNTER 2023-11-19 20:22 | Emergency (ER) | payer OTHER ==
--- NOTE | 2023-11-19 20:35 | ED ---
General Adult HPI - General Chief complaint: Syncope Stated complaint: Syncope Time Seen by Provider: 11/19/23 20:29 Source: patient, family Mode of arrival: wheelchair Limitations: no limitations - History of Present Illness Initial comments: Patient was visiting her mother, who is currently a patient in the ED, when she had a syncopal episode with LOC lasting for less than 30 seconds. Patient states that she was standing up at bedside with her mother when she became lightheaded and felt that she should sit down. Patient states that she then had a syncopal episode and fell before she could sit down. Patient is unsure of head injury, but she is currently complaining of having a headache. Patient states that she has otherwise been fine today. Patient denies any other site of pain, fever or chills, focal numbness/weakness/neuro deficit, visual changes, speech difficulty, neck/back/extremity pain, chest pain, dyspnea, cough or cold symptoms, palpitations, abdominal pain, nausea/vomiting/diarrhea, bloody or melanotic stool, dysuria or urinary symptoms, or any other symptoms or complaints. - Related Data Home Medications Medication Instructions Recorded Confirmed Escitalopram [Lexapro] 10 mg PO HS 05/06/22 05/24/23 Mesalamine 4.8 gm PO DAILY 05/06/22 05/24/23 Metoprolol Succinate [Metoprolol 50 mg PO DAILY 05/06/22 05/24/23 Succinate ER] Nitroglycerin Sl Tabs [Nitrostat] 0.4 mg SL Q5M PRN 05/06/22 05/24/23 Rimegepant Sulfate [Nurtec Odt] 75 mg PO BID PRN 05/06/22 05/24/23 Aspirin EC [Ecotrin Low Dose] 81 mg PO DAILY 04/20/23 05/24/23 predniSONE [Deltasone] See Taper PO DAILY 04/20/23 05/24/23 Ezetimibe [Zetia] 10 mg PO HS 05/24/23 05/24/23 Previous Rx's Medication Instructions Recorded Atorvastatin [Lipitor] 80 mg PO HS #90 tab 03/22/23 Clopidogrel [Plavix] 75 mg PO DAILY #30 tab 05/29/23 Cyanocobalamin [Vitamin B-12] 500 mcg PO DAILY #30 tab 05/29/23 Ferrous Sulfate [Iron (65 MG 325 mg PO BID-W/MEALS #60 tab 05/29/23 Elemental)] Omeprazole [PriLOSEC] 40 mg PO DAILY #60 cap 05/29/23 Sucralfate [Carafate] 1 gm PO AC-TID #90 tab 05/29/23 Allergies Allergy/AdvReac Type Severity Reaction Status Date / Time wool Allergy Rash/Hives Verified 05/24/23 13:10 Review of Systems ROS Statement: Those systems with pertinent positive or pertinent negative responses have been documented in the HPI. ROS Other: All systems not noted in ROS Statement are negative. Past Medical History Past Medical History: Chest Pain / Angina, GI Bleed, Hyperlipidemia, Osteoarthritis (OA), Thyroid Disorder Additional Past Medical History / Comment(s): See Dr Edward's H&P. Plantar Fasciitis. Colitis. Thyroid nodule. Broke neck 3 yrs ago after falling down stairs - " Have a couple of cracks in my neck." Migraines. LT THUMB TENDONITIS, History of Any Multi-Drug Resistant Organisms: None Reported Past Surgical History: Section, Heart Catheterization With Stent, Orthopedic Surgery Additional Past Surgical History / Comment(s): Left arm surgery. Dental work. Past Anesthesia/Blood Transfusion Reactions: No Reported Reaction, Family History of Problems w/ Anesthesia Additional Past Anesthesia/Blood Transfusion Reaction / Comment(s): Mom PONV. Date of Last Stent Placement:: apr & 1 stent LAD march Past Psychological History: Depression Smoking Status: Former smoker Past Alcohol Use History: None Reported Past Drug Use History: None Reported - Past Family History Mother Family Medical History: AICD/Pacemaker, Cancer Additional Family Medical History / Comment(s): Uterine cancer. General Exam Limitations: no limitations General appearance: alert, in no apparent distress Head exam: Present: atraumatic, normocephalic Eye exam: Present: normal appearance, PERRL, EOMI ENT exam: Present: mucous membranes moist, TM's normal bilaterally Neck exam: Present: normal inspection, full ROM, other (Trachea is in midline). Absent: tenderness Respiratory exam: Present: normal lung sounds bilaterally. Absent: respiratory distress, wheezes, rales, rhonchi, stridor, chest wall tenderness Cardiovascular Exam: Present: regular rate, normal rhythm, normal heart sounds, other (Normal radial pulses bilaterally) GI/Abdominal exam: Present: soft. Absent: distended, tenderness, guarding Extremities exam: Present: full ROM, other (Pelvis is stable and nontender). Absent: tenderness, pedal edema, calf tenderness Back exam: Present: normal inspection. Absent: tenderness Neurological exam: Present: alert, oriented X3, CN II-XII intact. Absent: motor sensory deficit Skin exam: Present: warm, dry, intact, normal color Course Vital Signs 11/19/23 20:24 Temperature 99.3 F Pulse Rate 87 Respiratory 18 Rate Blood Pressure 146/89 O2 Sat by Pulse 97 Oximetry - Reevaluation(s) Reevaluation #1: 11/19/23 23:22 Patient remains alert and breathing comfortably. Patient denies being dizzy or lightheaded at this time. Patient denies development of any other new symptoms while being a patient in the ED. Patient is aware of her test results, and she feels comfortable being discharged from the ED at this time. She was counseled about syncope, and she was clearly explained return and follow-up instructions. She was instructed to follow-up closely with her primary care provider. She feels comfortable with this plan. EKG Findings - EKG Comments: EKG Findings:: ED physician interpretation (interpreted by me): Normal sinus rhythm, ventricular rate of 90 bpm, no ectopy, normal OK and QRS intervals, normal QT interval, normal axis, nonspecific ST abnormality, no ST elevation Medical Decision Making - Medical Decision Making Was pt. sent in by a medical professional or institution (, PA, STRIPE MARKER, urgent care, hospital, or [place] health care facility...) When possible be specific @ -No Did you speak to anyone other than the patient for history (EMS, parent, family, police, friend...)? What history was obtained from this source @ -No Did you review nursing and triage notes (agree or disagree)? Why? @ -I reviewed and agree with nursing and triage notes Were old charts reviewed (outside hosp., previous admission, EMS record, old EKG, old radiological studies, urgent care reports/EKG's, [place] health care facility records)? Report findings @ -No old charts were reviewed Differential Diagnosis (chest pain, altered mental status, abdominal pain women, abdominal pain men, vaginal bleeding, weakness, fever, dyspnea, syncope, headache, dizziness, GI bleed, back pain, seizure, CVA, palpatations, mental health, musculoskeletal)? @ -Differential Syncope: Valvular disease, hypertrophic cardiomyopathy, tamponade, tachycardia, bradycardia, PA, hypovolemia, hemorrhage, dysrhythmia, anemia, intracranial hemorrhage, seizure, hypoglycemia, this is not meant to be an all-inclusive list. EKG interpreted by me (3pts min.). @ -As above X-rays interpreted by me (1pt min.). @ -Chest x-ray was reviewed myself and shows no acute cardiopulmonary process. I agree with the radiologist's interpretation as above. CT interpreted by me (1pt min.). @ -Noncontrast head CT was reviewed myself and shows no acute intracranial abnormality. I agree with the radiologist's interpretation as above. U/S interpreted by me (1pt. min.). @ -None done What testing was considered but not performed or refused? (CT, X-rays, U/S, labs)? Why? @ -None What meds were considered but not given or refused? Why? @ -None Did you discuss the management of the patient with other professionals (professionals i.e. , PA, STRIPE MARKER, lab, RT, psych nurse, high school social studies teacher, oliving machine operator, teacher, booking police officer, pillowcase folder)? Give summary @ -No Was smoking cessation discussed for >3mins.? @ -No Was critical care preformed (if so, how long)? @ -No Were there social determinants of health that impacted care today? How? (Homelessness, low income, unemployed, alcoholism, drug addiction, transport ation, low edu. Level, literacy, decrease access to med. care, assisted, rehab)? @ -No Was there de-escalation of care discussed even if they declined (Discuss DNR or withdrawal of care, Hospice)? DNR status @ -No What co-morbidities impacted this encounter? (DM, HTN, Smoking, COPD, CAD, Cancer, CVA, ARF, Chemo, Hep., AIDS, mental health diagnosis, sleep apnea, morbid obesity)? @ -None Was patient admitted / discharged? Hospital course, mention meds given and route, prescriptions, significant lab abnormalities, going to OR and other pertinent info. @ -Patient had a syncopal episode while at bedside with her mother as a visitor in the ED. Patient's labs, EKG and imaging studies are all fairly unremarkable. Patient has had stable vital signs while in the ED. I suspect that her syncopal episode was likely vasovagal in etiology. I do not suspect an emergent medical condition at this time. Will discharge patient from the ED at this time. Patient feels comfortable with this plan. Strict return instructions were provided. Undiagnosed new problem with uncertain prognosis? @ -No Drug Therapy requiring intensive monitoring for toxicity (Heparin, Nitro, Insulin, Cardizem)? @ -No Were any procedures done? @ -No Diagnosis/symptom? @ -Syncope Acute, or Chronic, or Acute on Chronic? @ -Acute Uncomplicated (without systemic symptoms) or Complicated (systemic symptoms)? @ -Default Side effects of treatment? @ -No Exacerbation, Progression, or Severe Exacerbation? @ -No Poses a threat to life or bodily function? How? (Chest pain, USA, PA, pneumonia, PE, COPD, DKA, ARF, appy, cholecystitis, CVA, Diverticulitis, Homicidal, Suicidal, threat to staff... and all critical care pts) @ -No - Lab Data Result diagrams: 11/19/23 20:35 11/19/23 20:35 Lab Results 11/19/23 11/19/23 11/19/23 Range/Units 20:35 20:35 20:35 WBC 5.4 (3.8-10.6) k/uL RBC 4.59 (3.80-5.40) m/uL Hgb 13.4 (11.4-16.0) gm/dL Hct 42.3 (34.0-46.0) % MCV 92.1 (80.0-100.0) fL MCH 29.1 (25.0-35.0) pg MCHC 31.6 (31.0-37.0) g/dL RDW 16.6 H (11.5-15.5) % Plt Count 297 (150-450) k/uL MPV 7.1 Neutrophils % 56 % Lymphocytes % 26 % Monocytes % 9 % Eosinophils % 6 % Basophils % 1 % Neutrophils # 3.0 (1.3-7.7) k/uL Lymphocytes # 1.4 (1.0-4.8) k/uL Monocytes # 0.5 (0-1.0) k/uL Eosinophils # 0.3 (0-0.7) k/uL Basophils # 0.1 (0-0.2) k/uL Anisocytosis Slight PT 10.5 (10.0-12.5) sec INR 1.0 (<1.2) APTT 24.1 (22.0-30.0) sec Sodium 135 L (137-145) mmol/L Potassium 4.0 (3.5-5.1) mmol/L Chloride 106 (98-107) mmol/L Carbon Dioxide 18 L (22-30) mmol/L Anion Gap 11 mmol/L BUN 10 (7-17) mg/dL Creatinine 0.74 (0.52-1.04) mg/dL Est GFR (CKD-EPI)AfAm >90 (>60 ml/min/1.73 sqM) Est GFR (CKD-EPI)NonAf >90 (>60 ml/min/1.73 sqM) Glucose 97 (74-99) mg/dL Calcium 8.8 (8.4-10.2) mg/dL Magnesium 1.7 (1.6-2.3) mg/dL Total Bilirubin 0.8 (0.2-1.3) mg/dL AST 29 (14-36) U/L ALT 24 (4-34) U/L Alkaline Phosphatase 197 H (38-126) U/L Troponin I (0.000-0.034) ng/mL Total Protein 6.7 (6.3-8.2) g/dL Albumin 3.6 (3.5-5.0) g/dL 11/19/23 Range/Units 20:35 WBC (3.8-10.6) k/uL RBC (3.80-5.40) m/uL Hgb (11.4-16.0) gm/dL Hct (34.0-46.0) % MCV (80.0-100.0) fL MCH (25.0-35.0) pg MCHC (31.0-37.0) g/dL RDW (11.5-15.5) % Plt Count (150-450) k/uL MPV Neutrophils % % Lymphocytes % % Monocytes % % Eosinophils % % Basophils % % Neutrophils # (1.3-7.7) k/uL Lymphocytes # (1.0-4.8) k/uL Monocytes # (0-1.0) k/uL Eosinophils # (0-0.7) k/uL Basophils # (0-0.2) k/uL Anisocytosis PT (10.0-12.5) sec INR (<1.2) APTT (22.0-30.0) sec Sodium (137-145) mmol/L Potassium (3.5-5.1) mmol/L Chloride (98-107) mmol/L Carbon Dioxide (22-30) mmol/L Anion Gap mmol/L BUN (7-17) mg/dL Creatinine (0.52-1.04) mg/dL Est GFR (CKD-EPI)AfAm (>60 ml/min/1.73 sqM) Est GFR (CKD-EPI)NonAf (>60 ml/min/1.73 sqM) Glucose (74-99) mg/dL Calcium (8.4-10.2) mg/dL Magnesium (1.6-2.3) mg/dL Total Bilirubin (0.2-1.3) mg/dL AST (14-36) U/L ALT (4-34) U/L Alkaline Phosphatase (38-126) U/L Troponin I <0.012 (0.000-0.034) ng/mL Total Protein (6.3-8.2) g/dL Albumin (3.5-5.0) g/dL - Radiology Data Chest x-ray: Chronic changes without evidence for acute pulmonary disease. Noncontrast head CT: Age-related atrophic and chronic small vessel ischemic change without acute intracranial process seen at this time. Disposition Clinical Impression: Syncope Disposition: HOME SELF-CARE Condition: Stable Instructions (If sedation given, give patient instructions): Syncope (ED) Additional Instructions: Return to the ER immediately should you develop new or worsening pain, feeling dizzy or faint, a high fever, persistent vomiting, shortness of breath, or new or worsening symptoms. Follow-up closely with your primary care provider. Is patient prescribed a controlled substance at d/c from ED?: No Referrals: None,Stated [REFERRING] - 1-2 days Roberth Bradley MD [STAFF PHYSICIAN] - 1-2 days Time of Disposition: 23:23
[2023-11-19 20:52] LABS: Anisocytosis Slight; Basophils # (A) 0.1 k/uL (0-0.2); Basophils % (A) 1 %; Eosinophils # (A) 0.3 k/uL (0-0.7); Eosinophils % (A) 6 %; HCT 42.3 % (34.0-46.0); HGB 13.4 gm/dL (11.4-16.0); Lymphocytes # (A) 1.4 k/uL (1.0-4.8); Lymphocytes % (A) 26 %; MCH 29.1 pg (25.0-35.0); MCHC 31.6 g/dL (31.0-37.0); MCV 92.1 fL (80.0-100.0); Mean Platelet Volume 7.1; Monocytes # (A) 0.5 k/uL (0-1.0); Monocytes % (A) 9 %; Neutrophils % (A) 56 %; Platelet Count 297 k/uL (150-450); RBC 4.59 m/uL (3.80-5.40); RDW 16.6 % (11.5-15.5); WBC 5.4 k/uL (3.8-10.6)
[2023-11-19] MEDS: SODIUM CHLORIDE 0.9% 500 ML 500 ML IV STA (20:54)
[2023-11-19 21:04] VITALS: RESP 18; TEMP 99.3
[2023-11-19 21:05] LABS: Partial Thromboplastin Time 24.1 sec (22.0-30.0); Prothrombin Time 10.5 sec (10.0-12.5)
[2023-11-19 21:26] LABS: ALT 24 U/L (4-34); AST 29 U/L (14-36); African American GFR (CKD) >90 (>60 ml/min/1.73 sqM); Albumin 3.6 g/dL (3.5-5.0); Alkaline Phosphatase 197 U/L (38-126); Anion Gap 11 mmol/L; Blood Urea Nitrogen 10 mg/dL (7-17); Calcium 8.8 mg/dL (8.4-10.2); Carbon Dioxide 18 mmol/L (22-30); Chloride 106 mmol/L (98-107); Glucose 97 mg/dL (74-99); Magnesium 1.7 mg/dL (1.6-2.3); Non-African American GFR(CKD) >90 (>60 ml/min/1.73 sqM); Sodium 135 mmol/L (137-145); Total Bilirubin 0.8 mg/dL (0.2-1.3); Total Protein 6.7 g/dL (6.3-8.2)
--- NOTE | 2023-11-19 21:29 | CT ---
EXAMINATION TYPE: CT brain wo con DATE OF EXAM: 11/19/2023 COMPARISON: 09/04/2022 HISTORY: syncope CT DLP: 1093.[address] of the brain was performed. The ventricles, basal cisterns and sulci overlying the cerebral convexities demonstrate mild enlargem ent. There is no evidence for intracranial hemorrhage or sulcal effacement. There is decreased attenuation about the periventricular white matter and deep white matter of both c erebral hemispheres, compatible with chronic small vessel ischemia. Differential diagnosis does inclu de demyelination. No mass effects are seen.No midline shift. Osseous calvarium is intact. If symptoms persist consider MRI. IMPRESSION: 1. Age related atrophic and chronic small vessel ischemic change without acute intracranial process s een at this time.
--- NOTE | 2023-11-19 21:30 | XR ---
EXAMINATION TYPE: XR chest 1V portable DATE OF EXAM: 11/19/2023 HISTORY: Shortness of breath. COMPARISON: 04/27/2023 TECHNIQUE: Single view of the chest is submitted. FINDINGS: Demonstrated are scattered senescent parenchymal change. There is no evidence for focal infiltrate. The heart is stable. Hilar and mediastinal structures are within normal limits. Degenerative changes are seen of the dorsal spine. IMPRESSION: 1. Chronic changes without evidence for acute pulmonary disease.
[2023-11-19] MEDS: ACETAMINOPHEN TAB 500 MG TAB PO STA (21:55)
[2023-11-20 00:46] VITALS: BP 146/79; PULSE 80
== END 2023-11-20 00:36 | disposition home or self-care (01) ==
LOC: EC 20:22
DX: R55 Syncope and collapse (principal); Z87.891 Personal history of nicotine dependence; Z91.048 Other nonmedicinal substance allergy status
CPT/HCPCS: 36415; 70450; 71045; 80053; 83735; 84484; 85025; 85610; 85730; 93005; 96360; 96361; 99285

== ENCOUNTER → 2024-08-27 | Outpatient (CLI) | payer OTHER ==
[2024-08-27 15:22] LABS: Basophils # (A) 0.05 X 10*3/uL (0.00-0.10); Basophils % (A) 0.6 %; Eosinophils % (A) 1.3 %; HCT 37.8 % (37.2-50.0); HGB 11.3 g/dL (12.0-17.0); Lymphocytes # (A) 1.43 X 10*3/uL (0.90-5.00); Lymphocytes % (A) 17.9 %; MCH 28.5 pg (27.0-32.0); MCHC 29.9 g/dL (32.0-37.0); MCV 95.2 FL (80.0-97.0); Mean Platelet Volume 8.6 FL (9.5-12.2); Monocytes # (A) 0.52 X 10*3/uL (0.20-1.00); Monocytes % (A) 6.5 %; NRBC Per 100 WBC 0 X 10*3/uL (0.00-0.01); Neutrophils # (A) 5.84 X 10*3/uL (1.80-7.70); Neutrophils % (A) 73.2 %; Platelet Count 437 X 10*3/uL (140-440); RBC 3.97 X 10*6/uL (4.10-5.60); RDW 15.2 % (11.5-14.5); WBC 7.98 X 10*3/uL (4.50-10.00)
[2024-08-27 17:11] LABS: ALT 6 U/L (8-49); AST 13 U/L (13-35); Albumin 2.6 g/dL (3.8-4.9); Albumin/Globulin Ratio 1.08 Ratio (1.60-3.17); Alkaline Phosphatase 158 U/L (41-126); BUN/Creat Ratio 7.75 Ratio (12.00-20.00); Blood Urea Nitrogen 6.2 mg/dL (9.0-27.0); Calcium 8.3 mg/dL (8.7-10.3); Carbon Dioxide 24.2 mmol/L (21.6-31.8); Chloride 106 mmol/L (96-109); Chol/HDL Ratio 2.61 Ratio; Globulin 2.4 g/dL (1.6-3.3); Glucose 116 mg/dL (70-110); Iron 17 UG/DL (50-175); LDL Cholesterol,Calculated 53.1 mg/dL (0.0-131.0); Potassium 3.6 mmol/L (3.5-5.5); Sodium 141 mmol/L (135-145); T4, Free (Free Thyroxine) 0.99 ng/dL (0.80-1.80); Total Bilirubin 0.2 mg/dL (0.3-1.2); VLDL Calculation 15.26 mg/dL (5.00-40.00)
== END | disposition home or self-care (01) ==
LOC: LABWHC1 09:11
PROVIDERS: ATTEND Family Medicine
DX: K51.90 Ulcerative colitis, unspecified, without complications (principal); I10 Essential (primary) hypertension; Z79.891 Long term (current) use of opiate analgesic
CPT/HCPCS: 36415; 80053; 80061; 83036; 83540; 84439; 84443; 84481; 85025

== ENCOUNTER → 2024-09-05 | Outpatient (CLI) | payer OTHER ==
[~2024-09-05] MED LIST changes: -LACTATED RINGERS 1,000 ML IV SCH; -LIDOCAINE 1% (10MG/ML) FOR IV START INTRADERMA PRN; -PROPOFOL 10 MG/ML 20 ML VIAL IV ONE; +SODIUM CHLORIDE 0.9% 250 ML in EMPTY BAG 1 BAG IV PRN
[2024-09-05 08:10] VITALS: BP 146/77; PULSE 100; RESP 16; TEMP 97.6
[2024-09-05] MEDS: SODIUM FERRIC GLUCONAT-SUCROSE 125 MG in SODIUM CHLORIDE 0.9% 100 ML IVPB NR (08:13)
[2024-09-05] MEDS: SODIUM CHLORIDE 0.9% 500 ML 500 ML in EMPTY BAG 1 BAG IV PRN (08:13)
== END ==
LOC: PROCWHC3 08:00
PROVIDERS: ATTEND Nurse Practitioner Family
DX: D64.9 Anemia, unspecified (principal)
CPT/HCPCS: 96365; J2916

== ENCOUNTER → 2024-09-12 | Outpatient (CLI) | payer OTHER ==
--- NOTE | 2024-09-12 17:03 | US ---
EXAMINATION TYPE: US thyroid st tissue head/neck DATE OF EXAM: 09/12/2024 COMPARISON: US 2019 CLINICAL INDICATION: Female, 54 years old with history of E05.90 THYROTOXICOSIS; Hyperthyroidism TECHNIQUE: Grayscale and color Doppler imaging of the thyroid gland. FINDINGS: GLAND SIZE: Right Lobe: 5.6 x 2.0 x 2.2 cm Overall Parenchyma: homogeneous Left Lobe: 3.9 x 1.4 x 1.4 cm Overall Parenchyma: homogeneous Isthmus Thickness: 0.25 cm NODULES RIGHT: # of nodules measured on right: 1 1. 2.9 X 1.8 x 1.6 cm, upper-mid mid, solid or almost completely solid, hypoechoic TR 4 accompanyin g the 1220 mL of were injected by 2 by also aggravating Clark's cyst. nodule, which is wider than tall, with smooth margins, with echogenic foci. Prior size: 2.8 x 2.0 x 1.9 cm LEFT: # of nodules measured on left: 1 1. 1.0 X 0.9 x 0.5 cm, benign midpole cyst The Prior size: 0.4 cm length ISTHMUS: # of nodules measured in the isthmus: 0 Bilateral neck scanned, no evidence of lymphadenopathy. IMPRESSION: 1. A large TR4 nodule in the right lobe relatively unchanged at 2.9 cm. 2. Additional benign 1 cm cyst left lobe. 2017 ACR TI-RADS LEVEL: TR-RADS 4 - Moderately Suspicious: Follow if > 1 cm, FNA if > 1.5 cm *Highest TI-RADS level nodule reported [facility], Workstation: [email or web address], 09/12/2024 5:00 PM
== END | disposition home or self-care (01) ==
LOC: RADUSWWP 15:45
PROVIDERS: ATTEND Family Medicine
DX: E05.90 Thyrotoxicosis, unspecified without thyrotoxic crisis or storm (principal); E04.1 Nontoxic single thyroid nodule
CPT/HCPCS: 76536